=== PATIENT | male | born 1970 | race Caucasian/White ===

== ENCOUNTER 2018-04-25 15:22 | Emergency (ER) | payer MEDICARE, MEDICAID, SELFPAY ==
[2018-04-25 15:28] VITALS: BP 135/87; PULSE 86; RESP 20; TEMP 36.6; O2SAT 98; BMI 35.7
--- NOTE | 2018-04-25 16:50 | DI.RAD.S_ITS ---
PROCEDURE: XR HAND LT MIN 3V INDICATIONS: ? chronic infection/fb? TECHNIQUE: 3 views of the hand(s) acquired. COMPARISON: None. FINDINGS: Bones: No fractures or dislocations. Carpal bones are normally aligned. No suspicious bony lesions. Soft tissues: No suspicious soft tissue calcifications. IMPRESSION: No acute fracture. No osseous lesion. If symptoms and/or clinical suspicion for pathology persist, further assessment with repeat, or advanced imaging (e.g., CT, MRI, or bone scan) may be helpful for further assessment. Dictated by: Manuel Garcia M.D. on 04/25/2018 at 17:07 Approved by: Manuel Garcia M.D. on 04/25/2018 at 17:07
--- NOTE | 2018-04-25 17:14 | PC.NURSE ---
Patient has duct tape to top of right hand. States he had a wound on it a couple months ago which he treated at home by puncturing it with a needle. Has duct tape applied directly to the skin on the top of his hand, which I removed. Top of hand is red and swollen, no open wounds.
[2018-04-25 17:34] VITALS: BP 128/77; PULSE 80; RESP 15; O2SAT 99
--- NOTE | 2018-04-25 18:06 | PC.NURSE ---
Mother is standing in hallway asking to see the physician. I explained to her that the doctor would be there as soon as possible. He complains of pain to left hand, I gave him an ice pack for comfort. Mother reports Can they put some lidocaine in him? If someone doesn't see him soon he's going to cut it open himself. I asked her if he had anything in the room with which to cut it and if so I would take it away. She repllied no.
[2018-04-25] MEDS: fentaNYL 100 MCG/2 ML INJ IV (18:43)
[2018-04-25] MEDS: cephALEXin 250 MG PREPACK 1 BOTTLE MISC (18:45)
[2018-04-25] MEDS: SULFA/TRIMETH 800/160 PREPACK 1 BOTTLE MISC (18:48)
--- NOTE | 2018-04-25 19:14 | ED.UPPEXIN ---
HPI - Extremity Injury (Upper) General Chief Complaint: Extremity Injury, Upper Stated Complaint: STATES INFECTION LEFT HAND. Time Seen by Provider: 04/25/18 16:49 History of Present Illness HPI narrative: HPI 47-year-old male with TBI, ADD, personality disorder, HTN, and history of heroin abuse presents for evaluation of ~3 days of left mid dorsal and swelling approximately 5 cm in diameter with a 2 cm central area of fluctuance and increased tenderness, there is erythema and warmth. Patient reports that 2 months ago he cut the back of his hand on a piece of glass and has had problems with infection since. Denies fevers and chills. ROS with no recent constitutional symptoms. Exam Gen: Pleasant, nontoxic-appearing, resting comfortably. HEENT: NC, AT, PEERL, EOMI. Resp: Unlabored respirations with a normal work of breathing. Card: Extremities warm and well perfused. GI: Non-distended. : Deferred MSK: left-hand with a 5 cm in diameter area of erythema, warmth, and tenderness with a 2 cm central area of fluctuance and increased tenderness. No palpable crepitus. 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 Globally reduced ROM of flexion, extension, abduction, adduction, opposition secondary to dorsal discomfort. Wrist visually normal. All fingers warm and well perfused with sensation intact to touch. Neuro: AO x 3, no facial asymmetry, vision and hearing WNL. Heme/Lymph: Deferred Skin: Normal color with no visible lesions (other than noted above). Psych: Mood and affect appropriate. Focused Soft Tissue Ultrasound Procedure: Limited evaluation of the dorsum of the left hand. Indication: Evaluation for abscesses and foreign bodies. Views obtained: sagittal and transverse. Findings: central fluid collection of approximately 1.2 cm in diameter and 0.5 cm deep, surrounding soft tissue cobblestoning. No gas. No foreign bodies visualized. MDM Previous chart, nursing note, and vitals reviewed. A/P: 47-year-old male with TBI, ADD, personality disorder, HTN, and history of heroin abuse presents for evaluation of ~3 days of left mid dorsal and swelling approximately 5 cm in diameter with a 2 cm central area of fluctuance and increased tenderness, there is erythema and warmth. Soft tissue ultrasound demonstrating cellulitis with the central abscess immediately under the skin. This was drained as below. Patient given Bactrim and Keflex in the ED with outpatient prescriptions provided. Patient instructed to follow up with hand surgeon park recreation manager, Dr. Gilliland of [facility]. Return to care precautions provided. Incision and Drainage Verbal consent obtained. The abscess and surrounding area was cleaned with chlorhexidine for 30 seconds. A field block using 3 mL of 1% lidocaine with epinephrine was performed. An 11 blade was used to make two 0.6 cm long incisions on either end of the area of fluctuance, there was expression of purulent material, sterile hemostats were used to break loculations and a sterile section of Basom drain was placed as a loop between the 2 incisions to allow for further drainage. A sterile dressing was placed over the wound. The patient tolerated the procedure well without any apparent complications. Impression: abscess (please reference below for remainder of encounter information) Related Data Previous Rx's Medication Instructions Recorded alprazolam [Xanax] 1 mg PO QID #120 tab 11/17/17 lisinopril 10 mg PO QDAY #90 tab 11/17/17 sumatriptan succinate [Imitrex] 100 mg PO PRN PRN #9 tab 11/17/17 verapamil 80 mg PO QDAY #90 tab 11/17/17 zolpidem 10 mg PO HS #30 tab 11/17/17 prazosin [Minipress] 2 mg PO QHS #90 cap 01/10/18 dextroamphetamine-amphetamine 15 mg PO BID #60 tab 02/16/18 Allergies Allergy/AdvReac Type Severity Reaction Status Date / Time naproxen [NAPROXEN] Allergy Severe LE EDEMA Verified 04/25/18 15:27 [facility] Social History Smoking Status: Never smoker Exam Initial Vital Signs Initial Vital Signs: Vital Signs Temperature 98 F 04/25/18 15:28 Pulse Rate 86 04/25/18 15:28 Respiratory Rate 20 04/25/18 15:28 Blood Pressure 135/87 H 04/25/18 15:28 Pulse Oximetry 98 04/25/18 15:28 Course Orders Ordered: ED Orders 04/25/18 16:50 XR hand LT min 3V Stat Discontinued Medications Cefazolin Sodium (Keflex) 1 bottle MISC SEEINSTR ONE Stop: 04/25/18 18:28 Last Admin: 04/25/18 18:45 Dose: 250 mg Fentanyl (Sublimaze) 100 mcg IV NOW ONE Stop: 04/25/18 18:28 Last Admin: 04/25/18 18:43 Dose: 100 mcg Trimethoprim/Sulfamethoxazole (Bactrim Ds Prepack) 1 bottle MISC SEEINSTR ONE Stop: 04/25/18 18:28 Last Admin: 04/25/18 18:48 Dose: 1 bottle Vital Signs - 8 hr 04/25/18 15:28 04/25/18 17:34 Temperature 98 F Pulse Rate 86 80 Respiratory Rate 20 15 Blood Pressure 135/87 H Blood Pressure [Right Arm] 128/77 H Pulse Oximetry 98 99 Discharge Plan Departure Prescriptions: No Action alprazolam [Xanax] 1 MG tablet 1 mg PO QID Qty: 120 RF: 5 sumatriptan succinate [Imitrex] 100 MG tablet 100 mg PO PRN PRNQty: 9 RF: 3 lisinopril 10 MG tablet 10 mg PO QDAY Qty: 90 RF: 3 verapamil 80 MG tablet 80 mg PO QDAY Qty: 90 RF: 3 zolpidem 10 MG tablet 10 mg PO HS Qty: 30 RF: 5 prazosin [Minipress] 2 MG capsule 2 mg PO QHS Qty: 90 RF: 3 dextroamphetamine-amphetamine 15 MG tablet 15 mg PO BID Qty: 60 RF: 0
--- NOTE | 2018-04-25 19:32 | PC.NURSE ---
NON-STICK DRESSING PLACED ON LEFT HAND, PER PROVIDER.
[2018-04-25 19:34] VITALS: BP 135/87; PULSE 86; RESP 20; TEMP 36.6; O2SAT 98
== END 2018-04-25 19:37 | disposition home or self-care (01) ==
PROVIDERS: Emergency Provider Emergency Medicine; PCP Family Medicine
DX: L02.512 Cutaneous abscess of left hand (principal)
CPT/HCPCS: 10060; 73130; 96374; 99283; 99284; J3010

== ENCOUNTER 2018-08-09 11:13 | Emergency (ER) | payer MEDICARE, MEDICAID, SELFPAY ==
[2018-08-09 11:25] VITALS: BP 140/85; PULSE 82; RESP 20; TEMP 36.7; O2SAT 96; BMI 35.7
--- NOTE | 2018-08-09 13:34 | ED_ITS ---
HPI - Extremity Injury (Upper) <NALLELY PastranaBC - Last Filed: 08/09/18 15:06> General Chief Complaint: Extremity Injury, Upper Stated Complaint: LEFT ARM INFECTION Time Seen by Provider: 08/09/18 13:21 Source: patient Mode of arrival: ambulatory Limitations: no limitations History of Present Illness HPI narrative: Patient presents with chief complaint of abscess in his left AC. Patient states he believes he gets abscesses from using ?bad heroin.? He denies any fevers, nausea, vomiting, diarrhea. He complains of redness and pain in his left AC. He stuck a needle in it yesterday to try to drain it himself and states he ?got some pus out.? He states he is able to use his right arm and bend his left elbow, but not as far due to pain. Related Data Home Medications Medication Instructions Recorded Confirmed verapamil 80 mg PO QPM 08/09/18 08/09/18 Previous Rx's Medication Instructions Recorded lisinopril 10 mg PO QDAY #90 tab 11/17/17 zolpidem 10 mg tablet 10 mg PO HS #30 tab 05/11/18 clonazepam 2 mg tablet 2 mg PO BID #60 tab 08/09/18 dextroamphetamine-amphetamine 15 15 mg PO BID #60 tab 08/09/18 mg tablet sulfamethoxazole-trimethoprim 1 tab PO BID #20 tab 08/09/18 [Bactrim DS] Allergies Allergy/AdvReac Type Severity Reaction Status Date / Time naproxen [NAPROXEN] Allergy Severe LE EDEMA Verified 04/25/18 15:27 Review of Systems <NALLELY Pastrana - Last Filed: 08/09/18 15:06> Review of Systems GENERAL: Denies chills, fatigue, malaise, fever, sweats. HEENT: Denies sinus pain, ear pain, sore throat, difficulty swallowing, dizziness. RESPIRATORY: Denies dyspnea, cough, wheezing, hemoptysis, sputum. CARDIOVASCULAR: Denies chest pain, palpitations, orthopnea, edema, GASTROINTESTINAL: Denies nausea, vomiting, abdominal pain, diarrhea, constipation, melena. : Denies dysuria, frequency, incontinence, hematuria, urinary retention. MUSCULOSKELETAL: denies weakness, joint pain, or bony pain SKIN: See HPI NEUROLOGIC: Denies weakness, headache, numbness, change in speech, confusion, seizures, incoordination. PSYCHIATRIC: No concerning psychosocial issues. 12 point review of systems is negative except for those stated above Exam <BEBA Pastrana - Last Filed: 08/09/18 15:06> Narrative Exam Narrative: GENERAL: This is a well-nourished, well-developed patient, in mild distress. HEAD: Atraumatic. Normocephalic. No temporal or scalp tenderness. EYES: Pupils equal round and reactive. Extraocular motions intact. No scleral icterus. No injection or drainage. ENT: Nose without bleeding, purulent drainage or septal hematoma. Throat without erythema, tonsillar hypertrophy or exudate. Uvula midline. Airway patent. NECK: Trachea midline. No JVD or lymphadenopathy. Supple, nontender, no meningeal signs. CARDIOVASCULAR: Regular rate and rhythm without murmurs, gallops, or rubs. RESPIRATORY: Clear to auscultation. Breath sounds equal bilaterally. No wheezes , rales, or rhonchi. GASTROINTESTINAL: Abdomen soft, non-tender, nondistended. No hepato-splenomegaly , or palpable masses. No guarding. EXTREMITIES: No clubbing, cyanosis, or edema. No joint tenderness, effusion, or edema noted. BACK: Nontender without deformity or crepitance. No flank tenderness. NEURO: AOx3. SKIN: 10 but 11 cm area of erythema noted left AC. 1x2 cm area fluctuance noted left AC Initial Vital Signs Initial Vital Signs: Vital Signs Temperature 98.1 F 08/09/18 11:25 Pulse Rate 82 08/09/18 11:25 Respiratory Rate 20 08/09/18 11:25 Blood Pressure 140/85 08/09/18 11:25 Pulse Oximetry 96 08/09/18 11:25 <Joaquina Hilario MD - Last Filed: 08/09/18 18:59> Initial Vital Signs Initial Vital Signs: Vital Signs Temperature 98.1 F 08/09/18 11:25 Pulse Rate 82 08/09/18 11:25 Respiratory Rate 20 08/09/18 11:25 Blood Pressure 140/85 08/09/18 11:25 Pulse Oximetry 96 08/09/18 11:25 Procedures <BEBA Pastrana - Last Filed: 08/09/18 15:06> Abscess I/D Site: upper extremity Side (if applicable): left Local Anesthetic: lidocaine 2% Amount of anesthesia used (mL): 4 Technique: incised with #11 blade Amount of fluid expressed (mL): 0 Irrigation: No Packing used?: none Course <BEBA Pastrana - Last Filed: 08/09/18 15:06> Vital Signs - 8 hr 08/09/18 11:25 Temperature 98.1 F Pulse Rate 82 Respiratory Rate 20 Blood Pressure 140/85 Pulse Oximetry 96 <Joaquina Hilario MD - Last Filed: 08/09/18 18:59> Vital Signs - 8 hr 08/09/18 11:25 Temperature 98.1 F Pulse Rate 82 Respiratory Rate 20 Blood Pressure 140/85 Pulse Oximetry 96 MDM - Extremity Injury (Upper) <BEBA Pastrana - Last Filed: 08/09/18 15:06> MDM Narrative Medical decision making narrative: Patient presents with concern for an abscess in his left AC. He has been draining it by himself at home with a needle or a knife. I discussed that I did not think I would obtain much of anything from an incision and drainage, but the patient requested that I try any way. No pus or fluid was obtained from his AC as documented. Given the erythema, I initiated treatment with Bactrim. He does have a history of IV drug use, which places him higher risk for MRSA infection. He does not have any signs of systemic illness at this point time. I discussed monitoring for the signs including fever, vomiting and extending of erythema beyond the outline [place] after doses of antibiotics. Patient no questions or concerns upon discharge and stated understanding of this plan of care. Discharge Plan Departure Patient Disposition: Home Clinical Impression: Cellulitis Discharge Date/Time: 08/09/18 15:06 Interventions: ED Discharge Assessment Last Done: 08/09/18 15:04 Instructions: DI for Cellulitis -- Adult Activity Restrictions/Additional Instructions: I am starting on antibiotics for the infection in her arm. Please stop doing IV drugs. Please monitor for fever, vomiting, diarrhea and systemic symptoms. Please be direct evaluated if any of these occur. Please monitor for redness extending outside of the marker after a few doses of the antibiotics and please be evaluated if that occurs. Prescriptions: New sulfamethoxazole-trimethoprim [Bactrim DS] 800-160 mg tablet 1 tab PO BID Qty: 20 RF: 0 No Action lisinopril 10 MG tablet 10 mg PO QDAY Qty: 90 RF: 3 zolpidem 10 mg tablet 10 mg PO HS Qty: 30 RF: 5 clonazepam 2 mg tablet 2 mg PO BID Qty: 60 RF: 0 dextroamphetamine-amphetamine 15 mg tablet 15 mg PO BID Qty: 60 RF: 0 verapamil 80 MG tablet 80 mg PO QPM RF: 0 Referrals: Liz Livingston MD [Primary Care Provider] -
== END 2018-08-09 15:06 | disposition home or self-care (01) ==
PROVIDERS: Emergency Provider Nurse Practitioner Family; PCP Family Medicine
DX: L03.114 Cellulitis of left upper limb (principal)
CPT/HCPCS: 10060; 99282; 99283

== ENCOUNTER 2018-11-13 14:33 | Emergency (ER) | payer MEDICARE, MEDICAID, SELFPAY ==
[2018-11-13 14:55] VITALS: TEMP 36.4; BMI 35.7
== END 2018-11-13 15:56 | disposition left against medical advice (07) ==
LOC: ED 14:57
PROVIDERS: PCP Family Medicine
DX: L02.415 Cutaneous abscess of right lower limb (principal)
CPT/HCPCS: 99281; 99282

== ENCOUNTER 2018-11-14 08:59 | Emergency (ER) | payer MEDICARE, MEDICAID, SELFPAY ==
[2018-11-14 09:18] VITALS: BP 121/71; PULSE 82; RESP 16; TEMP 37.3; O2SAT 100; BMI 35.7
[2018-11-14 12:17] VITALS: BP 116/58; PULSE 79; RESP 17; TEMP 37.1; O2SAT 100
[2018-11-14 13:00] VITALS: BP 99/50; PULSE 73; O2SAT 100
--- NOTE | 2018-11-14 13:29 | ED_ITS ---
HPI - Extremity Problem General Chief complaint: Extremity Injury, Lower Stated complaint: ABCESS ON RIGHT LEG Time Seen by Provider: 11/14/18 13:11 Source: patient and old records reviewed Mode of arrival: ambulatory Limitations: no limitations History of Present Illness HPI Narrative: This a 47-year-old male comes to the emergency department with complaint of abscess on his right lower extremity. Patient states he has 3 areas. He states that he waited longer to come in because in the past we have not drain numb just started him on antibiotics. One of them has been draining purulent fluid the other 2 he states seem ready and are soft. Patient is unaware of any fevers at, he denies any chest pain or shortness of breath, no nausea or vomiting. No other GI or urinary symptoms. He states he has abscess is quite frequently secondary to IV drug abuse and does inject into his legs. He states he often responds well to oral antibiotics he states he has been quite uncomfortable in his lower extremity, he denies any numbness, he denies any weakness, no loss of sensation. No new other color changes other than redness surrounding the areas of infection. Related Data Home Medications Medication Instructions Recorded Confirmed verapamil 80 mg PO QPM 08/09/18 11/14/18 lisinopril 10 mg PO DAILY 11/13/18 11/14/18 zolpidem 10 mg PO BEDTIME 11/13/18 11/14/18 Previous Rx's Medication Instructions Recorded clonazepam 2 mg tablet 2 mg PO BID #60 tab 10/04/18 dextroamphetamine-amphetamine 15 15 mg PO BID #60 tab 10/04/18 mg tablet clindamycin HCl 300 mg PO QID #40 cap 11/14/18 Allergies Allergy/AdvReac Type Severity Reaction Status Date / Time naproxen [NAPROXEN] Allergy Severe LE EDEMA Verified 11/14/18 09:17 Review of Systems Review of Systems All systems reviewed & are unremarkable except as noted in HPI and below Constitutional Denies chills, Denies fever(s) and Denies weakness Cardiovascular Denies chest pain, Denies edema, Denies dyspnea and Denies dyspnea on exertion Respiratory Denies chest congestion, Denies cough, Denies dyspnea and Denies dyspnea on exertion Gastrointestinal Gastrointestinal: Denies abdominal pain, Denies change in bowel habits, Denies diarrhea, Denies nausea and Denies vomiting Musculoskeletal Reports as per HPI, Reports limited range of motion (Sec pain), Denies muscle weakness, Denies numbness and Reports other (Redness, abscess) Integumentary/Breasts Reports as per HPI, Reports new lesions, Reports wounds and Reports other ( abscess x 3) Neurologic Denies numbness, Denies sensory deficit and Denies weakness [facility]LY [facility] Social History Smoking Status: Never smoker substance use type: IV drugs Exam Narrative Exam Narrative: GENERAL: Alert and oriented x three, obese male in moderate distress HEENT: Head normocephalic, atraumatic, EOMI, pupils reactive, face symmetric, moist mucous membranes NECK: Supple, full range of motion CARDIOVASCULAR: Regular rate and rhythm without murmurs, rubs or gallops. RESPIRATORY: Breath sounds equal bilaterally, no wheezes rales or rhonchi. ABDOMEN: Soft, nontender. Normoactive bowel sounds all 4 quadrants. No guarding or rebound, rigidity, no mass EXTREMITIES: Normal range of motion, no clubbing or edema. Neurovascularly intact. Patient has 2+ dorsalis pedis on the right. He has cap refill less than 2 sec in all 5 toes. Patient has a large abscess on the right, there are 2 present 1 which appears to be draining with an open wound about 3 cm in circumference, there is purulent fluid expressed with palpation. The 2nd 1 is about 5 cm in circumference with erythema extending another 2 or 3 cm. It is soft and fluctuant and tender. Patient also has a small area of induration on the right inner thigh that is about 4 cm in size although it is not erythematous. I am unable to palpate any fluctuant area on the inner thigh. NEUROLOGICAL: Cranial nerves II through XII grossly intact. Moving all extremities SKIN: Warm, dry, no petechiae, no rashes or lesions. Initial Vital Signs Initial Vital Signs: Vital Signs Temperature 99.1 F 11/14/18 09:18 Pulse Rate 82 11/14/18 09:18 Respiratory Rate 16 11/14/18 09:18 Blood Pressure 121/71 11/14/18 09:18 Pulse Oximetry 100 11/14/18 09:18 Procedures Abscess I/D Site: lower extremity (Hip outer thigh) Side (if applicable): right Local Anesthetic: lidocaine 1% Amount of anesthesia used (mL): 4 Technique: incised with #11 blade Amount of fluid expressed (mL): 8 Irrigation: Yes Misc Procedure Name of Procedure: Right inner thigh Area was prepped with chlorhexidine. Two and half cc of lidocaine was injected into the site. No blood was aspirated prior to injection. Abscess was incised with a 11 blade. There was moderate purulent drainage. Area was probed to break up loculations, cultures were obtained. Hemostasis was achieved. Course Orders Ordered: ED Orders 11/14/18 13:26 Wound Culture and Gram Stain Stat 11/14/18 13:27 US extremity nonvasc lower rt Stat Discontinued Medications Clindamycin HCl (Cleocin) 300 mg PO NOW ONE Stop: 11/14/18 16:57 Sodium Chloride (Normal Saline 0.9%) 1,000 mls @ 1,000 mls/hr IV BOLUS ONE Stop: 11/14/18 14:24 Last Infusion: 11/14/18 16:05 Dose: 0 mls/hr Admin: 11/14/18 14:33 Dose: 1,000 mls/hr Clindamycin Phosphate (Cleocin) 600 mg in 50 mls @ 50 mls/hr IV NOW ONE Stop: 11/14/18 15:46 Last Infusion: 11/14/18 16:05 Dose: 0 mls/hr Admin: 11/14/18 14:55 Dose: 50 mls/hr Vital Signs - 8 hr 11/14/18 12:17 11/14/18 13:00 11/14/18 14:44 Temperature 98.8 F Pulse Rate 79 73 74 Respiratory Rate 17 16 Blood Pressure [Left Arm] 116/58 L 99/50 L 115/74 Pulse Oximetry 100 100 99 11/14/18 15:45 Temperature Pulse Rate 73 Respiratory Rate 19 Blood Pressure [Left Arm] 109/62 Pulse Oximetry 100 MDM - Extremity (Nontraumatic) Lab Data Result diagrams: 11/14/18 Unknown 11/14/18 Unknown Lab Results 11/14/18 11/14/18 Range/Units Unknown Unknown WBC 11.1 H (4.5-11.0) X10^3/uL RBC 4.80 (4.5-5.9) X10^6/uL Hgb 12.9 L (13.5-17.5) g/dL Hct 40.5 L (41-53) % MCV 84.4 (80-100) fL MCH 26.8 (26-34) PG MCHC 31.7 (30-36) % RDW 15.7 H (11.6-14.8) % Plt Count 309 (150-400) X10^3/uL Neut % (Auto) 79.5 H (50-75) % Lymph % (Auto) 10.8 L (25-40) % [place] % (Auto) 8.3 (3-14) % Eos % (Auto) 0.8 L (2-4) % Baso % (Auto) 0.6 (0-2) % Neut # (Auto) 8800 H (3768-4334) /uL Sodium 141 (137-145) mmol/L Potassium 4.5 (3.4-5.1) mmol/L Chloride 103 (98-107) mmol/L Carbon Dioxide 26 (22-32) mmol/L BUN 26 H (9-20) mg/dL Creatinine 1.30 H (0.66-1.25) mg/dL Estimated GFR 58.9 L (>60) mL/min BUN/Creatinine Ratio 20.0 (6-22) Glucose 102 H (70-100) mg/dL Calcium 8.7 (8.4-10.2) mg/dL Total Bilirubin 0.6 (0.2-1.3) mg/dL AST 125 H (17-59) IU/L ALT 167 H (21-72) IU/L Alkaline Phosphatase 100 (38-126) U/L Total Protein 7.6 (6.3-8.2) g/dL Albumin 3.7 (3.5-5.0) g/dL Globulin 3.9 (1.7-4.1) g/dL Albumin/Globulin Ratio 0.9 L (1.0-2.8) Imaging Data Lower extremity ultrasound: Radiologist's impression: [address] [address] Ultrasound Report Signed Patient: Ernesto Lr MR#: [id number] : 1970 Acct:[id number] Age/Sex: 47 / M Date of Service: 11/14/18 Loc: ED Accession Number: [id number] Procedure: US extremity nonvasc lower rt Ordering Provider: Alia Eng D.O. PROCEDURE: US EXTREMITY NONVASC LOWER RT INDICATIONS: MULTIPLE ABSCESSES; POSSIBLE FISTULA TECHNIQUE: Real-time scanning was performed of the right upper thigh, with image documentation. COMPARISON: None. FINDINGS: Targeted sonographic imaging of the upper aspect of the right thigh was performed. Along the lateral margin of the right upper thigh and near the level of the open wound, there is no obvious fluid collection or soft tissue mass. Mild subcutaneous edema within this region is identified. Along the posterolateral aspect of the upper right thigh, there is a 2.8 x 1.8 x 3.3 cm complex fluid collection identified within the subcutaneous tissues it does not demonstrate internal vascularity. Additional areas of subcutaneous edema are present. Along the medial aspect of the right upper thigh there is a complex fluid collection identified that is hypoechoic within the subcutaneous tissues that measures 1.6 x 0.9 x 1.4 cm. No internal vascularity is evident. No enlarged lymph nodes are appreciated. IMPRESSION: 1. There are at least 2 complex fluid collections, likely representing abscesses, along the medial and posterolateral margins of the thigh. 2. No drainable fluid collection is evident at the site of the patient's open wound along the lateral margin of the right thigh. Dictated by: Tarun Elizabeth M.D. on 11/14/2018 at 13:47 Approved by: Tarun Elizabeth M.D. on 11/14/2018 at 13:49 MDM Narrative Medical decision making narrative: Discussed with patient secondary to the large areas of abscess and the fact that they are adjacent would like to get a formal ultrasound to make sure there are no fistulas or areas connecting the patient would not need to go to the OR for drainage. The 2nd abscess that is not open on his hip is quite large. Patient's inner thigh is not indurated and no fluctuance. It is also not erythematous. Discussed would like to give a dose of IV antibiotics do basic lab work. Patient is reluctant but willing at this time. He states that he is allergic to medications such as Toradol they make his ankle swell up. Ultrasound shows 2 complex abscesses and another other does not have any fluid the 1 that is already draining. Spoke with Dr. Navas from general surgery is a complex he recommends IUD in the emergency department with wicking detail. He would not recommend OR for this at this time. Patient had incision and drainage of both areas. He had moderate purulent drainage but not large amount. Discussed with patient he would prefer to return home at this time, given a dose of IV clindamycin here, started on clindamycin orally and plan for him to return in 24 hr if continuing to worsen as he will likely need surgical intervention. Discharge Plan Departure Patient Disposition: Home Clinical Impression: Abscess of right thigh, Abscess of hip, right Discharge Date/Time: 11/14/18 17:02 Interventions: ED Discharge Assessment Last Done: 11/14/18 17:03 Instructions: DI for Skin Abscess Activity Restrictions/Additional Instructions: Follow-up in the next 24-48 hours for recheck Wound Care: Keep wound(s) clean and dry. Wash daily with soap and water only. Use warm compresses over the abscesses 4 times daily. Do not use over the counter products (alcohol or peroxide)on the wounds unless instructed by a physician. If wound condition worsens (increased/expanding redness, developing fluid blisters, or worsening pain), either contact your doctor for an urgent re- assessment , or return to the Emergency Department. Return to the Emergency Department for any new or worsening symptoms. Return if fever greater than 100.4 Fahrenheit, increased swelling, increasing pain or worsening symptoms such as increased discharge or spreading redness. Use warm compresses 3 times daily for 20 minutes to the affected area. If there is packing in place do not pull it out, if it falls out do not try to replace it. Prescriptions: New clindamycin HCl 300 mg capsule 300 mg PO QID Qty: 40 RF: 0 No Action clonazepam 2 mg tablet 2 mg PO BID Qty: 60 RF: 1 dextroamphetamine-amphetamine 15 mg tablet 15 mg PO BID Qty: 60 RF: 0 lisinopril 10 mg tablet 10 mg PO DAILY RF: 0 zolpidem 10 mg tablet 10 mg PO BEDTIME RF: 0 verapamil 80 MG tablet 80 mg PO QPM RF: 0 Referrals: Liz Livingston MD [Physician] -
--- NOTE | 2018-11-14 13:38 | PC.NURSE ---
several areas of redness/swelling to rt hip/thigh pt reports as site of injecting drugs into muscle, reports worsening over several weeks, history of same, he reports in the past infections have resolved with PO abx, denies fever/chills/nausea/vomiting/diarrhea/cp/soa or other sx, rt hip draining small amount serosanguineous
[2018-11-14 14:26] LABS: Add Manual Diff / Slide Review NO; Basophils Percent Auto 0.6 % (0-2); Eosinophils Percent Auto 0.8 % (2-4); Hematocrit 40.5 % (41-53); Hemoglobin 12.9 g/dL (13.5-17.5); Lymphocytes Percent Auto 10.8 % (25-40); Mean Corpuscular HGB Conc 31.7 % (30-36); Mean Corpuscular Hemoglobin 26.8 PG (26-34); Mean Corpuscular Volume 84.4 fL (80-100); Monocytes Percent Auto 8.3 % (3-14); Neutrophils Absolute Auto 8800 /uL (1500-7000); Neutrophils Percent Auto 79.5 % (50-75); Platelet Count 309 X10^3/uL (150-400); Red Cell Distribution Width 15.7 % (11.6-14.8); White Blood Cell Count 11.1 X10^3/uL (4.5-11.0)
[2018-11-14] MEDS: SODIUM CHLORIDE 0.9% 1,000 ML 1000 ML IV (14:33)
[2018-11-14 14:43] LABS: Alanine Aminotransferase 167 IU/L (21-72); Albumin 3.7 g/dL (3.5-5.0); Albumin Globulin Ratio 0.9 (1.0-2.8); Alkaline Phosphatase 100 U/L (38-126); Aspartate Aminotransferase 125 IU/L (17-59); Bilirubin Total 0.6 mg/dL (0.2-1.3); Blood Urea Nitrogen 26 mg/dL (9-20); Calcium 8.7 mg/dL (8.4-10.2); Carbon Dioxide 26 mmol/L (22-32); Chloride 103 mmol/L (98-107); Estimated Glomerular Filt Rate 58.9 mL/min (>60); Globulin 3.9 g/dL (1.7-4.1); Glucose 102 mg/dL (70-100); HEMOLYSIS 29 (0-50); Potassium 4.5 mmol/L (3.4-5.1); Sodium 141 mmol/L (137-145); Total Protein 7.6 g/dL (6.3-8.2)
[2018-11-14 14:44] VITALS: BP 115/74; PULSE 74; RESP 16; O2SAT 99
[2018-11-14] MEDS: CLINDAMYCIN 600 MG/50 ML PIGGYBACK 50 MG IV (14:55)
[2018-11-14 15:45] VITALS: BP 109/62; PULSE 73; RESP 19; O2SAT 100
== END 2018-11-14 17:02 | disposition home or self-care (01) ==
PROVIDERS: Emergency Provider Emergency Medicine
DX: L02.415 Cutaneous abscess of right lower limb (principal)
CPT/HCPCS: 10060; 36591; 76882; 80053; 85025; 96361; 96365; 99283; 99284

== ENCOUNTER → 2019-08-23 11:40 | Outpatient (CLI) | payer MEDICARE, MEDICAID, SELFPAY ==
--- NOTE | 2019-08-23 | DI.RAD.S_ITS ---
PROCEDURE: XR CHEST 2V INDICATIONS: SOB, COUGH, WHEEZES TECHNIQUE: 2 views of the chest were acquired. COMPARISON: [facility], , CHEST 2 VIEW, 12/12/2009, 9:54. FINDINGS: Surgical changes and devices: None. Lungs and pleura: Lungs are clear. No pleural effusions or pneumothorax. Mediastinum: Mediastinal contours are normal. Heart size is normal. Bones and chest wall: No suspicious bony abnormalities. Soft tissues appear unremarkable. IMPRESSION: No acute disease Dictated by: Bradford Jacobs M.D. on 08/23/2019 at 14:10 Approved by: Bradford Jacobs M.D. on 08/23/2019 at 14:11
== END ==
PROVIDERS: Family Provider Student in an Organized Health Care Education/Training Program; PCP Student in an Organized Health Care Education/Training Program; Visit Provider Nurse Practitioner Family
DX: R06.02 Shortness of breath (principal); R05 Cough; R06.2 Wheezing
CPT/HCPCS: 71046

== ENCOUNTER 2021-03-14 16:13 | Emergency (ER) | payer MEDICARE, MEDICAID, SELFPAY ==
[2021-03-14 16:21] VITALS: BP 170/98; PULSE 75; RESP 19; TEMP 37.3; O2SAT 98; BMI 30.1
[2021-03-14 17:48] LABS: Alanine Aminotransferase 11 IU/L (<50); Albumin 4.2 g/dL (3.5-5.0); Albumin Globulin Ratio 1.1 (1.0-2.8); Alkaline Phosphatase 120 U/L (38-126); Aspartate Aminotransferase 19 IU/L (17-59); BUN Creatinine Ratio 13.2 (6-22); Bilirubin Total 0.3 mg/dL (0.2-1.3); Blood Urea Nitrogen 18 mg/dL (9-20); Calcium 9.8 mg/dL (8.4-10.2); Carbon Dioxide 27 mmol/L (22-32); Chloride 102 mmol/L (98-107); Estimated Glomerular Filt Rate 55.2 mL/min (>60); Globulin 3.9 g/dL (1.7-4.1); Glucose 119 mg/dL (70-100); HEMOLYSIS 19 (0-50); Sodium 138 mmol/L (137-145); Total Protein 8.1 g/dL (6.3-8.2)
[2021-03-14 18:02] LABS: Add Manual Diff / Slide Review NO; Basophils Absolute Auto 100 /uL (0-100); Basophils Percent Auto 0.7 % (0-2); Eosinophils Absolute Auto 0 /uL (0-450); Eosinophils Percent Auto 0.4 % (2-4); Hematocrit 38.1 % (41-53); Hemoglobin 12.6 g/dL (13.5-17.5); Lymphocytes Absolute Auto 2000 /uL (1100-4500); Lymphocytes Percent Auto 17.7 % (25-40); Mean Corpuscular HGB Conc 33.2 % (30-36); Mean Corpuscular Hemoglobin 28.1 PG (26-34); Mean Corpuscular Volume 84.7 fL (80-100); Monocytes Absolute Auto 700 /uL (0-900); Monocytes Percent Auto 6.7 % (3-14); Neutrophils Absolute Auto 8300 /uL (1500-7000); Neutrophils Percent Auto 74.5 % (50-75); Platelet Count 344 X10^3/uL (150-400); Red Cell Distribution Width 13.9 % (11.6-14.8); White Blood Cell Count 11.1 X10^3/uL (4.5-11.0)
--- NOTE | 2021-03-14 18:08 | PC.NURSE ---
Pt has multiple abscesses to legs and arms. Most look to be in various stages and not acute. Pt has open abscess to right lateral thigh. A reddened abscess to right lateral abdomen and left lateral lower leg
[2021-03-14 18:10] LABS: Lactate (Lactic Acid) 1.4 mmol/L (0.7-2.1)
--- NOTE | 2021-03-14 18:20 | ED.WOUNDLAC ---
HPI - Wound/Laceration General Chief Complaint: Wound/Laceration Stated Complaint: Rt side/BI leg abcess Time Seen by Provider: 03/14/21 17:56 Source: patient Mode of arrival: Family Vehicle Limitations: no limitations History of Present Illness HPI narrative: The patient abuses heroin. He has multiple skin lesions from skin popping. His abscess formation his right flank, 2 on his right lower leg, and another to the left lateral leg just distal to the knee. Pain and swelling started evolving the right flank about 2 weeks ago. The 3 lesions on his lower extremities seem to flare up about 1 week ago. Particularly 1 left leg developed a lot of erythema. He was seen a Suboxone clinic 6 days ago, the provider put on Septra DS. He has significant pain at the sites. He has no fever chills. He has previously drained abscess itself. There are no drainage from either the sites. He says he has been clean for 1 week. Related Data Home Medications Medication Instructions Recorded Confirmed buprenorphine 8 mg-naloxone 2 mg 2 film BUCCAL Q24H each 07/02/20 01/02/21 sublingual film glecaprevir 100 mg-pibrentasvir 40 3 tab PO DAILY 07/02/20 07/02/20 mg tablet Previous Rx's Medication Instructions Recorded sumatriptan succinate 50 mg tablet 50 mg PO Q2H PRN #14 tab 07/02/20 clonazepam 2 mg tablet See Rx Instructions PO BID #90 tab 02/06/21 dextroamphetamine-amphetamine 15 See Rx Instructions .ROUTE 02/06/21 mg tablet .COMPLEX #60 tab lisinopril 10 mg tablet 10 mg PO DAILY #90 tab 02/06/21 verapamil 80 mg tablet 80 mg PO BEDTIME #90 tab 02/06/21 zolpidem 10 mg tablet 10 mg PO BEDTIME #30 tab 02/06/21 sulfamethoxazole-trimethoprim 1 tab PO BID 7 Days #14 tab 03/14/21 Allergies Allergy/AdvReac Type Severity Reaction Status Date / Time naproxen [NAPROXEN] Allergy Severe LE EDEMA Verified 03/14/21 16:28 Review of Systems Constitutional Constitutional: Denies anorexia, Reports body ache(s), Denies chills, Reports fatigue, Denies fever(s) and Denies malaise Cardiovascular Cardiovascular: Denies chest pain, Denies irregular heart rhythm, Denies lightheadedness, Denies palpitations and Denies dyspnea Respiratory Respiratory: Denies cough and Denies dyspnea Gastrointestinal Gastrointestinal: Denies abdominal pain Integumentary/Breasts Skin/Breast: Reports furuncle and Reports lesions Endocrine Endocrine: Reports fatigue and Denies palpitations Patient History Medical History History of heroin abuse Hypertension Migraines Traumatic brain injury (~2011) Social History Smoking Status: Never smoker substance use type: IV drugs Smoking Status: Never smoker alcohol intake frequency: 0-2 drinks per day Substance Use Type: marijuana, heroin and IV drugs Exam Initial Vital Signs Initial Vital Signs: Vital Signs Temperature 99.1 F 03/14/21 16:21 Pulse Rate 75 03/14/21 16:21 Respiratory Rate 19 03/14/21 16:21 Blood Pressure 170/98 H 03/14/21 16:21 Pulse Oximetry 98 03/14/21 16:21 HENMT Head: normocephalic and atraumatic Mouth: oral mucosae normal and moist mucous membranes Throat: tonsils normal and uvula midline Resp Auscultation: clear to auscultation bilaterally Cardio Rate: regular rate Rhythm: regular rhythm Heart Sounds: S1 normal and S2 normal Skin Other: The patient has multiple skin lesions from heroin popping. There is a 2 x 4 cm abscess in the right flank, a 1.5 cm abscess on the right, lateral proximal tibia. A 2 cm abscess on the right, lateral distal tibia area. There is a 3 cm abscess on the left, lateral, proximal tibia area. There is cellulitis around the abscess in the left leg Procedures Abscess I/D The patient has 4 abscesses requiring I and D. verbal consent was obtained.: Site: abdomen Side (if applicable): right Local Anesthetic: lidocaine 1% Amount of anesthesia used (mL): 2 Technique: incised with #11 blade Amount of fluid expressed (mL): 4 Irrigation: Yes Packing used?: iodoform I&D #2: Site: lower extremity Side (if applicable): right Local Anesthetic: lidocaine 1% Amount of anesthesia used (mL): 2 Technique: incised with #11 blade Amount of fluid expressed (mL): 2 Irrigation: Yes Packing used?: iodoform I&D #3: Site: lower extremity Side (if applicable): right Local Anesthetic: lidocaine 1% Amount of anesthesia used (mL): 2 Technique: incised with #11 blade Amount of fluid expressed (mL): 2 Irrigation: Yes Packing used?: iodoform I&D #4: Site: lower extremity Side (if applicable): left Local Anesthetic: lidocaine 1% Amount of anesthesia used (mL): 2 Technique: incised with #11 blade Amount of fluid expressed (mL): 1 Irrigation: Yes Packing used?: iodoform Course Course Course Narrative: Multiple abscesses were drained and packed. The patient was recently prescribed Septra DS, he is down to 4 doses. I prescribed another week's worth of Septra DS. He is advised to return in 2-3 days for wound check. Orders Ordered: Discontinued Medications Acetaminophen (Acetaminophen 325 Mg Tablet) 975 mg PO NOW ONE Stop: 03/14/21 19:33 Last Admin: 03/14/21 19:46 Dose: 975 mg Documented by: GARRET Lidocaine HCl (Lidocaine 2% Inj Mdv) 10 ml SUBCUT NOW ONE Stop: 03/14/21 18:20 Last Admin: 03/14/21 18:30 Dose: 10 ml Documented by: EDUARDO Vital Signs Vital signs: Vital Signs - 8 hr 03/14/21 16:21 Temperature 99.1 F Pulse Rate 75 Respiratory Rate 19 Blood Pressure 170/98 H Pulse Oximetry 98 MDM - Wound/Laceration Lab Data Result diagrams: 03/14/21 17:45 03/14/21 17:10 Labs: Lab Results 03/14/21 03/14/21 03/14/21 Range/Units 17:10 17:45 17:45 WBC 11.1 H (4.5-11.0) X10^3/uL RBC 4.50 (4.5-5.9) X10^6/uL Hgb 12.6 L (13.5-17.5) g/dL Hct 38.1 L (41-53) % MCV 84.7 (80-100) fL MCH 28.1 (26-34) PG MCHC 33.2 (30-36) % RDW 13.9 (11.6-14.8) % Plt Count 344 (150-400) X10^3/uL Neut % (Auto) 74.5 (50-75) % Lymph % (Auto) 17.7 L (25-40) % [place] % (Auto) 6.7 (3-14) % Eos % (Auto) 0.4 L (2-4) % Baso % (Auto) 0.7 (0-2) % Neut # (Auto) 8300 H (4412-2604) /uL Lymph # (Auto) 2000 (9486-6566) /uL [place] # (Auto) 700 (0-900) /uL Eos # (Auto) 0 (0-450) /uL Baso # (Auto) 100 (0-100) /uL Sodium 138 (137-145) mmol/L Potassium 5.0 (3.4-5.1) mmol/L Chloride 102 (98-107) mmol/L Carbon Dioxide 27 (22-32) mmol/L BUN 18 (9-20) mg/dL Creatinine 1.36 H (0.66-1.25) mg/dL Estimated GFR 55.2 L (>60) mL/min BUN/Creatinine Ratio 13.2 (6-22) Glucose 119 H (70-100) mg/dL Lactate 1.4 (0.7-2.1) mmol/L Calcium 9.8 (8.4-10.2) mg/dL Total Bilirubin 0.3 (0.2-1.3) mg/dL AST 19 (17-59) IU/L ALT 11 (<50) IU/L Alkaline Phosphatase 120 (38-126) U/L Total Protein 8.1 (6.3-8.2) g/dL Albumin 4.2 (3.5-5.0) g/dL Globulin 3.9 (1.7-4.1) g/dL Albumin/Globulin Ratio 1.1 (1.0-2.8) Procalcitonin (<0.5) ng/mL 03/14/21 Range/Units 17:45 WBC (4.5-11.0) X10^3/uL RBC (4.5-5.9) X10^6/uL Hgb (13.5-17.5) g/dL Hct (41-53) % MCV (80-100) fL MCH (26-34) PG MCHC (30-36) % RDW (11.6-14.8) % Plt Count (150-400) X10^3/uL Neut % (Auto) (50-75) % Lymph % (Auto) (25-40) % [place] % (Auto) (3-14) % Eos % (Auto) (2-4) % Baso % (Auto) (0-2) % Neut # (Auto) (1780-8324) /uL Lymph # (Auto) (6027-7024) /uL [place] # (Auto) (0-900) /uL Eos # (Auto) (0-450) /uL Baso # (Auto) (0-100) /uL Sodium (137-145) mmol/L Potassium (3.4-5.1) mmol/L Chloride (98-107) mmol/L Carbon Dioxide (22-32) mmol/L BUN (9-20) mg/dL Creatinine (0.66-1.25) mg/dL Estimated GFR (>60) mL/min BUN/Creatinine Ratio (6-22) Glucose (70-100) mg/dL Lactate (0.7-2.1) mmol/L Calcium (8.4-10.2) mg/dL Total Bilirubin (0.2-1.3) mg/dL AST (17-59) IU/L ALT (<50) IU/L Alkaline Phosphatase (38-126) U/L Total Protein (6.3-8.2) g/dL Albumin (3.5-5.0) g/dL Globulin (1.7-4.1) g/dL Albumin/Globulin Ratio (1.0-2.8) Procalcitonin 0.06 (<0.5) ng/mL Discharge Plan Departure Patient Disposition: Home Clinical Impression: Abscess of multiple sites, Heroin abuse Instructions: DI for Skin Abscess Activity Restrictions/Additional Instructions: You should bathe regularly, clean the sites. Change bandages as needed. Septra DS 2 times daily as prescribed. Acetaminophen 2 tabs every 4 hours as needed for pain. Follow-up at a local walk-in clinic or return here in 2 days to have the wounds rechecked. Prescriptions: New sulfamethoxazole-trimethoprim 800-160 mg tablet 1 tab PO BID 7 Days Qty: 14 RF: 0 No Action clonazepam 2 mg tablet See Rx Instructions PO BID Qty: 90 RF: 0 zolpidem 10 mg tablet 10 mg PO BEDTIME Qty: 30 RF: 0 verapamil 80 mg tablet 80 mg PO BEDTIME Qty: 90 RF: 0 lisinopril 10 mg tablet 10 mg PO DAILY Qty: 90 RF: 0 dextroamphetamine-amphetamine 15 mg tablet See Rx Instructions .ROUTE .COMPLEX Qty: 60 RF: 0 buprenorphine-naloxone [Suboxone] 8-2 mg film 2 film BUCCAL Q24H RF: 0 Mavyret 100-40 mg tablet 3 tab PO DAILY RF: 0 sumatriptan succinate 50 mg tablet 50 mg PO Q2H PRN (Reason: migraine headache) Qty: 14 RF: 5 Referrals: Niraj Moses MD [Primary Care Provider] -
[2021-03-14 18:27] LABS: Procalcitonin 0.06 ng/mL (<0.5)
[2021-03-14] MEDS: LIDOCAINE 2% INJ MDV 10 ML SUBCUT (18:30)
[2021-03-14] MEDS: ACETAMINOPHEN 325 MG TABLET 975 MG PO (19:46)
[2021-03-14 20:45] VITALS: BP 172/100; PULSE 70; RESP 18; O2SAT 98
== END 2021-03-14 20:46 | disposition home or self-care (01) ==
PROVIDERS: Emergency Medicine; Emergency Provider Emergency Medicine; Family Provider Student in an Organized Health Care Education/Training Program; PCP Student in an Organized Health Care Education/Training Program
DX: L02.415 Cutaneous abscess of right lower limb (principal); L02.211 Cutaneous abscess of abdominal wall; L02.416 Cutaneous abscess of left lower limb; F11.10 Opioid abuse, uncomplicated
CPT/HCPCS: 10061; 36415; 80053; 83605; 84145; 85025; 87040; 87070; 87075; 87077; 87147; 87186; 87205; 99283

== ENCOUNTER 2021-03-16 11:36 | Emergency (ER) | payer MEDICARE, MEDICAID, SELFPAY ==
--- NOTE | 2021-03-16 11:39 | ED.SKABFB ---
HPI - Skin/Abscess/Foreign Bdy General Chief complaint: Recheck/Abnormal Lab/Rx Stated complaint: Follow Up Visit Time Seen by Provider: 03/16/21 11:39 Related Data Home Medications Medication Instructions Recorded Confirmed buprenorphine 8 mg-naloxone 2 mg 2 film BUCCAL Q24H each 07/02/20 01/02/21 sublingual film glecaprevir 100 mg-pibrentasvir 40 3 tab PO DAILY 07/02/20 07/02/20 mg tablet Previous Rx's Medication Instructions Recorded sumatriptan succinate 50 mg tablet 50 mg PO Q2H PRN #14 tab 07/02/20 clonazepam 2 mg tablet See Rx Instructions PO BID #90 tab 02/06/21 dextroamphetamine-amphetamine 15 See Rx Instructions .ROUTE 02/06/21 mg tablet .COMPLEX #60 tab lisinopril 10 mg tablet 10 mg PO DAILY #90 tab 02/06/21 verapamil 80 mg tablet 80 mg PO BEDTIME #90 tab 02/06/21 zolpidem 10 mg tablet 10 mg PO BEDTIME #30 tab 02/06/21 sulfamethoxazole-trimethoprim 1 tab PO BID 7 Days #14 tab 03/14/21 Allergies Allergy/AdvReac Type Severity Reaction Status Date / Time naproxen [NAPROXEN] Allergy Severe LE EDEMA Verified 03/16/21 11:46 Patient History Medical History History of heroin abuse Hypertension Migraines Traumatic brain injury (~2011) Social History Smoking Status: Never smoker substance use type: IV drugs Smoking Status: Never smoker alcohol intake frequency: 0-2 drinks per day Substance Use Type: marijuana, heroin and IV drugs Discharge Plan Departure Prescriptions: No Action clonazepam 2 mg tablet See Rx Instructions PO BID Qty: 90 RF: 0 zolpidem 10 mg tablet 10 mg PO BEDTIME Qty: 30 RF: 0 verapamil 80 mg tablet 80 mg PO BEDTIME Qty: 90 RF: 0 lisinopril 10 mg tablet 10 mg PO DAILY Qty: 90 RF: 0 dextroamphetamine-amphetamine 15 mg tablet See Rx Instructions .ROUTE .COMPLEX Qty: 60 RF: 0 buprenorphine-naloxone [Suboxone] 8-2 mg film 2 film BUCCAL Q24H RF: 0 [place]avy[place] 100-40 mg tablet 3 tab PO DAILY RF: 0 sumatriptan succinate 50 mg tablet 50 mg PO Q2H PRN (Reason: migraine headache) Qty: 14 RF: 5 sulfamethoxazole-trimethoprim 800-160 mg tablet 1 tab PO BID 7 Days Qty: 14 RF: 0
[2021-03-16 11:43] VITALS: BP 139/94; PULSE 67; RESP 12; O2SAT 99; BMI 28.7
--- NOTE | 2021-03-16 12:59 | ED_ITS ---
HPI - Skin/Abscess/Foreign Bdy <SAMANTHA Sharma - Last Filed: 03/16/21 14:13> General Chief complaint: Recheck/Abnormal Lab/Rx Stated complaint: Follow Up Visit Time Seen by Provider: 03/16/21 11:39 Source: patient Mode of arrival: Ambulatory Limitations: no limitations History of Present Illness HPI narrative: This is a 50-year-old male, nonsmoker, who has past medical history significant for ADD, HTN, anxiety, insomnia, skin abscess and heroin use presents to ED for wound recheck. Patient reports he was in ED 2 days ago and had 4 abscesses in flank, right lateral proximal tibia, right lateral distal tibia, and left lateral proximal tibia drained. Right lateral proximal tibia incision site closed and patient reports packing material removed during dressing change. Patient had just completed 1st course of antibiotic medication Septra b.i.d. 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 Wound culture came back as Staph infection. Patient denies fever, chills, nausea or vomiting. Patient has been changing outside dressed had left packing material and decided to come into ED for wound recheck. Patient reports had started Suboxone 6 days ago to stop drug use. Last heroin use 10 days ago. Patient reports his not sure how the abscess started. PCP Dr. Moses and he has on appointment 1300 today for follow-up which is going to miss this. Related Data Home Medications Medication Instructions Recorded Confirmed buprenorphine 8 mg-naloxone 2 mg 2 film BUCCAL Q24H each 07/02/20 01/02/21 sublingual film glecaprevir 100 mg-pibrentasvir 40 3 tab PO DAILY 07/02/20 07/02/20 mg tablet Previous Rx's Medication Instructions Recorded sumatriptan succinate 50 mg tablet 50 mg PO Q2H PRN #14 tab 07/02/20 clonazepam 2 mg tablet See Rx Instructions PO BID #90 tab 02/06/21 dextroamphetamine-amphetamine 15 See Rx Instructions .ROUTE 02/06/21 mg tablet .COMPLEX #60 tab lisinopril 10 mg tablet 10 mg PO DAILY #90 tab 02/06/21 verapamil 80 mg tablet 80 mg PO BEDTIME #90 tab 02/06/21 zolpidem 10 mg tablet 10 mg PO BEDTIME #30 tab 02/06/21 sulfamethoxazole-trimethoprim 1 tab PO BID 7 Days #14 tab 03/14/21 Allergies Allergy/AdvReac Type Severity Reaction Status Date / Time naproxen [NAPROXEN] Allergy Severe LE EDEMA Verified 03/16/21 11:46 Review of Systems <SAMANTHA Sharma - Last Filed: 03/16/21 14:13> Review of Systems Narrative: General: Denies fever, chills, fatigue, malaise, sweats. Respiratory: Denies dyspnea, cough, wheezing, hemoptysis, sputum. Cardiovascular: Denies chest pain, palpitations, orthopnea, edema. Gastrointestinal: Denies nausea, vomiting, abdominal pain, diarrhea, constipation, melena. : Denies dysuria, frequency, incontinence, hematuria, urinary retention. Musculoskeletal: Denies weakness, joint pain or bony pain. Skin: See HPI Patient History <SAMANTHA Sharma - Last Filed: 03/16/21 14:13> Medical History History of heroin abuse Hypertension Migraines Traumatic brain injury (~2011) Social History Smoking Status: Never smoker substance use type: IV drugs Smoking Status: Never smoker alcohol intake frequency: 0-2 drinks per day Substance Use Type: marijuana, heroin and IV drugs Exam <SAMANTHA Sharma - Last Filed: 03/16/21 14:13> Narrative Exam Narrative: General appearance: well developed, well nourished, in no acute distress. Head: normocephalic, atraumatic, no scalp lesions, non-tender. ENT: Hearing grossly intact. Airway patent. Neck/Thyroid: neck supple, full range of motion, no visible masses or meningeal signs. No JVD, non-tender without lymphadenopathy. Skin: 3 packed wound in right flank, right lateral distal tibia and left lateral proximal tibia. All packing material draining purulent discharge. Right lateral distal I&D site with mild erythema, edematous tissue surrounding the incision site. Left lateral proximal tibia surrounding incision site also has mild erythema and edematous tissue. Heart: no clubbing, no cyanosis, no edema. Lungs: Breathing even and unlabored. No stridor. No accessory muscles used. Able to speak in full sentences. Chest: normal shape and expansion. Abdomen: non-obese, non-distended. Neurologic: alert and oriented. 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 Initial Vital Signs Initial Vital Signs: Vital Signs Pulse Rate 67 03/16/21 11:43 Respiratory Rate 12 03/16/21 11:43 Blood Pressure 139/94 H 03/16/21 11:43 Pulse Oximetry 99 03/16/21 11:43 <Thompson Byrne DO - Last Filed: 03/16/21 17:17> Initial Vital Signs Initial Vital Signs: Vital Signs Pulse Rate 67 03/16/21 11:43 Respiratory Rate 12 03/16/21 11:43 Blood Pressure 139/94 H 03/16/21 11:43 Pulse Oximetry 99 03/16/21 11:43 Scores <MARY BETH SharmaP - Last Filed: 03/16/21 14:13> GCS [place] coma scale eye opening: Spontaneous [place] coma scale verbal response: Orientated [place] coma scale motor response: Obey commands [place] coma scale total score: 15 Course <MARY BETH SharmaP - Last Filed: 03/16/21 14:13> Vital Signs Vital signs: Vital Signs - 8 hr 03/16/21 11:43 03/16/21 13:47 Pulse Rate 67 74 Respiratory Rate 12 16 Blood Pressure 139/94 H Pulse Oximetry 99 99 <Thompson Byrne DO - Last Filed: 03/16/21 17:17> Vital Signs Vital signs: Vital Signs - 8 hr 03/16/21 11:43 03/16/21 13:47 Pulse Rate 67 74 Respiratory Rate 12 16 Blood Pressure 139/94 H Pulse Oximetry 99 99 [facility] - Skin/Abscess/Foreign Bdy <MARY BETH SharmaP - Last Filed: 03/16/21 14:13> Differential Diagnosis Differential diagnosis: Likely abscess of skin or subcutaneous tissue and cellulitis Medical Records Attestation: I reviewed the patient's medical records. [facility] Narrative Medical decision making narrative: This is a 50-year-old male who has history of abscess and heroin and marijuana drug use presents to ED 2 days ago abscess drainage. At that time, for wounds were cleaned and packed packing materials and discharged to home with 2nd course of Septra prescription to continue after 1st course completion. And denies constitutional symptoms. One small packed wound in right proximal lateral tibia closed and no signs of cellulitis. Bilateral leg wounds slight cellulitis appearance with tenderness, swelling, and erythema. Three wounds were repacked after these are irrigated with plain packing materials. Patient advised to continue Septra b.i.d. course. Advised to follow up with Dr. Moses for wound recheck. Patient informed he is able to shower with outer dressing change. Return precautions discussed and he verbalized understanding in agreement with the treatment plan. Discharge Plan Departure Patient Disposition: Home Clinical Impression: Abscess of multiple sites Instructions: DI for Skin Abscess Activity Restrictions/Additional Instructions: You have been diagnosed with [pre-existing skin abscess and I and D procedure. You were seen today with packing wound dressing change and wound recheck. Wounds appear to be improving. Continue with antibiotic medication. Change outer dressing as needed. You could take shower.]. What to do: *Take your medications as directed. *Follow up with your primary care provider in 2-3 days, call for an appointment and wound recheck. Let them know you were seen in the ED and that we asked you to be seen in follow up. *Return to ED if you have any new, worsening, or concerning symptoms, such as [increasing redness, warmth, pain, fever, chills, purulent discharge, chest pain, breathing difficulty, unable to tolerate fluids or any acute concerns]. Prescriptions: No Action clonazepam 2 mg tablet See Rx Instructions PO BID Qty: 90 RF: 0 zolpidem 10 mg tablet 10 mg PO BEDTIME Qty: 30 RF: 0 verapamil 80 mg tablet 80 mg PO BEDTIME Qty: 90 RF: 0 lisinopril 10 mg tablet 10 mg PO DAILY Qty: 90 RF: 0 dextroamphetamine-amphetamine 15 mg tablet See Rx Instructions .ROUTE .COMPLEX Qty: 60 RF: 0 buprenorphine-naloxone [Suboxone] 8-2 mg film 2 film BUCCAL Q24H RF: 0 Mavyret 100-40 mg tablet 3 tab PO DAILY RF: 0 sumatriptan succinate 50 mg tablet 50 mg PO Q2H PRN (Reason: migraine headache) Qty: 14 RF: 5 sulfamethoxazole-trimethoprim 800-160 mg tablet 1 tab PO BID 7 Days Qty: 14 RF: 0 Referrals: Niraj Moses MD [Primary Care Provider] - <Thompson Byrne DO - Last Filed: 03/16/21 17:17> Cosign ED Attending Cosignature Attestation: I was immediately available in the department for consultation. This documentation has been reviewed and I agree with assessment and plan. Supervised by Thompson Byrne DO
[2021-03-16 13:47] VITALS: PULSE 74; RESP 16; O2SAT 99
== END 2021-03-16 13:49 | disposition home or self-care (01) ==
PROVIDERS: Emergency Provider Nurse Practitioner Family; Family Provider Student in an Organized Health Care Education/Training Program; PCP Student in an Organized Health Care Education/Training Program
DX: L02.415 Cutaneous abscess of right lower limb (principal)
CPT/HCPCS: 99281

== ENCOUNTER 2021-03-28 11:28 | Emergency (ER) | payer MEDICARE, MEDICAID, SELFPAY ==
[2021-03-28 11:31] VITALS: BP 142/81; PULSE 85; RESP 15; TEMP 36.9; O2SAT 100; BMI 28.7
== END 2021-03-28 12:39 | disposition left against medical advice (07) ==
PROVIDERS: Emergency Provider Emergency Medicine; Family Provider Student in an Organized Health Care Education/Training Program
CPT/HCPCS: 99281

== ENCOUNTER 2021-04-14 13:19 | Emergency (ER) | payer MEDICARE, MEDICAID, SELFPAY ==
[2021-04-14 13:28] VITALS: BP 158/99; PULSE 80; RESP 16; TEMP 37.1; O2SAT 100; BMI 28.7
--- NOTE | 2021-04-14 13:34 | ED.GENADULT ---
HPI - General Adult General Chief complaint: Dental/Oral Stated complaint: SWELLING OF JAW Time Seen by Provider: 04/14/21 13:27 Source: patient Mode of arrival: Ambulatory Limitations: no limitations History of Present Illness HPI narrative: Patient is a 50-year-old male who states he was sent over from the clinic for evaluation of right lower jaw swelling. He states that he was sent here because there was an infection that needed drained. He states that the dental department at the clinic did not think that they were ?going to get me numb ?and that is why he was sent here. He is currently on antibiotics and has been on antibiotics for the past several days. He states that he is scheduled tomorrow to have the tooth extracted. Related Data Home Medications Medication Instructions Recorded Confirmed buprenorphine 8 mg-naloxone 2 mg 2 film BUCCAL Q24H each 07/02/20 03/28/21 sublingual film glecaprevir 100 mg-pibrentasvir 40 3 tab PO DAILY 07/02/20 07/02/20 mg tablet Previous Rx's Medication Instructions Recorded sumatriptan succinate 50 mg tablet 50 mg PO Q2H PRN #14 tab 07/02/20 lisinopril 10 mg tablet 10 mg PO DAILY #90 tab 02/06/21 verapamil 80 mg tablet 80 mg PO BEDTIME #90 tab 02/06/21 clonazepam 2 mg tablet See Rx Instructions PO BID #60 tab 04/01/21 dextroamphetamine-amphetamine 15 See Rx Instructions .ROUTE 04/01/21 mg tablet .COMPLEX #40 tab zolpidem 10 mg tablet 10 mg PO BEDTIME #20 tab 04/01/21 Allergies Allergy/AdvReac Type Severity Reaction Status Date / Time naproxen [NAPROXEN] Allergy Severe LE EDEMA Verified 03/28/21 11:33 Review of Systems Constitutional Constitutional: Denies fever(s) ENT Comments: Swelling right-sided jaw Cardiovascular Cardiovascular: Denies dyspnea Respiratory Respiratory: Denies dyspnea Integumentary/Breasts Skin/Breast: Denies rash Neurologic Neurologic: Denies behavioral changes Psychiatric Psychiatric: Denies behavioral changes Hematologic/Lymphatic On Anticoagulants: No Allergic/Immunologic Allergic/Immunologic: Reports system reviewed and no additional complaints, except as documented Patient History Medical History History of heroin abuse Hypertension Migraines Traumatic brain injury (~2011) Social History Smoking Status: Never smoker substance use type: IV drugs Smoking Status: Never smoker alcohol intake frequency: holidays/special occasions only Substance Use Type: former substance user, marijuana and IV drugs Exam Initial Vital Signs Initial Vital Signs: Vital Signs Temperature 98.8 F 04/14/21 13:28 Pulse Rate 80 04/14/21 13:28 Respiratory Rate 16 04/14/21 13:28 Blood Pressure 158/99 H 04/14/21 13:28 Pulse Oximetry 100 04/14/21 13:28 Const General: cooperative and comfortable Limitations: mental status not altered HENMT Head: normal to inspection and normocephalic Nose: external nose normal Face and sinus: edema (Right mandibular region) Mouth: lip normal, tongue normal, salivary ducts normal and oropharynx normal Teeth and gingiva: poor dentition Throat: posterior oropharynx normal Neck Lymphatic: No lymphadenopathy Skin Lesions: no lesions Rashes: no rashes Extrem General: capillary refill normal Psych Appearance: grossly normal and well kempt Procedures Abscess I/D I&D #1: Site: other (Jaw/dental) Side (if applicable): right Local Anesthetic: lidocaine 1% Amount of anesthesia used (mL): 2 Technique: incised with #11 blade Irrigation: No Packing used?: none Course Orders Ordered: Discontinued Medications Lidocaine HCl (Lidocaine 1% (Pf)) 2 ml INJ NOW ONE Stop: 04/14/21 13:35 Last Admin: 04/14/21 13:40 Dose: 2 ml Documented by: NUVIA Vital Signs Vital signs: Vital Signs - 8 hr 04/14/21 13:28 Temperature 98.8 F Pulse Rate 80 Respiratory Rate 16 Blood Pressure 158/99 H Pulse Oximetry 100 Medical Decision Making MDM Narrative Medical decision making narrative: Patient does have a physical exam that is consistent with a dental abscess. He is currently on antibiotics. Attempted to drain it area of fluctuance on his right side mucosa however there was only blood returned. There is no airway compromise. Informed patient that unfortunately there is not more we can offer him out of the emergency department and that he does need to see a dentist for definitive treatment. Informed the he should continue all of his antibiotics. He has me to refill all his medications but I did inform him that he needed to make contact with his primary doctor for this as he is on controlled substances. Offered social work consultation but patient declined. He was given return precautions. Discharge Plan Departure Patient Disposition: Home Clinical Impression: Dental abscess Instructions: Tooth Abscess Activity Restrictions/Additional Instructions: I recommend that you walk over to your primary doctor's office after discharge from the emergency department to schedule a follow-up visit so that you can have all of your medications refilled. Keep your appointment with a dentist tomorrow. Continue your antibiotics. Prescriptions: No Action verapamil 80 mg tablet 80 mg PO BEDTIME Qty: 90 RF: 0 lisinopril 10 mg tablet 10 mg PO DAILY Qty: 90 RF: 0 zolpidem 10 mg tablet 10 mg PO BEDTIME Qty: 20 RF: 0 dextroamphetamine-amphetamine 15 mg tablet See Rx Instructions .ROUTE .COMPLEX Qty: 40 RF: 0 clonazepam 2 mg tablet See Rx Instructions PO BID Qty: 60 RF: 0 buprenorphine-naloxone [Suboxone] 8-2 mg film 2 film BUCCAL Q24H RF: 0 Mavyret 100-40 mg tablet 3 tab PO DAILY RF: 0 sumatriptan succinate 50 mg tablet 50 mg PO Q2H PRN (Reason: migraine headache) Qty: 14 RF: 5
[2021-04-14] MEDS: LIDOCAINE 1% (PF) 2 ML INJ (13:40)
== END 2021-04-14 14:17 | disposition home or self-care (01) ==
PROVIDERS: Emergency Provider Emergency Medicine; Family Provider Student in an Organized Health Care Education/Training Program
DX: K04.7 Periapical abscess without sinus (principal)
CPT/HCPCS: 10060; 99283

== ENCOUNTER 2021-07-31 17:26 | Emergency (ER) | payer MEDICARE, MEDICAID, SELFPAY ==
[2021-07-31] VITALS (72 sets, daily range): BP systolic 67–185; BP diastolic 49–102; PULSE 59–95; RESP 1–32; TEMP 36–37.2; O2SAT 84–100
--- NOTE | 2021-07-31 17:26 | DI.RAD.S_ITS ---
PROCEDURE: XR CHEST 1V INDICATIONS: ET TUBE AND NG TUBE PLACEMENT; SOB, aspiration TECHNIQUE: One view of the chest was acquired. COMPARISON: [facility], CR, XR CHEST 2V, 08/23/2019, 11:48. FINDINGS: Surgical changes and devices: There is an endotracheal tube with the tip approximately 0.8 cm from the [place]ia. A nasogastric tube extends into the stomach. Lungs and pleura: There are confluent bilateral airspace opacities with a perihilar and upper lobe predominance. No pleural effusions or definite pneumothorax. Mediastinum: Mediastinal contours appear unchanged. Heart size is normal. Bones and chest wall: No suspicious bony lesions. Overlying soft tissues appear unremarkable. IMPRESSION: 1. Endotracheal tube tip approximately 0.8 cm from the asia. Recommend withdrawal by approximately 3 cm. Findings discussed with Jhonny Savage on 07/31/2021 at 6:40 p.m.. 2. Confluent bilateral airspace opacities with a perihilar and upper lobe predominance. The findings are nonspecific and may represent pneumonia, pulmonary edema, aspiration, or hemorrhage among other etiologies. Dictated by: Keegan Squires M.D. on 07/31/2021 at 18:37 Approved by: Keegan Squires M.D. on 07/31/2021 at 18:40
[2021-07-31] MEDS: ONDANSETRON 4 MG/2 ML INJ IV (17:39)
[2021-07-31] MEDS: ETOMIDATE 2 MG/ML 10 ML VIAL 20 MG IV (17:40)
[2021-07-31] MEDS: SUCCINYLCHOLINE 100 MG/5 ML INJ 125 MG IV (17:41)
[2021-07-31] MEDS: propofoL 200 MG/20 ML VIAL 100 MG IV (17:50)
[2021-07-31 17:55] LABS: COVID19 -Nasal RAPID Negative (Negative)
[2021-07-31 17:59] LABS: Add Manual Diff / Slide Review NO; Basophils Absolute Auto 0 /uL (0-100); Basophils Percent Auto 0.4 % (0-2); Eosinophils Absolute Auto 200 /uL (0-450); Eosinophils Percent Auto 1.9 % (2-4); Hematocrit 45.3 % (41-53); Hemoglobin 14.9 g/dL (13.5-17.5); Lymphocytes Absolute Auto 2700 /uL (1100-4500); Lymphocytes Percent Auto 33.3 % (25-40); Mean Corpuscular Hemoglobin 29.1 PG (26-34); Mean Corpuscular Volume 88.2 fL (80-100); Monocytes Absolute Auto 400 /uL (0-900); Monocytes Percent Auto 5.3 % (3-14); Neutrophils Absolute Auto 4900 /uL (1500-7000); Neutrophils Percent Auto 59.1 % (50-75); Platelet Count 306 X10^3/uL (150-400); Red Blood Cell Count 5.13 X10^6/uL (4.5-5.9); Red Cell Distribution Width 13.9 % (11.6-14.8); White Blood Cell Count 8.2 X10^3/uL (4.5-11.0)
[2021-07-31 18:00] LABS: Alanine Aminotransferase 21 IU/L (<50); Albumin 4.6 g/dL (3.5-5.0); Albumin Globulin Ratio 1.2 (1.0-2.8); Alkaline Phosphatase 95 U/L (38-126); Ammonia (NH3) 37 umol/L (9-30); Aspartate Aminotransferase 41 IU/L (17-59); BUN Creatinine Ratio 17.1 (6-22); Bilirubin Total 0.3 mg/dL (0.2-1.3); Blood Urea Nitrogen 21 mg/dL (9-20); Calcium 9.1 mg/dL (8.4-10.2); Carbon Dioxide 27 mmol/L (22-32); Chloride 104 mmol/L (98-107); Creatine Kinase 324 U/L (55-170); Estimated Glomerular Filt Rate > 60.0 mL/min (>60); Globulin 3.7 g/dL (1.7-4.1); Glucose 149 mg/dL (70-100); HEMOLYSIS 39 (0-50); Lipase 151 U/L (23-300); Potassium 4.2 mmol/L (3.4-5.1); Sodium 141 mmol/L (137-145); Total Protein 8.3 g/dL (6.3-8.2)
--- NOTE | 2021-07-31 18:05 | ED.GENADULT ---
HPI - General Adult <Nicko Steward DO - Last Filed: 08/05/21 18:06> General Chief complaint: Toxicology Problem Stated complaint: Overdose Time Seen by Provider: 07/31/21 17:27 Source: family (Mother) and EMS Mode of arrival: EMS History of Present Illness HPI narrative: Patient is a 50-year-old male. History of a traumatic brain injury. Has also had history of IV drug abuse. Was brought in by EMS for what was initially stated as a overdose. Patient has received 6 mg of Narcan prior to arrival. Received for intranasal and 2 mg interosseous. A left IO was placed. Patient is been vomiting. Initially had very little information regarding the circumstances that led up to the patient's presentation here. His mother ventrally arrived to the emergency department. She states that at approximately 1545 hours she called her son. She was waiting in line for the area in order to arrive home. She states that she arrived home approximately 45 minutes later. She cannot find her son. She went into the bathroom because during her phone conversation with him he stated that he was going to take a shower. She found him lying on the ground. He had vomited. He was gurgling. Was not responsive. She contacted EMS. She stated that there was drug paraphernalia around him. She is unsure as to whether not he fell. Patient unable to provide any HPI. Related Data Home Medications Medication Instructions Recorded Confirmed buprenorphine 8 mg-naloxone 2 mg 2 film BUCCAL Q24H each 07/02/20 07/31/21 sublingual film (Suboxone) dextroamphetamine-amphetamine 15 15 mg PO BID 07/31/21 07/31/21 mg tablet Previous Rx's Medication Instructions Recorded lisinopril 10 mg tablet 10 mg PO DAILY #90 tab 02/06/21 verapamil 80 mg tablet 80 mg PO BEDTIME #90 tab 02/06/21 clonazepam 2 mg tablet See Rx Instructions PO BID #60 tab 04/01/21 zolpidem 10 mg tablet 10 mg PO BEDTIME #20 tab 04/01/21 Allergies Allergy/AdvReac Type Severity Reaction Status Date / Time naproxen [NAPROXEN] Allergy Severe LE EDEMA Verified 07/31/21 19:51 Review of Systems <DO Sandra Sen Last Filed: 08/05/21 18:06> Review of Systems ROS Unobtainable: Unobtainable due to medical condition Patient History <Nicko Steward DO - Last Filed: 08/05/21 18:06> Medical History (Updated 07/31/21 @ 22:26 by Breana Patrick RN) Hepatitis C History of heroin abuse Hypertension Migraines Traumatic brain injury (~2011) Social History Smoking Status: Never smoker substance use type: IV drugs Smoking Status: Never smoker alcohol intake frequency: holidays/special occasions only Substance Use Type: former substance user, marijuana and IV drugs Exam <Nicko Steward DO - Last Filed: 08/05/21 18:06> Initial Vital Signs Initial Vital Signs: Vital Signs Temperature 97.1 F L 07/31/21 17:30 Const General: acute distress and disheveled HENMT Head: normal to inspection and normocephalic Eyes Pupils: PERRL and pupil size bilaterally 6 Neck Neck: normal visual inspection Chest Chest: No crepitus Resp Effort & Inspection: labored, respiratory distress and tachypneic Auscultation: diminished lung sounds, rales and rhonchi Cardio Rate: regular rate Rhythm: regular rhythm Heart Sounds: no murmurs GI Inspection: normal to inspection and non-distended Palpation: soft and No guarding External: normal external exam Skin General: no rashes or lesions noted Neuro Other: Patient did open his eyes to commands. Was making sounds. Did wiggle his toes when asked. Patient did move all 4 extremities spontaneously. Extrem General: normal to inspection, capillary refill normal and No edema Psych Appearance: disheveled <Chelsey Chino MD - Last Filed: 08/01/21 02:48> Initial Vital Signs Initial Vital Signs: Vital Signs Temperature 97.1 F L 07/31/21 17:30 Procedures <Nicko Steward DO - Last Filed: 08/05/21 18:06> Intubation Time out performed: Yes sedative: Etomidate Mg Given: 20 paralytic: Succinylcholine Mg Given: 125 Laryngoscope: fiber optic video scope ET Tube Size: 8 ET Tube Uncuffed: No Tube Secured Depth (cm): 24 Tube Secured Location: teeth Tube Placement Confirmation: Visualized tube passing through cords, Equal breath sounds bilaterally, Confirmation by capnometry and Chest Xray Patient Tolerated Procedure: No complications Intubation Complications: none Scores <Nicko Steward DO - Last Filed: 08/05/21 18:06> GCS [place] coma scale eye opening: To sound [place] coma scale verbal response: Sounds [place] coma scale motor response: Obey commands Fel[place] coma scale total score: 11 <Chelsey Chino MD - Last Filed: 08/01/21 02:48> GCS [place] coma scale total score: 11 Course <Nicko Steward DO - Last Filed: 08/05/21 18:06> Orders Ordered: Discontinued Medications Etomidate (Etomidate 2 Mg/Ml 10 Ml Vial) 20 mg IV NOW ONE Stop: 07/31/21 17:38 Last Admin: 07/31/21 17:40 Dose: 20 mg Documented by: EDUARDO Dexmedetomidine HCl 400 mcg/ (Sodium Chloride) 96 mls @ 4.93 mls/hr IV TITRATE REJI; Protocol Last Titration: 07/31/21 21:00 Dose: 0 mcg/kg/hr, 0 mls/hr Documented by: Titration: 07/31/21 19:22 Dose: 0.7 mcg/kg/hr, 17.254 mls/hr Documented by: Titration: 07/31/21 19:07 Dose: 0.6 mcg/kg/hr, 14.789 mls/hr Documented by: Titration: 07/31/21 18:20 Dose: 0.43 mcg/kg/hr, 10.5 mls/hr Documented by: Admin: 07/31/21 18:09 Dose: 6.37 mcg/kg/hr, 157.008 mls/hr Documented by: EDUARDO Propofol (Propofol) 1,000 mg in 100 mls @ 6.162 mls/hr IV TITRATE REJI; Protocol Last Titration: 07/31/21 23:00 Dose: 10 mcg/kg/min, 6.162 mls/hr Documented by: Titration: 07/31/21 21:53 Dose: 10 mcg/kg/min, 6.162 mls/hr Documented by: Titration: 07/31/21 21:01 Dose: 10 mcg/kg/min, 6.162 mls/hr Documented by: Titration: 07/31/21 20:53 Dose: 0 mcg/kg/min, 0 mls/hr Documented by: Titration: 07/31/21 18:16 Dose: 0 mcg/kg/min, 0 mls/hr Documented by: Admin: 07/31/21 18:08 Dose: 10 mcg/kg/min, 6.162 mls/hr Documented by: EDUARDO Sodium Chloride (Normal Saline 0.9%) 1,000 mls @ 50 mls/hr IV BOLUS ONE Stop: 08/01/21 14:01 Last Infusion: 07/31/21 20:30 Dose: 0 mls/hr Documented by: Infusion: 07/31/21 19:07 Dose: 250 mls/hr Documented by: Infusion: 07/31/21 18:31 Dose: 999 mls/hr Documented by: Infusion: 07/31/21 18:24 Dose: 100 mls/hr Documented by: Admin: 07/31/21 18:07 Dose: 50 mls/hr Documented by: EDUARDO Norepinephrine Bitartrate 4 mg (/ Dextrose) 254 mls @ 30.48 mls/hr IV TITRATE REJI; Protocol Last Titration: 07/31/21 23:21 Dose: 8 mcg/min, 30.48 mls/hr Documented by: Titration: 07/31/21 21:01 Dose: 8 mcg/min, 30.48 mls/hr Documented by: Titration: 07/31/21 19:22 Dose: 4 mcg/min, 15.24 mls/hr Documented by: Titration: 07/31/21 19:00 Dose: 8 mcg/min, 30.48 mls/hr Documented by: Titration: 07/31/21 18:40 Dose: 0 mcg/min, 0 mls/hr Documented by: Admin: 07/31/21 18:39 Dose: 8 mcg/min, 30.48 mls/hr Documented by: EDUARDO Sodium Chloride (Normal Saline 0.9%) 1,000 mls @ 1,000 mls/hr IV BOLUS ONE Stop: 07/31/21 19:40 Last Infusion: 07/31/21 19:35 Dose: 0 mls/hr Documented by: Admin: 07/31/21 18:41 Dose: 1,000 mls/hr Documented by: EDUARDO Midazolam HCl 50 mg/ Dextrose 250 mls @ 10.27 mls/hr IV TITRATE REJI; Protocol Last Titration: 07/31/21 23:21 Dose: 0.03 mg/kg/hr, 12.838 mls/hr Documented by: Titration: 07/31/21 21:23 Dose: 0.025 mg/kg/hr, 12.838 mls/hr Documented by: Admin: 07/31/21 19:31 Dose: 0.02 mg/kg/hr, 10.27 mls/hr Documented by: EDUARDO Sodium Chloride (Normal Saline 0.9%) 1,000 mls @ 200 mls/hr IV BOLUS ONE Stop: 08/01/21 01:23 Last Infusion: 07/31/21 23:22 Dose: 200 mls/hr Documented by: Admin: 07/31/21 20:27 Dose: 200 mls/hr Documented by: EDUARDO Sodium Chloride (Normal Saline 0.9%) 1,000 mls @ 1,000 mls/hr IV BOLUS ONE Stop: 07/31/21 21:23 Last Infusion: 07/31/21 21:44 Dose: 0 mls/hr Documented by: Admin: 07/31/21 20:27 Dose: 1,000 mls/hr Documented by: EDUARDO Vancomycin HCl/Dextrose (Vancomycin) 1,500 mg in 300 mls @ 200 mls/hr IV NOW ONE Stop: 07/31/21 22:34 Last Infusion: 07/31/21 23:22 Dose: 0 mls/hr Documented by: Admin: 07/31/21 21:18 Dose: 200 mls/hr Documented by: EDUARDO Fentanyl 1,000 mcg/ Dextrose 250 mls @ 17.973 mls/hr IV TITRATE REJI; Protocol Last Titration: 07/31/21 23:22 Dose: 0.7 mcg/kg/hr, 17.973 mls/hr Documented by: Admin: 07/31/21 21:25 Dose: 0.7 mcg/kg/hr, 17.973 mls/hr Documented by: EDUARDO Piperacillin Sod/Tazobactam (Sod 4.5 gm/ Sodium Chloride) 100 mls @ 200 mls/hr IV NOW ONE Stop: 07/31/21 21:06 Last Infusion: 07/31/21 21:52 Dose: 0 mls/hr Documented by: Admin: 07/31/21 21:17 Dose: 200 mls/hr Documented by: EDUARDO Midazolam HCl (Midazolam 2 Mg/2 Ml Vial) 2 mg IV NOW ONE Stop: 07/31/21 19:13 Last Admin: 07/31/21 19:18 Dose: 2 mg Documented by: EDUARDO Ondansetron HCl (Ondansetron 4 Mg/2 Ml Inj) 4 mg IV NOW ONE Stop: 07/31/21 17:32 Last Admin: 07/31/21 17:39 Dose: 4 mg Documented by: EDUARDO Propofol (Propofol 200 Mg/20 Ml Vial) 100 mg IV NOW ONE Stop: 07/31/21 17:50 Last Admin: 07/31/21 17:50 Dose: 100 mg Documented by: EDUARDO Succinylcholine Chloride (Succinylcholine 100 Mg/5 Ml Inj) 125 mg IV NOW ONE Stop: 07/31/21 17:39 Last Admin: 07/31/21 17:41 Dose: 125 mg Documented by: EDUARDO Vital Signs Vital signs: Vital Signs - 8 hr 07/31/21 18:50 07/31/21 18:55 07/31/21 19:00 Temperature 97.9 F 97.9 F 97.7 F Pulse Rate 68 68 67 Respiratory Rate 27 H 25 H 21 Blood Pressure 87/57 L 84/54 L 84/55 L Pulse Oximetry 98 98 98 07/31/21 19:05 07/31/21 19:10 07/31/21 19:14 Temperature 97.3 F L 97.3 F L 97.2 F L Pulse Rate 68 59 L 72 Respiratory Rate 29 H 23 23 Blood Pressure 85/57 L 185/102 H Pulse Oximetry 92 87 L 88 L 07/31/21 19:15 07/31/21 19:19 07/31/21 19:20 Temperature 97.2 F L 97.2 F L 97.2 F L Pulse Rate 66 63 61 Respiratory Rate 27 H 30 H 31 H Blood Pressure 173/98 H 170/98 H Pulse Oximetry 89 L 94 94 07/31/21 19:25 07/31/21 19:30 07/31/21 19:35 Temperature 97.0 F L 97.0 F L 97.0 F L Pulse Rate 71 70 71 Respiratory Rate 32 H 28 H 30 H Blood Pressure 133/75 128/77 Pulse Oximetry 96 95 95 07/31/21 19:40 07/31/21 19:45 07/31/21 19:50 Temperature 97.0 F L 97.0 F L 97.0 F L Pulse Rate 72 73 74 Respiratory Rate 26 H 28 H 28 H Blood Pressure 123/78 123/80 116/78 Pulse Oximetry 95 96 95 07/31/21 19:55 07/31/21 19:56 07/31/21 20:00 Temperature 97.0 F L 97.0 F L 96.8 F L Pulse Rate 73 74 73 Respiratory Rate 25 H 26 H Blood Pressure 118/70 136/80 Pulse Oximetry 95 95 95 07/31/21 20:05 07/31/21 20:10 07/31/21 20:15 Temperature 97.0 F L 97.2 F L Pulse Rate 72 73 74 Respiratory Rate 27 H 29 H Blood Pressure 129/79 110/68 105/68 Pulse Oximetry 94 94 92 07/31/21 20:20 07/31/21 20:25 07/31/21 20:30 Temperature 97.2 F L 97.3 F L 97.3 F L Pulse Rate 75 76 77 Respiratory Rate 32 H 32 H 30 H Blood Pressure 107/72 104/69 102/66 Pulse Oximetry 91 91 90 L 07/31/21 20:35 07/31/21 20:40 07/31/21 20:41 Temperature 97.5 F L 97.5 F L 97.5 F L Pulse Rate 77 77 77 Respiratory Rate 31 H 32 H 32 H Blood Pressure 104/66 101/65 Pulse Oximetry 90 L 89 L 89 L 07/31/21 20:45 07/31/21 20:50 07/31/21 20:55 Temperature 97.5 F L 97.7 F 97.7 F Pulse Rate 77 77 76 Respiratory Rate 32 H 32 H 30 H Blood Pressure 99/62 98/59 L 98/57 L Pulse Oximetry 88 L 89 L 87 L 07/31/21 21:00 07/31/21 21:05 07/31/21 21:10 Temperature 97.7 F 97.9 F 97.9 F Pulse Rate 76 77 79 Respiratory Rate 29 H 28 H 28 H Blood Pressure 97/55 L 109/62 124/67 Pulse Oximetry 84 L 86 L 87 L 07/31/21 21:15 07/31/21 21:20 07/31/21 21:25 Temperature 97.9 F 97.9 F 97.9 F Pulse Rate 80 80 81 Respiratory Rate 28 H 27 H 27 H Blood Pressure 121/62 115/61 114/61 Pulse Oximetry 89 L 89 L 90 L 07/31/21 21:30 07/31/21 21:35 07/31/21 21:40 Temperature 97.9 F 98.1 F 98.1 F Pulse Rate 82 82 83 Respiratory Rate 26 H 25 H 25 H Blood Pressure 109/58 L 99/55 L 103/56 L Pulse Oximetry 88 L 87 L 87 L 07/31/21 21:45 07/31/21 21:50 07/31/21 21:55 Temperature 98.1 F 98.1 F 98.2 F Pulse Rate 83 82 81 Respiratory Rate 25 H 25 H 26 H Blood Pressure 104/56 L 104/57 L 100/55 L Pulse Oximetry 87 L 88 L 91 07/31/21 22:00 07/31/21 22:05 07/31/21 22:10 Temperature 98.2 F 98.2 F 98.4 F Pulse Rate 80 80 80 Respiratory Rate 26 H 25 H 26 H Blood Pressure 97/53 L 101/59 L 96/54 L Pulse Oximetry 91 90 L 86 L 07/31/21 22:15 07/31/21 22:20 07/31/21 22:25 Temperature 98.4 F 98.6 F 98.6 F Pulse Rate 79 79 79 Respiratory Rate 26 H 25 H 25 H Blood Pressure 94/53 L 95/54 L 96/54 L Pulse Oximetry 89 L 90 L 90 L 07/31/21 22:30 07/31/21 22:35 07/31/21 22:40 Temperature 98.6 F 98.8 F 98.8 F Pulse Rate 79 79 79 Respiratory Rate 25 H 25 H 25 H Blood Pressure 93/53 L 92/52 L Pulse Oximetry 90 L 91 90 L 07/31/21 22:45 Temperature 99.0 F Pulse Rate 79 Respiratory Rate 25 H Blood Pressure Pulse Oximetry 91 <Chelsey L Laursen, MD - Last Filed: 08/01/21 02:48> Orders Ordered: Discontinued Medications Etomidate (Etomidate 2 Mg/Ml 10 Ml Vial) 20 mg IV NOW ONE Stop: 07/31/21 17:38 Last Admin: 07/31/21 17:40 Dose: 20 mg Documented by: EDUARDO Dexmedetomidine HCl 400 mcg/ (Sodium Chloride) 96 mls @ 4.93 mls/hr IV TITRATE REJI; Protocol Last Titration: 07/31/21 21:00 Dose: 0 mcg/kg/hr, 0 mls/hr Documented by: Titration: 07/31/21 19:22 Dose: 0.7 mcg/kg/hr, 17.254 mls/hr Documented by: Titration: 07/31/21 19:07 Dose: 0.6 mcg/kg/hr, 14.789 mls/hr Documented by: Titration: 07/31/21 18:20 Dose: 0.43 mcg/kg/hr, 10.5 mls/hr Documented by: Admin: 07/31/21 18:09 Dose: 6.37 mcg/kg/hr, 157.008 mls/hr Documented by: EDUARDO Propofol (Propofol) 1,000 mg in 100 mls @ 6.162 mls/hr IV TITRATE REJI; Protocol Last Titration: 07/31/21 23:00 Dose: 10 mcg/kg/min, 6.162 mls/hr Documented by: Titration: 07/31/21 21:53 Dose: 10 mcg/kg/min, 6.162 mls/hr Documented by: Titration: 07/31/21 21:01 Dose: 10 mcg/kg/min, 6.162 mls/hr Documented by: Titration: 07/31/21 20:53 Dose: 0 mcg/kg/min, 0 mls/hr Documented by: Titration: 07/31/21 18:16 Dose: 0 mcg/kg/min, 0 mls/hr Documented by: Admin: 07/31/21 18:08 Dose: 10 mcg/kg/min, 6.162 mls/hr Documented by: EDUARDO Sodium Chloride (Normal Saline 0.9%) 1,000 mls @ 50 mls/hr IV BOLUS ONE Stop: 08/01/21 14:01 Last Infusion: 07/31/21 20:30 Dose: 0 mls/hr Documented by: Infusion: 07/31/21 19:07 Dose: 250 mls/hr Documented by: Infusion: 07/31/21 18:31 Dose: 999 mls/hr Documented by: Infusion: 07/31/21 18:24 Dose: 100 mls/hr Documented by: Admin: 07/31/21 18:07 Dose: 50 mls/hr Documented by: EDUARDO Norepinephrine Bitartrate 4 mg (/ Dextrose) 254 mls @ 30.48 mls/hr IV TITRATE REJI; Protocol Last Titration: 07/31/21 23:21 Dose: 8 mcg/min, 30.48 mls/hr Documented by: Titration: 07/31/21 21:01 Dose: 8 mcg/min, 30.48 mls/hr Documented by: Titration: 07/31/21 19:22 Dose: 4 mcg/min, 15.24 mls/hr Documented by: Titration: 07/31/21 19:00 Dose: 8 mcg/min, 30.48 mls/hr Documented by: Titration: 07/31/21 18:40 Dose: 0 mcg/min, 0 mls/hr Documented by: Admin: 07/31/21 18:39 Dose: 8 mcg/min, 30.48 mls/hr Documented by: EDUARDO Sodium Chloride (Normal Saline 0.9%) 1,000 mls @ 1,000 mls/hr IV BOLUS ONE Stop: 07/31/21 19:40 Last Infusion: 07/31/21 19:35 Dose: 0 mls/hr Documented by: Admin: 07/31/21 18:41 Dose: 1,000 mls/hr Documented by: EDUARDO Midazolam HCl 50 mg/ Dextrose 250 mls @ 10.27 mls/hr IV TITRATE REJI; Protocol Last Titration: 07/31/21 23:21 Dose: 0.03 mg/kg/hr, 12.838 mls/hr Documented by: Titration: 07/31/21 21:23 Dose: 0.025 mg/kg/hr, 12.838 mls/hr Documented by: Admin: 07/31/21 19:31 Dose: 0.02 mg/kg/hr, 10.27 mls/hr Documented by: EDUARDO Sodium Chloride (Normal Saline 0.9%) 1,000 mls @ 200 mls/hr IV BOLUS ONE Stop: 08/01/21 01:23 Last Infusion: 07/31/21 23:22 Dose: 200 mls/hr Documented by: Admin: 07/31/21 20:27 Dose: 200 mls/hr Documented by: EDUARDO Sodium Chloride (Normal Saline 0.9%) 1,000 mls @ 1,000 mls/hr IV BOLUS ONE Stop: 07/31/21 21:23 Last Infusion: 07/31/21 21:44 Dose: 0 mls/hr Documented by: Admin: 07/31/21 20:27 Dose: 1,000 mls/hr Documented by: EDUARDO Vancomycin HCl/Dextrose (Vancomycin) 1,500 mg in 300 mls @ 200 mls/hr IV NOW ONE Stop: 07/31/21 22:34 Last Infusion: 07/31/21 23:22 Dose: 0 mls/hr Documented by: Admin: 07/31/21 21:18 Dose: 200 mls/hr Documented by: EDUARDO Fentanyl 1,000 mcg/ Dextrose 250 mls @ 17.973 mls/hr IV TITRATE REJI; Protocol Last Titration: 07/31/21 23:22 Dose: 0.7 mcg/kg/hr, 17.973 mls/hr Documented by: Admin: 07/31/21 21:25 Dose: 0.7 mcg/kg/hr, 17.973 mls/hr Documented by: EDUARDO Piperacillin Sod/Tazobactam (Sod 4.5 gm/ Sodium Chloride) 100 mls @ 200 mls/hr IV NOW ONE Stop: 07/31/21 21:06 Last Infusion: 07/31/21 21:52 Dose: 0 mls/hr Documented by: Admin: 07/31/21 21:17 Dose: 200 mls/hr Documented by: EDUARDO Midazolam HCl (Midazolam 2 Mg/2 Ml Vial) 2 mg IV NOW ONE Stop: 07/31/21 19:13 Last Admin: 07/31/21 19:18 Dose: 2 mg Documented by: EDUARDO Ondansetron HCl (Ondansetron 4 Mg/2 Ml Inj) 4 mg IV NOW ONE Stop: 07/31/21 17:32 Last Admin: 07/31/21 17:39 Dose: 4 mg Documented by: EDUARDO Propofol (Propofol 200 Mg/20 Ml Vial) 100 mg IV NOW ONE Stop: 07/31/21 17:50 Last Admin: 07/31/21 17:50 Dose: 100 mg Documented by: EDUARDO Succinylcholine Chloride (Succinylcholine 100 Mg/5 Ml Inj) 125 mg IV NOW ONE Stop: 07/31/21 17:39 Last Admin: 07/31/21 17:41 Dose: 125 mg Documented by: EDUARDO Vital Signs Vital signs: Vital Signs - 8 hr 07/31/21 18:50 07/31/21 18:55 07/31/21 19:00 Temperature 97.9 F 97.9 F 97.7 F Pulse Rate 68 68 67 Respiratory Rate 27 H 25 H 21 Blood Pressure 87/57 L 84/54 L 84/55 L Pulse Oximetry 98 98 98 07/31/21 19:05 07/31/21 19:10 07/31/21 19:14 Temperature 97.3 F L 97.3 F L 97.2 F L Pulse Rate 68 59 L 72 Respiratory Rate 29 H 23 23 Blood Pressure 85/57 L 185/102 H Pulse Oximetry 92 87 L 88 L 07/31/21 19:15 07/31/21 19:19 07/31/21 19:20 Temperature 97.2 F L 97.2 F L 97.2 F L Pulse Rate 66 63 61 Respiratory Rate 27 H 30 H 31 H Blood Pressure 173/98 H 170/98 H Pulse Oximetry 89 L 94 94 07/31/21 19:25 07/31/21 19:30 07/31/21 19:35 Temperature 97.0 F L 97.0 F L 97.0 F L Pulse Rate 71 70 71 Respiratory Rate 32 H 28 H 30 H Blood Pressure 133/75 128/77 Pulse Oximetry 96 95 95 07/31/21 19:40 07/31/21 19:45 07/31/21 19:50 Temperature 97.0 F L 97.0 F L 97.0 F L Pulse Rate 72 73 74 Respiratory Rate 26 H 28 H 28 H Blood Pressure 123/78 123/80 116/78 Pulse Oximetry 95 96 95 07/31/21 19:55 07/31/21 19:56 07/31/21 20:00 Temperature 97.0 F L 97.0 F L 96.8 F L Pulse Rate 73 74 73 Respiratory Rate 25 H 26 H Blood Pressure 118/70 136/80 Pulse Oximetry 95 95 95 07/31/21 20:05 07/31/21 20:10 07/31/21 20:15 Temperature 97.0 F L 97.2 F L Pulse Rate 72 73 74 Respiratory Rate 27 H 29 H Blood Pressure 129/79 110/68 105/68 Pulse Oximetry 94 94 92 07/31/21 20:20 07/31/21 20:25 07/31/21 20:30 Temperature 97.2 F L 97.3 F L 97.3 F L Pulse Rate 75 76 77 Respiratory Rate 32 H 32 H 30 H Blood Pressure 107/72 104/69 102/66 Pulse Oximetry 91 91 90 L 07/31/21 20:35 07/31/21 20:40 07/31/21 20:41 Temperature 97.5 F L 97.5 F L 97.5 F L Pulse Rate 77 77 77 Respiratory Rate 31 H 32 H 32 H Blood Pressure 104/66 101/65 Pulse Oximetry 90 L 89 L 89 L 07/31/21 20:45 07/31/21 20:50 07/31/21 20:55 Temperature 97.5 F L 97.7 F 97.7 F Pulse Rate 77 77 76 Respiratory Rate 32 H 32 H 30 H Blood Pressure 99/62 98/59 L 98/57 L Pulse Oximetry 88 L 89 L 87 L 07/31/21 21:00 07/31/21 21:05 07/31/21 21:10 Temperature 97.7 F 97.9 F 97.9 F Pulse Rate 76 77 79 Respiratory Rate 29 H 28 H 28 H Blood Pressure 97/55 L 109/62 124/67 Pulse Oximetry 84 L 86 L 87 L 07/31/21 21:15 07/31/21 21:20 07/31/21 21:25 Temperature 97.9 F 97.9 F 97.9 F Pulse Rate 80 80 81 Respiratory Rate 28 H 27 H 27 H Blood Pressure 121/62 115/61 114/61 Pulse Oximetry 89 L 89 L 90 L 07/31/21 21:30 07/31/21 21:35 07/31/21 21:40 Temperature 97.9 F 98.1 F 98.1 F Pulse Rate 82 82 83 Respiratory Rate 26 H 25 H 25 H Blood Pressure 109/58 L 99/55 L 103/56 L Pulse Oximetry 88 L 87 L 87 L 07/31/21 21:45 07/31/21 21:50 07/31/21 21:55 Temperature 98.1 F 98.1 F 98.2 F Pulse Rate 83 82 81 Respiratory Rate 25 H 25 H 26 H Blood Pressure 104/56 L 104/57 L 100/55 L Pulse Oximetry 87 L 88 L 91 07/31/21 22:00 07/31/21 22:05 07/31/21 22:10 Temperature 98.2 F 98.2 F 98.4 F Pulse Rate 80 80 80 Respiratory Rate 26 H 25 H 26 H Blood Pressure 97/53 L 101/59 L 96/54 L Pulse Oximetry 91 90 L 86 L 07/31/21 22:15 07/31/21 22:20 07/31/21 22:25 Temperature 98.4 F 98.6 F 98.6 F Pulse Rate 79 79 79 Respiratory Rate 26 H 25 H 25 H Blood Pressure 94/53 L 95/54 L 96/54 L Pulse Oximetry 89 L 90 L 90 L 07/31/21 22:30 07/31/21 22:35 07/31/21 22:40 Temperature 98.6 F 98.8 F 98.8 F Pulse Rate 79 79 79 Respiratory Rate 25 H 25 H 25 H Blood Pressure 93/53 L 92/52 L Pulse Oximetry 90 L 91 90 L 07/31/21 22:45 Temperature 99.0 F Pulse Rate 79 Respiratory Rate 25 H Blood Pressure Pulse Oximetry 91 Medical Decision Making <Nicko Steward, DO - Last Filed: 08/05/21 18:06> Medical Records Medical records reviewed: Yes I reviewed the patient's medical records. Lab Data Lab results reviewed: Yes I reviewed the patient's lab results. Result diagrams: 07/31/21 17:35 07/31/21 17:35 Labs: Lab Results 07/31/21 07/31/21 07/31/21 Range/Units 17:27 17:35 17:35 WBC 8.2 (4.5-11.0) X10^3/uL RBC 5.13 (4.5-5.9) X10^6/uL Hgb 14.9 (13.5-17.5) g/dL Hct 45.3 (41-53) % MCV 88.2 (80-100) fL MCH 29.1 (26-34) PG MCHC 33.0 (30-36) % RDW 13.9 (11.6-14.8) % Plt Count 306 (150-400) X10^3/uL Neut % (Auto) 59.1 (50-75) % Lymph % (Auto) 33.3 (25-40) % [place] % (Auto) 5.3 (3-14) % Eos % (Auto) 1.9 L (2-4) % Baso % (Auto) 0.4 (0-2) % Neut # (Auto) 4900 (0949-3687) /uL Lymph # (Auto) 2700 (2855-6225) /uL [place] # (Auto) 400 (0-900) /uL Eos # (Auto) 200 (0-450) /uL Baso # (Auto) 0 (0-100) /uL PT (10.1-12.7) SECONDS INR (0.9-1.3) APTT (26.4-36.2) SECONDS ABG pH (7.35-7.45) ABG pCO2 (35-45) mmHg ABG pO2 (80-100) mmHg ABG HCO3 (22-26) mmol/L ABG Total CO2 (21-31) mmol/L ABG O2 Saturation (95-100) % ABG Base Excess (-2-2) mmol/L FiO2 Sodium 141 (137-145) mmol/L Potassium 4.2 (3.4-5.1) mmol/L Chloride 104 (98-107) mmol/L Carbon Dioxide 27 (22-32) mmol/L BUN 21 H (9-20) mg/dL Creatinine 1.23 (0.66-1.25) mg/dL Estimated GFR > 60.0 (>60) mL/min BUN/Creatinine Ratio 17.1 (6-22) Glucose 149 H (70-100) mg/dL Lactate (0.7-2.1) mmol/L Calcium 9.1 (8.4-10.2) mg/dL Total Bilirubin 0.3 (0.2-1.3) mg/dL AST 41 (17-59) IU/L ALT 21 (<50) IU/L Alkaline Phosphatase 95 (38-126) U/L Ammonia (9-30) umol/L Total Creatine Kinase 324 H (55-170) U/L CK-MB (CK-2) 3.13 H (<2.37) ng/mL CK-MB (CK-2) Rel Index 1.0 L (1.5-5.0) % Troponin I 0.021 (0.01-0.034) ng/mL NT-Pro-B Natriuret Pep (<125) pg/mL Total Protein 8.3 H (6.3-8.2) g/dL Albumin 4.6 (3.5-5.0) g/dL Globulin 3.7 (1.7-4.1) g/dL Albumin/Globulin Ratio 1.2 (1.0-2.8) Lipase 151 (23-300) U/L TSH (0.47-4.68) uIU/mL Urine Color Urine Appearance Urine pH (4.5-8.0) Ur Specific [place] (1.000-1.035) Urine Protein (Negative) Urine Glucose (UA) (Negative) g/dL Urine Ketones (NEGATIVE) Urine Occult Blood (Negative) Urine Nitrate (Negative) Urine Bilirubin (NEGATIVE) Urine Urobilinogen (0.2) E.U./dL Ur Leukocyte Esterase (NEGATIVE) Urine RBC (0-5/HPF) Urine WBC Urine Bacteria Hyaline Casts (None) Granular Casts (None) Ur Culture Indicated? U Opiates 300ng/mL cut (Negative) Ur Oxycodone Screen (Negative) Urine Methadone Screen (Negative) Acetaminophen (10-30) ug/mL Ur Barbiturates Screen (Negative) U Tricyclic Antidepress (Negative) Ur Phencyclidine Scrn (Negative) Ur Amphetamines Screen (Negative) U Methamphetamines Scrn (Negative) Ur MDMA Scrn (Ecstasy) (Negative) U Benzodiazepines Scrn (Negative) Urine Cocaine Screen (Negative) U Marijuana (THC) Screen (Negative) A. baumannii (PCR) (Not Detect) Samra albicans (PCR) (Not Detect) C. glabrata (PCR) (Not Detect) C. krusei (PCR) (Not Detect) C. parapsilosis (PCR) (Not Detect) C. tropicalis (PCR) (Not Detect) SARS-CoV-2 (PCR) Negative (Negative) Enterobacteriac sp PCR (Not Detect) E. cloacae complex PCR (Not Detect) Enterococcus sp PCR (Not Detect) E. coli (PCR) (Not Detect) H. influenzae (PCR) (Not Detect) Klebsiella oxytoca PCR (Not Detect) Klebsiella pneumoniae (Not Detect) List. monocytogenes PCR (Not Detect) N. meningitidis (PCR) (Not Detect) Proteus species (PCR) (Not Detect) Serratia marcescens PCR (Not Detect) Staphylococcus sp PCR (Not Detect) Staph aureus (PCR) (Not Detect) mecA-Methicil Res Gene (Not Detect) Streptococcus sp PCR (Not Detect) Group A Strep (PCR) (Not Detect) Strep agalactiae (PCR) (Not Detect) Strep pneumoniae (PCR) (Not Detect) P. aeruginosa (PCR) (Not Detect) Wandy/B-Vanco Res Genes (Not Detect) KPC-Carbap Res Gene PCR (Not Detect) 07/31/21 07/31/21 07/31/21 Range/Units 17:35 17:35 17:35 WBC (4.5-11.0) X10^3/uL RBC (4.5-5.9) X10^6/uL Hgb (13.5-17.5) g/dL Hct (41-53) % MCV (80-100) fL MCH (26-34) PG MCHC (30-36) % RDW (11.6-14.8) % Plt Count (150-400) X10^3/uL Neut % (Auto) (50-75) % Lymph % (Auto) (25-40) % [place] % (Auto) (3-14) % Eos % (Auto) (2-4) % Baso % (Auto) (0-2) % Neut # (Auto) (5064-5691) /uL Lymph # (Auto) (6674-3346) /uL [place] # (Auto) (0-900) /uL Eos # (Auto) (0-450) /uL Baso # (Auto) (0-100) /uL PT (10.1-12.7) SECONDS INR (0.9-1.3) APTT (26.4-36.2) SECONDS ABG pH (7.35-7.45) ABG pCO2 (35-45) mmHg ABG pO2 (80-100) mmHg ABG HCO3 (22-26) mmol/L ABG Total CO2 (21-31) mmol/L ABG O2 Saturation (95-100) % ABG Base Excess (-2-2) mmol/L FiO2 Sodium (137-145) mmol/L Potassium (3.4-5.1) mmol/L Chloride (98-107) mmol/L Carbon Dioxide (22-32) mmol/L BUN (9-20) mg/dL Creatinine (0.66-1.25) mg/dL Estimated GFR (>60) mL/min BUN/Creatinine Ratio (6-22) Glucose (70-100) mg/dL Lactate (0.7-2.1) mmol/L Calcium (8.4-10.2) mg/dL Total Bilirubin (0.2-1.3) mg/dL AST (17-59) IU/L ALT (<50) IU/L Alkaline Phosphatase (38-126) U/L Ammonia 37 H (9-30) umol/L Total Creatine Kinase (55-170) U/L CK-MB (CK-2) (<2.37) ng/mL CK-MB (CK-2) Rel Index (1.5-5.0) % Troponin I (0.01-0.034) ng/mL NT-Pro-B Natriuret Pep (<125) pg/mL Total Protein (6.3-8.2) g/dL Albumin (3.5-5.0) g/dL Globulin (1.7-4.1) g/dL Albumin/Globulin Ratio (1.0-2.8) Lipase (23-300) U/L TSH 3.74 (0.47-4.68) uIU/mL Urine Color Urine Appearance Urine pH (4.5-8.0) Ur Specific [place] (1.000-1.035) Urine Protein (Negative) Urine Glucose (UA) (Negative) g/dL Urine Ketones (NEGATIVE) Urine Occult Blood (Negative) Urine Nitrate (Negative) Urine Bilirubin (NEGATIVE) Urine Urobilinogen (0.2) E.U./dL Ur Leukocyte Esterase (NEGATIVE) Urine RBC (0-5/HPF) Urine WBC Urine Bacteria Hyaline Casts (None) Granular Casts (None) Ur Culture Indicated? U Opiates 300ng/mL cut (Negative) Ur Oxycodone Screen (Negative) Urine Methadone Screen (Negative) Acetaminophen < 10 L (10-30) ug/mL Ur Barbiturates Screen (Negative) U Tricyclic Antidepress (Negative) Ur Phencyclidine Scrn (Negative) Ur Amphetamines Screen (Negative) U Methamphetamines Scrn (Negative) Ur MDMA Scrn (Ecstasy) (Negative) U Benzodiazepines Scrn (Negative) Urine Cocaine Screen (Negative) U Marijuana (THC) Screen (Negative) A. baumannii (PCR) (Not Detect) Samra albicans (PCR) (Not Detect) C. glabrata (PCR) (Not Detect) C. krusei (PCR) (Not Detect) C. parapsilosis (PCR) (Not Detect) C. tropicalis (PCR) (Not Detect) SARS-CoV-2 (PCR) (Negative) Enterobacteriac sp PCR (Not Detect) E. cloacae complex PCR (Not Detect) Enterococcus sp PCR (Not Detect) E. coli (PCR) (Not Detect) H. influenzae (PCR) (Not Detect) Klebsiella oxytoca PCR (Not Detect) Klebsiella pneumoniae (Not Detect) List. monocytogenes PCR (Not Detect) N. meningitidis (PCR) (Not Detect) Proteus species (PCR) (Not Detect) Serratia marcescens PCR (Not Detect) Staphylococcus sp PCR (Not Detect) Staph aureus (PCR) (Not Detect) mecA-Methicil Res Gene (Not Detect) Streptococcus sp PCR (Not Detect) Group A Strep (PCR) (Not Detect) Strep agalactiae (PCR) (Not Detect) Strep pneumoniae (PCR) (Not Detect) P. aeruginosa (PCR) (Not Detect) Wandy/B-Vanco Res Genes (Not Detect) KPC-Carbap Res Gene PCR (Not Detect) 07/31/21 07/31/21 07/31/21 Range/Units 17:35 17:35 17:35 WBC (4.5-11.0) X10^3/uL RBC (4.5-5.9) X10^6/uL Hgb (13.5-17.5) g/dL Hct (41-53) % MCV (80-100) fL MCH (26-34) PG MCHC (30-36) % RDW (11.6-14.8) % Plt Count (150-400) X10^3/uL Neut % (Auto) (50-75) % Lymph % (Auto) (25-40) % [place] % (Auto) (3-14) % Eos % (Auto) (2-4) % Baso % (Auto) (0-2) % Neut # (Auto) (1933-8656) /uL Lymph # (Auto) (5268-9437) /uL [place] # (Auto) (0-900) /uL Eos # (Auto) (0-450) /uL Baso # (Auto) (0-100) /uL PT 11.3 (10.1-12.7) SECONDS INR 1.0 (0.9-1.3) APTT 35 (26.4-36.2) SECONDS ABG pH (7.35-7.45) ABG pCO2 (35-45) mmHg ABG pO2 (80-100) mmHg ABG HCO3 (22-26) mmol/L ABG Total CO2 (21-31) mmol/L ABG O2 Saturation (95-100) % ABG Base Excess (-2-2) mmol/L FiO2 Sodium (137-145) mmol/L Potassium (3.4-5.1) mmol/L Chloride (98-107) mmol/L Carbon Dioxide (22-32) mmol/L BUN (9-20) mg/dL Creatinine (0.66-1.25) mg/dL Estimated GFR (>60) mL/min BUN/Creatinine Ratio (6-22) Glucose (70-100) mg/dL Lactate 3.6 H (0.7-2.1) mmol/L Calcium (8.4-10.2) mg/dL Total Bilirubin (0.2-1.3) mg/dL AST (17-59) IU/L ALT (<50) IU/L Alkaline Phosphatase (38-126) U/L Ammonia (9-30) umol/L Total Creatine Kinase (55-170) U/L CK-MB (CK-2) (<2.37) ng/mL CK-MB (CK-2) Rel Index (1.5-5.0) % Troponin I (0.01-0.034) ng/mL NT-Pro-B Natriuret Pep 34 (<125) pg/mL Total Protein (6.3-8.2) g/dL Albumin (3.5-5.0) g/dL Globulin (1.7-4.1) g/dL Albumin/Globulin Ratio (1.0-2.8) Lipase (23-300) U/L TSH (0.47-4.68) uIU/mL Urine Color Urine Appearance Urine pH (4.5-8.0) Ur Specific [place] (1.000-1.035) Urine Protein (Negative) Urine Glucose (UA) (Negative) g/dL Urine Ketones (NEGATIVE) Urine Occult Blood (Negative) Urine Nitrate (Negative) Urine Bilirubin (NEGATIVE) Urine Urobilinogen (0.2) E.U./dL Ur Leukocyte Esterase (NEGATIVE) Urine RBC (0-5/HPF) Urine WBC Urine Bacteria Hyaline Casts (None) Granular Casts (None) Ur Culture Indicated? U Opiates 300ng/mL cut (Negative) Ur Oxycodone Screen (Negative) Urine Methadone Screen (Negative) Acetaminophen (10-30) ug/mL Ur Barbiturates Screen (Negative) U Tricyclic Antidepress (Negative) Ur Phencyclidine Scrn (Negative) Ur Amphetamines Screen (Negative) U Methamphetamines Scrn (Negative) Ur MDMA Scrn (Ecstasy) (Negative) U Benzodiazepines Scrn (Negative) Urine Cocaine Screen (Negative) U Marijuana (THC) Screen (Negative) A. baumannii (PCR) (Not Detect) Samra albicans (PCR) (Not Detect) C. glabrata (PCR) (Not Detect) C. krusei (PCR) (Not Detect) C. parapsilosis (PCR) (Not Detect) C. tropicalis (PCR) (Not Detect) SARS-CoV-2 (PCR) (Negative) Enterobacteriac sp PCR (Not Detect) E. cloacae complex PCR (Not Detect) Enterococcus sp PCR (Not Detect) E. coli (PCR) (Not Detect) H. influenzae (PCR) (Not Detect) Klebsiella oxytoca PCR (Not Detect) Klebsiella pneumoniae (Not Detect) List. monocytogenes PCR (Not Detect) N. meningitidis (PCR) (Not Detect) Proteus species (PCR) (Not Detect) Serratia marcescens PCR (Not Detect) Staphylococcus sp PCR (Not Detect) Staph aureus (PCR) (Not Detect) mecA-Methicil Res Gene (Not Detect) Streptococcus sp PCR (Not Detect) Group A Strep (PCR) (Not Detect) Strep agalactiae (PCR) (Not Detect) Strep pneumoniae (PCR) (Not Detect) P. aeruginosa (PCR) (Not Detect) Wandy/B-Vanco Res Genes (Not Detect) KPC-Carbap Res Gene PCR (Not Detect) 07/31/21 07/31/21 07/31/21 Range/Units 18:17 18:22 18:22 WBC (4.5-11.0) X10^3/uL RBC (4.5-5.9) X10^6/uL Hgb (13.5-17.5) g/dL Hct (41-53) % MCV (80-100) fL MCH (26-34) PG MCHC (30-36) % RDW (11.6-14.8) % Plt Count (150-400) X10^3/uL Neut % (Auto) (50-75) % Lymph % (Auto) (25-40) % [place] % (Auto) (3-14) % Eos % (Auto) (2-4) % Baso % (Auto) (0-2) % Neut # (Auto) (0660-2417) /uL Lymph # (Auto) (8879-2002) /uL [place] # (Auto) (0-900) /uL Eos # (Auto) (0-450) /uL Baso # (Auto) (0-100) /uL PT (10.1-12.7) SECONDS INR (0.9-1.3) APTT (26.4-36.2) SECONDS ABG pH (7.35-7.45) ABG pCO2 (35-45) mmHg ABG pO2 (80-100) mmHg ABG HCO3 (22-26) mmol/L ABG Total CO2 (21-31) mmol/L ABG O2 Saturation (95-100) % ABG Base Excess (-2-2) mmol/L FiO2 Sodium (137-145) mmol/L Potassium (3.4-5.1) mmol/L Chloride (98-107) mmol/L Carbon Dioxide (22-32) mmol/L BUN (9-20) mg/dL Creatinine (0.66-1.25) mg/dL Estimated GFR (>60) mL/min BUN/Creatinine Ratio (6-22) Glucose (70-100) mg/dL Lactate (0.7-2.1) mmol/L Calcium (8.4-10.2) mg/dL Total Bilirubin (0.2-1.3) mg/dL AST (17-59) IU/L ALT (<50) IU/L Alkaline Phosphatase (38-126) U/L Ammonia (9-30) umol/L Total Creatine Kinase (55-170) U/L CK-MB (CK-2) (<2.37) ng/mL CK-MB (CK-2) Rel Index (1.5-5.0) % Troponin I (0.01-0.034) ng/mL NT-Pro-B Natriuret Pep (<125) pg/mL Total Protein (6.3-8.2) g/dL Albumin (3.5-5.0) g/dL Globulin (1.7-4.1) g/dL Albumin/Globulin Ratio (1.0-2.8) Lipase (23-300) U/L TSH (0.47-4.68) uIU/mL Urine Color Yellow Urine Appearance Clear Urine pH 5.5 (4.5-8.0) Ur Specific [place] >=1.030 H (1.000-1.035) Urine Protein 2+ H (Negative) Urine Glucose (UA) Trace H (Negative) g/dL Urine Ketones Negative (NEGATIVE) Urine Occult Blood Trace-lysed (Negative) Urine Nitrate Negative (Negative) Urine Bilirubin Negative (NEGATIVE) Urine Urobilinogen 0.2 (0.2) E.U./dL Ur Leukocyte Esterase Negative (NEGATIVE) Urine RBC 0-1/hpf (0-5/HPF) Urine WBC Not Reportable Urine Bacteria Not Reportable Hyaline Casts 0-1/lpf (None) Granular Casts 1-5/lpf (None) Ur Culture Indicated? Cult not indicated U Opiates 300ng/mL cut Positive H (Negative) Ur Oxycodone Screen Negative (Negative) Urine Methadone Screen Negative (Negative) Acetaminophen (10-30) ug/mL Ur Barbiturates Screen Negative (Negative) U Tricyclic Antidepress Negative (Negative) Ur Phencyclidine Scrn Negative (Negative) Ur Amphetamines Screen Positive H (Negative) U Methamphetamines Scrn Positive H (Negative) Ur MDMA Scrn (Ecstasy) Negative (Negative) U Benzodiazepines Scrn Negative (Negative) Urine Cocaine Screen Negative (Negative) U Marijuana (THC) Screen Positive H (Negative) A. baumannii (PCR) (Not Detect) Samra albicans (PCR) (Not Detect) C. glabrata (PCR) (Not Detect) C. krusei (PCR) (Not Detect) C. parapsilosis (PCR) (Not Detect) C. tropicalis (PCR) (Not Detect) SARS-CoV-2 (PCR) Negative (Negative) Enterobacteriac sp PCR (Not Detect) E. cloacae complex PCR (Not Detect) Enterococcus sp PCR (Not Detect) E. coli (PCR) (Not Detect) H. influenzae (PCR) (Not Detect) Klebsiella oxytoca PCR (Not Detect) Klebsiella pneumoniae (Not Detect) List. monocytogenes PCR (Not Detect) N. meningitidis (PCR) (Not Detect) Proteus species (PCR) (Not Detect) Serratia marcescens PCR (Not Detect) Staphylococcus sp PCR (Not Detect) Staph aureus (PCR) (Not Detect) mecA-Methicil Res Gene (Not Detect) Streptococcus sp PCR (Not Detect) Group A Strep (PCR) (Not Detect) Strep agalactiae (PCR) (Not Detect) Strep pneumoniae (PCR) (Not Detect) P. aeruginosa (PCR) (Not Detect) Wandy/B-Vanco Res Genes (Not Detect) KPC-Carbap Res Gene PCR (Not Detect) 07/31/21 07/31/21 07/31/21 Range/Units 18:50 19:29 19:29 WBC (4.5-11.0) X10^3/uL RBC (4.5-5.9) X10^6/uL Hgb (13.5-17.5) g/dL Hct (41-53) % MCV (80-100) fL MCH (26-34) PG MCHC (30-36) % RDW (11.6-14.8) % Plt Count (150-400) X10^3/uL Neut % (Auto) (50-75) % Lymph % (Auto) (25-40) % [place] % (Auto) (3-14) % Eos % (Auto) (2-4) % Baso % (Auto) (0-2) % Neut # (Auto) (3912-7837) /uL Lymph # (Auto) (8118-7335) /uL [place] # (Auto) (0-900) /uL Eos # (Auto) (0-450) /uL Baso # (Auto) (0-100) /uL PT (10.1-12.7) SECONDS INR (0.9-1.3) APTT (26.4-36.2) SECONDS ABG pH (7.35-7.45) ABG pCO2 (35-45) mmHg ABG pO2 (80-100) mmHg ABG HCO3 (22-26) mmol/L ABG Total CO2 (21-31) mmol/L ABG O2 Saturation (95-100) % ABG Base Excess (-2-2) mmol/L FiO2 Sodium (137-145) mmol/L Potassium (3.4-5.1) mmol/L Chloride (98-107) mmol/L Carbon Dioxide (22-32) mmol/L BUN (9-20) mg/dL Creatinine (0.66-1.25) mg/dL Estimated GFR (>60) mL/min BUN/Creatinine Ratio (6-22) Glucose (70-100) mg/dL Lactate 0.9 (0.7-2.1) mmol/L Calcium (8.4-10.2) mg/dL Total Bilirubin (0.2-1.3) mg/dL AST (17-59) IU/L ALT (<50) IU/L Alkaline Phosphatase (38-126) U/L Ammonia (9-30) umol/L Total Creatine Kinase (55-170) U/L CK-MB (CK-2) (<2.37) ng/mL CK-MB (CK-2) Rel Index (1.5-5.0) % Troponin I 0.186 H* (0.01-0.034) ng/mL NT-Pro-B Natriuret Pep (<125) pg/mL Total Protein (6.3-8.2) g/dL Albumin (3.5-5.0) g/dL Globulin (1.7-4.1) g/dL Albumin/Globulin Ratio (1.0-2.8) Lipase (23-300) U/L TSH (0.47-4.68) uIU/mL Urine Color Urine Appearance Urine pH (4.5-8.0) Ur Specific [place] (1.000-1.035) Urine Protein (Negative) Urine Glucose (UA) (Negative) g/dL Urine Ketones (NEGATIVE) Urine Occult Blood (Negative) Urine Nitrate (Negative) Urine Bilirubin (NEGATIVE) Urine Urobilinogen (0.2) E.U./dL Ur Leukocyte Esterase (NEGATIVE) Urine RBC (0-5/HPF) Urine WBC Urine Bacteria Hyaline Casts (None) Granular Casts (None) Ur Culture Indicated? U Opiates 300ng/mL cut (Negative) Ur Oxycodone Screen (Negative) Urine Methadone Screen (Negative) Acetaminophen (10-30) ug/mL Ur Barbiturates Screen (Negative) U Tricyclic Antidepress (Negative) Ur Phencyclidine Scrn (Negative) Ur Amphetamines Screen (Negative) U Methamphetamines Scrn (Negative) Ur MDMA Scrn (Ecstasy) (Negative) U Benzodiazepines Scrn (Negative) Urine Cocaine Screen (Negative) U Marijuana (THC) Screen (Negative) A. baumannii (PCR) Not detected (Not Detect) Samra albicans (PCR) Not detected (Not Detect) C. glabrata (PCR) Not detected (Not Detect) C. krusei (PCR) Not detected (Not Detect) C. parapsilosis (PCR) Not detected (Not Detect) C. tropicalis (PCR) Not detected (Not Detect) SARS-CoV-2 (PCR) (Negative) Enterobacteriac sp PCR Not detected (Not Detect) E. cloacae complex PCR Not detected (Not Detect) Enterococcus sp PCR Not detected (Not Detect) E. coli (PCR) Not detected (Not Detect) H. influenzae (PCR) Not detected (Not Detect) Klebsiella oxytoca PCR Not detected (Not Detect) Klebsiella pneumoniae Not detected (Not Detect) List. monocytogenes PCR Not detected (Not Detect) N. meningitidis (PCR) Not detected (Not Detect) Proteus species (PCR) Not detected (Not Detect) Serratia marcescens PCR Not detected (Not Detect) Staphylococcus sp PCR Detected H (Not Detect) Staph aureus (PCR) Not detected (Not Detect) mecA-Methicil Res Gene Detected H (Not Detect) Streptococcus sp PCR Not detected (Not Detect) Group A Strep (PCR) Not detected (Not Detect) Strep agalactiae (PCR) Not detected (Not Detect) Strep pneumoniae (PCR) Not detected (Not Detect) P. aeruginosa (PCR) Not detected (Not Detect) Wandy/B-Vanco Res Genes Not detected (Not Detect) KPC-Carbap Res Gene PCR Not detected (Not Detect) 07/31/21 Range/Units 19:30 WBC (4.5-11.0) X10^3/uL RBC (4.5-5.9) X10^6/uL Hgb (13.5-17.5) g/dL Hct (41-53) % MCV (80-100) fL MCH (26-34) PG MCHC (30-36) % RDW (11.6-14.8) % Plt Count (150-400) X10^3/uL Neut % (Auto) (50-75) % Lymph % (Auto) (25-40) % [place] % (Auto) (3-14) % Eos % (Auto) (2-4) % Baso % (Auto) (0-2) % Neut # (Auto) (2185-8833) /uL Lymph # (Auto) (3268-9120) /uL [place] # (Auto) (0-900) /uL Eos # (Auto) (0-450) /uL Baso # (Auto) (0-100) /uL PT (10.1-12.7) SECONDS INR (0.9-1.3) APTT (26.4-36.2) SECONDS ABG pH 7.22 L* (7.35-7.45) ABG pCO2 67.8 H* (35-45) mmHg ABG pO2 80 (80-100) mmHg ABG HCO3 28 H (22-26) mmol/L ABG Total CO2 30 (21-31) mmol/L ABG O2 Saturation 92 L (95-100) % ABG Base Excess 0.0 (-2-2) mmol/L FiO2 100 Sodium (137-145) mmol/L Potassium (3.4-5.1) mmol/L Chloride (98-107) mmol/L Carbon Dioxide (22-32) mmol/L BUN (9-20) mg/dL Creatinine (0.66-1.25) mg/dL Estimated GFR (>60) mL/min BUN/Creatinine Ratio (6-22) Glucose (70-100) mg/dL Lactate (0.7-2.1) mmol/L Calcium (8.4-10.2) mg/dL Total Bilirubin (0.2-1.3) mg/dL AST (17-59) IU/L ALT (<50) IU/L Alkaline Phosphatase (38-126) U/L Ammonia (9-30) umol/L Total Creatine Kinase (55-170) U/L CK-MB (CK-2) (<2.37) ng/mL CK-MB (CK-2) Rel Index (1.5-5.0) % Troponin I (0.01-0.034) ng/mL NT-Pro-B Natriuret Pep (<125) pg/mL Total Protein (6.3-8.2) g/dL Albumin (3.5-5.0) g/dL Globulin (1.7-4.1) g/dL Albumin/Globulin Ratio (1.0-2.8) Lipase (23-300) U/L TSH (0.47-4.68) uIU/mL Urine Color Urine Appearance Urine pH (4.5-8.0) Ur Specific [place] (1.000-1.035) Urine Protein (Negative) Urine Glucose (UA) (Negative) g/dL Urine Ketones (NEGATIVE) Urine Occult Blood (Negative) Urine Nitrate (Negative) Urine Bilirubin (NEGATIVE) Urine Urobilinogen (0.2) E.U./dL Ur Leukocyte Esterase (NEGATIVE) Urine RBC (0-5/HPF) Urine WBC Urine Bacteria Hyaline Casts (None) Granular Casts (None) Ur Culture Indicated? U Opiates 300ng/mL cut (Negative) Ur Oxycodone Screen (Negative) Urine Methadone Screen (Negative) Acetaminophen (10-30) ug/mL Ur Barbiturates Screen (Negative) U Tricyclic Antidepress (Negative) Ur Phencyclidine Scrn (Negative) Ur Amphetamines Screen (Negative) U Methamphetamines Scrn (Negative) Ur MDMA Scrn (Ecstasy) (Negative) U Benzodiazepines Scrn (Negative) Urine Cocaine Screen (Negative) U Marijuana (THC) Screen (Negative) A. baumannii (PCR) (Not Detect) Samra albicans (PCR) (Not Detect) C. glabrata (PCR) (Not Detect) C. krusei (PCR) (Not Detect) C. parapsilosis (PCR) (Not Detect) C. tropicalis (PCR) (Not Detect) SARS-CoV-2 (PCR) (Negative) Enterobacteriac sp PCR (Not Detect) E. cloacae complex PCR (Not Detect) Enterococcus sp PCR (Not Detect) E. coli (PCR) (Not Detect) H. influenzae (PCR) (Not Detect) Klebsiella oxytoca PCR (Not Detect) Klebsiella pneumoniae (Not Detect) List. monocytogenes PCR (Not Detect) N. meningitidis (PCR) (Not Detect) Proteus species (PCR) (Not Detect) Serratia marcescens PCR (Not Detect) Staphylococcus sp PCR (Not Detect) Staph aureus (PCR) (Not Detect) mecA-Methicil Res Gene (Not Detect) Streptococcus sp PCR (Not Detect) Group A Strep (PCR) (Not Detect) Strep agalactiae (PCR) (Not Detect) Strep pneumoniae (PCR) (Not Detect) P. aeruginosa (PCR) (Not Detect) Wandy/B-Vanco Res Genes (Not Detect) KPC-Carbap Res Gene PCR (Not Detect) MDM Narrative Medical decision making narrative: Patient arrived having received a total of 6 mg of Narcan in the field. Had pink frothy sputum. Oxygen saturations in the mid to low 80s on 10 L of non-rebreather. Had coarse breath sounds bilaterally. Had a left IO in place. IV was placed. He was sedated and intubated without difficulty secondary to his respiratory distress/respiratory failure This did improve his oxygen saturations to above 90 however requiring quite a bit of PEEP. Chest x-ray shows pulmonary edema. Is variable could be aspiration given the nature of how he was found. Initially sedated on propofol fall. This was switched to Precedex. There is no signs of trauma. Given the nature that he was found on the ground head CT was ordered. Care turned over to Dr. Chino to follow up and disposition. <Chelsey Chino MD - Last Filed: 08/01/21 02:48> Lab Data Labs: Lab Results 07/31/21 07/31/21 07/31/21 Range/Units 17:27 17:35 17:35 WBC 8.2 (4.5-11.0) X10^3/uL RBC 5.13 (4.5-5.9) X10^6/uL Hgb 14.9 (13.5-17.5) g/dL Hct 45.3 (41-53) % MCV 88.2 (80-100) fL MCH 29.1 (26-34) PG MCHC 33.0 (30-36) % RDW 13.9 (11.6-14.8) % Plt Count 306 (150-400) X10^3/uL Neut % (Auto) 59.1 (50-75) % Lymph % (Auto) 33.3 (25-40) % [place] % (Auto) 5.3 (3-14) % Eos % (Auto) 1.9 L (2-4) % Baso % (Auto) 0.4 (0-2) % Neut # (Auto) 4900 (0418-6199) /uL Lymph # (Auto) 2700 (5732-2795) /uL [place] # (Auto) 400 (0-900) /uL Eos # (Auto) 200 (0-450) /uL Baso # (Auto) 0 (0-100) /uL PT (10.1-12.7) SECONDS INR (0.9-1.3) APTT (26.4-36.2) SECONDS ABG pH (7.35-7.45) ABG pCO2 (35-45) mmHg ABG pO2 (80-100) mmHg ABG HCO3 (22-26) mmol/L ABG Total CO2 (21-31) mmol/L ABG O2 Saturation (95-100) % ABG Base Excess (-2-2) mmol/L FiO2 Sodium 141 (137-145) mmol/L Potassium 4.2 (3.4-5.1) mmol/L Chloride 104 (98-107) mmol/L Carbon Dioxide 27 (22-32) mmol/L BUN 21 H (9-20) mg/dL Creatinine 1.23 (0.66-1.25) mg/dL Estimated GFR > 60.0 (>60) mL/min BUN/Creatinine Ratio 17.1 (6-22) Glucose 149 H (70-100) mg/dL Lactate (0.7-2.1) mmol/L Calcium 9.1 (8.4-10.2) mg/dL Total Bilirubin 0.3 (0.2-1.3) mg/dL AST 41 (17-59) IU/L ALT 21 (<50) IU/L Alkaline Phosphatase 95 (38-126) U/L Ammonia (9-30) umol/L Total Creatine Kinase 324 H (55-170) U/L CK-MB (CK-2) 3.13 H (<2.37) ng/mL CK-MB (CK-2) Rel Index 1.0 L (1.5-5.0) % Troponin I 0.021 (0.01-0.034) ng/mL NT-Pro-B Natriuret Pep (<125) pg/mL Total Protein 8.3 H (6.3-8.2) g/dL Albumin 4.6 (3.5-5.0) g/dL Globulin 3.7 (1.7-4.1) g/dL Albumin/Globulin Ratio 1.2 (1.0-2.8) Lipase 151 (23-300) U/L TSH (0.47-4.68) uIU/mL Urine Color Urine Appearance Urine pH (4.5-8.0) Ur Specific [place] (1.000-1.035) Urine Protein (Negative) Urine Glucose (UA) (Negative) g/dL Urine Ketones (NEGATIVE) Urine Occult Blood (Negative) Urine Nitrate (Negative) Urine Bilirubin (NEGATIVE) Urine Urobilinogen (0.2) E.U./dL Ur Leukocyte Esterase (NEGATIVE) Urine RBC (0-5/HPF) Urine WBC Urine Bacteria Hyaline Casts (None) Granular Casts (None) Ur Culture Indicated? U Opiates 300ng/mL cut (Negative) Ur Oxycodone Screen (Negative) Urine Methadone Screen (Negative) Acetaminophen (10-30) ug/mL Ur Barbiturates Screen (Negative) U Tricyclic Antidepress (Negative) Ur Phencyclidine Scrn (Negative) Ur Amphetamines Screen (Negative) U Methamphetamines Scrn (Negative) Ur MDMA Scrn (Ecstasy) (Negative) U Benzodiazepines Scrn (Negative) Urine Cocaine Screen (Negative) U Marijuana (THC) Screen (Negative) A. baumannii (PCR) (Not Detect) Samra albicans (PCR) (Not Detect) C. glabrata (PCR) (Not Detect) C. krusei (PCR) (Not Detect) C. parapsilosis (PCR) (Not Detect) C. tropicalis (PCR) (Not Detect) SARS-CoV-2 (PCR) Negative (Negative) Enterobacteriac sp PCR (Not Detect) E. cloacae complex PCR (Not Detect) Enterococcus sp PCR (Not Detect) E. coli (PCR) (Not Detect) H. influenzae (PCR) (Not Detect) Klebsiella oxytoca PCR (Not Detect) Klebsiella pneumoniae (Not Detect) List. monocytogenes PCR (Not Detect) N. meningitidis (PCR) (Not Detect) Proteus species (PCR) (Not Detect) Serratia marcescens PCR (Not Detect) Staphylococcus sp PCR (Not Detect) Staph aureus (PCR) (Not Detect) mecA-Methicil Res Gene (Not Detect) Streptococcus sp PCR (Not Detect) Group A Strep (PCR) (Not Detect) Strep agalactiae (PCR) (Not Detect) Strep pneumoniae (PCR) (Not Detect) P. aeruginosa (PCR) (Not Detect) Wandy/B-Vanco Res Genes (Not Detect) KPC-Carbap Res Gene PCR (Not Detect) 07/31/21 07/31/21 07/31/21 Range/Units 17:35 17:35 17:35 WBC (4.5-11.0) X10^3/uL RBC (4.5-5.9) X10^6/uL Hgb (13.5-17.5) g/dL Hct (41-53) % MCV (80-100) fL MCH (26-34) PG MCHC (30-36) % RDW (11.6-14.8) % Plt Count (150-400) X10^3/uL Neut % (Auto) (50-75) % Lymph % (Auto) (25-40) % [place] % (Auto) (3-14) % Eos % (Auto) (2-4) % Baso % (Auto) (0-2) % Neut # (Auto) (3563-7671) /uL Lymph # (Auto) (0140-0769) /uL [place] # (Auto) (0-900) /uL Eos # (Auto) (0-450) /uL Baso # (Auto) (0-100) /uL PT (10.1-12.7) SECONDS INR (0.9-1.3) APTT (26.4-36.2) SECONDS ABG pH (7.35-7.45) ABG pCO2 (35-45) mmHg ABG pO2 (80-100) mmHg ABG HCO3 (22-26) mmol/L ABG Total CO2 (21-31) mmol/L ABG O2 Saturation (95-100) % ABG Base Excess (-2-2) mmol/L FiO2 Sodium (137-145) mmol/L Potassium (3.4-5.1) mmol/L Chloride (98-107) mmol/L Carbon Dioxide (22-32) mmol/L BUN (9-20) mg/dL Creatinine (0.66-1.25) mg/dL Estimated GFR (>60) mL/min BUN/Creatinine Ratio (6-22) Glucose (70-100) mg/dL Lactate (0.7-2.1) mmol/L Calcium (8.4-10.2) mg/dL Total Bilirubin (0.2-1.3) mg/dL AST (17-59) IU/L ALT (<50) IU/L Alkaline Phosphatase (38-126) U/L Ammonia 37 H (9-30) umol/L Total Creatine Kinase (55-170) U/L CK-MB (CK-2) (<2.37) ng/mL CK-MB (CK-2) Rel Index (1.5-5.0) % Troponin I (0.01-0.034) ng/mL NT-Pro-B Natriuret Pep (<125) pg/mL Total Protein (6.3-8.2) g/dL Albumin (3.5-5.0) g/dL Globulin (1.7-4.1) g/dL Albumin/Globulin Ratio (1.0-2.8) Lipase (23-300) U/L TSH 3.74 (0.47-4.68) uIU/mL Urine Color Urine Appearance Urine pH (4.5-8.0) Ur Specific [place] (1.000-1.035) Urine Protein (Negative) Urine Glucose (UA) (Negative) g/dL Urine Ketones (NEGATIVE) Urine Occult Blood (Negative) Urine Nitrate (Negative) Urine Bilirubin (NEGATIVE) Urine Urobilinogen (0.2) E.U./dL Ur Leukocyte Esterase (NEGATIVE) Urine RBC (0-5/HPF) Urine WBC Urine Bacteria Hyaline Casts (None) Granular Casts (None) Ur Culture Indicated? U Opiates 300ng/mL cut (Negative) Ur Oxycodone Screen (Negative) Urine Methadone Screen (Negative) Acetaminophen < 10 L (10-30) ug/mL Ur Barbiturates Screen (Negative) U Tricyclic Antidepress (Negative) Ur Phencyclidine Scrn (Negative) Ur Amphetamines Screen (Negative) U Methamphetamines Scrn (Negative) Ur MDMA Scrn (Ecstasy) (Negative) U Benzodiazepines Scrn (Negative) Urine Cocaine Screen (Negative) U Marijuana (THC) Screen (Negative) A. baumannii (PCR) (Not Detect) Samra albicans (PCR) (Not Detect) C. glabrata (PCR) (Not Detect) C. krusei (PCR) (Not Detect) C. parapsilosis (PCR) (Not Detect) C. tropicalis (PCR) (Not Detect) SARS-CoV-2 (PCR) (Negative) Enterobacteriac sp PCR (Not Detect) E. cloacae complex PCR (Not Detect) Enterococcus sp PCR (Not Detect) E. coli (PCR) (Not Detect) H. influenzae (PCR) (Not Detect) Klebsiella oxytoca PCR (Not Detect) Klebsiella pneumoniae (Not Detect) List. monocytogenes PCR (Not Detect) N. meningitidis (PCR) (Not Detect) Proteus species (PCR) (Not Detect) Serratia marcescens PCR (Not Detect) Staphylococcus sp PCR (Not Detect) Staph aureus (PCR) (Not Detect) mecA-Methicil Res Gene (Not Detect) Streptococcus sp PCR (Not Detect) Group A Strep (PCR) (Not Detect) Strep agalactiae (PCR) (Not Detect) Strep pneumoniae (PCR) (Not Detect) P. aeruginosa (PCR) (Not Detect) Wandy/B-Vanco Res Genes (Not Detect) KPC-Carbap Res Gene PCR (Not Detect) 07/31/21 07/31/21 07/31/21 Range/Units 17:35 17:35 17:35 WBC (4.5-11.0) X10^3/uL RBC (4.5-5.9) X10^6/uL Hgb (13.5-17.5) g/dL Hct (41-53) % MCV (80-100) fL MCH (26-34) PG MCHC (30-36) % RDW (11.6-14.8) % Plt Count (150-400) X10^3/uL Neut % (Auto) (50-75) % Lymph % (Auto) (25-40) % [place] % (Auto) (3-14) % Eos % (Auto) (2-4) % Baso % (Auto) (0-2) % Neut # (Auto) (4803-5668) /uL Lymph # (Auto) (8260-6356) /uL [place] # (Auto) (0-900) /uL Eos # (Auto) (0-450) /uL Baso # (Auto) (0-100) /uL PT 11.3 (10.1-12.7) SECONDS INR 1.0 (0.9-1.3) APTT 35 (26.4-36.2) SECONDS ABG pH (7.35-7.45) ABG pCO2 (35-45) mmHg ABG pO2 (80-100) mmHg ABG HCO3 (22-26) mmol/L ABG Total CO2 (21-31) mmol/L ABG O2 Saturation (95-100) % ABG Base Excess (-2-2) mmol/L FiO2 Sodium (137-145) mmol/L Potassium (3.4-5.1) mmol/L Chloride (98-107) mmol/L Carbon Dioxide (22-32) mmol/L BUN (9-20) mg/dL Creatinine (0.66-1.25) mg/dL Estimated GFR (>60) mL/min BUN/Creatinine Ratio (6-22) Glucose (70-100) mg/dL Lactate 3.6 H (0.7-2.1) mmol/L Calcium (8.4-10.2) mg/dL Total Bilirubin (0.2-1.3) mg/dL AST (17-59) IU/L ALT (<50) IU/L Alkaline Phosphatase (38-126) U/L Ammonia (9-30) umol/L Total Creatine Kinase (55-170) U/L CK-MB (CK-2) (<2.37) ng/mL CK-MB (CK-2) Rel Index (1.5-5.0) % Troponin I (0.01-0.034) ng/mL NT-Pro-B Natriuret Pep 34 (<125) pg/mL Total Protein (6.3-8.2) g/dL Albumin (3.5-5.0) g/dL Globulin (1.7-4.1) g/dL Albumin/Globulin Ratio (1.0-2.8) Lipase (23-300) U/L TSH (0.47-4.68) uIU/mL Urine Color Urine Appearance Urine pH (4.5-8.0) Ur Specific [place] (1.000-1.035) Urine Protein (Negative) Urine Glucose (UA) (Negative) g/dL Urine Ketones (NEGATIVE) Urine Occult Blood (Negative) Urine Nitrate (Negative) Urine Bilirubin (NEGATIVE) Urine Urobilinogen (0.2) E.U./dL Ur Leukocyte Esterase (NEGATIVE) Urine RBC (0-5/HPF) Urine WBC Urine Bacteria Hyaline Casts (None) Granular Casts (None) Ur Culture Indicated? U Opiates 300ng/mL cut (Negative) Ur Oxycodone Screen (Negative) Urine Methadone Screen (Negative) Acetaminophen (10-30) ug/mL Ur Barbiturates Screen (Negative) U Tricyclic Antidepress (Negative) Ur Phencyclidine Scrn (Negative) Ur Amphetamines Screen (Negative) U Methamphetamines Scrn (Negative) Ur MDMA Scrn (Ecstasy) (Negative) U Benzodiazepines Scrn (Negative) Urine Cocaine Screen (Negative) U Marijuana (THC) Screen (Negative) A. baumannii (PCR) (Not Detect) Samra albicans (PCR) (Not Detect) C. glabrata (PCR) (Not Detect) C. krusei (PCR) (Not Detect) C. parapsilosis (PCR) (Not Detect) C. tropicalis (PCR) (Not Detect) SARS-CoV-2 (PCR) (Negative) Enterobacteriac sp PCR (Not Detect) E. cloacae complex PCR (Not Detect) Enterococcus sp PCR (Not Detect) E. coli (PCR) (Not Detect) H. influenzae (PCR) (Not Detect) Klebsiella oxytoca PCR (Not Detect) Klebsiella pneumoniae (Not Detect) List. monocytogenes PCR (Not Detect) N. meningitidis (PCR) (Not Detect) Proteus species (PCR) (Not Detect) Serratia marcescens PCR (Not Detect) Staphylococcus sp PCR (Not Detect) Staph aureus (PCR) (Not Detect) mecA-Methicil Res Gene (Not Detect) Streptococcus sp PCR (Not Detect) Group A Strep (PCR) (Not Detect) Strep agalactiae (PCR) (Not Detect) Strep pneumoniae (PCR) (Not Detect) P. aeruginosa (PCR) (Not Detect) Wandy/B-Vanco Res Genes (Not Detect) KPC-Carbap Res Gene PCR (Not Detect) 07/31/21 07/31/21 07/31/21 Range/Units 18:17 18:22 18:22 WBC (4.5-11.0) X10^3/uL RBC (4.5-5.9) X10^6/uL Hgb (13.5-17.5) g/dL Hct (41-53) % MCV (80-100) fL MCH (26-34) PG MCHC (30-36) % RDW (11.6-14.8) % Plt Count (150-400) X10^3/uL Neut % (Auto) (50-75) % Lymph % (Auto) (25-40) % [place] % (Auto) (3-14) % Eos % (Auto) (2-4) % Baso % (Auto) (0-2) % Neut # (Auto) (9792-9456) /uL Lymph # (Auto) (6444-9606) /uL [place] # (Auto) (0-900) /uL Eos # (Auto) (0-450) /uL Baso # (Auto) (0-100) /uL PT (10.1-12.7) SECONDS INR (0.9-1.3) APTT (26.4-36.2) SECONDS ABG pH (7.35-7.45) ABG pCO2 (35-45) mmHg ABG pO2 (80-100) mmHg ABG HCO3 (22-26) mmol/L ABG Total CO2 (21-31) mmol/L ABG O2 Saturation (95-100) % ABG Base Excess (-2-2) mmol/L FiO2 Sodium (137-145) mmol/L Potassium (3.4-5.1) mmol/L Chloride (98-107) mmol/L Carbon Dioxide (22-32) mmol/L BUN (9-20) mg/dL Creatinine (0.66-1.25) mg/dL Estimated GFR (>60) mL/min BUN/Creatinine Ratio (6-22) Glucose (70-100) mg/dL Lactate (0.7-2.1) mmol/L Calcium (8.4-10.2) mg/dL Total Bilirubin (0.2-1.3) mg/dL AST (17-59) IU/L ALT (<50) IU/L Alkaline Phosphatase (38-126) U/L Ammonia (9-30) umol/L Total Creatine Kinase (55-170) U/L CK-MB (CK-2) (<2.37) ng/mL CK-MB (CK-2) Rel Index (1.5-5.0) % Troponin I (0.01-0.034) ng/mL NT-Pro-B Natriuret Pep (<125) pg/mL Total Protein (6.3-8.2) g/dL Albumin (3.5-5.0) g/dL Globulin (1.7-4.1) g/dL Albumin/Globulin Ratio (1.0-2.8) Lipase (23-300) U/L TSH (0.47-4.68) uIU/mL Urine Color Yellow Urine Appearance Clear Urine pH 5.5 (4.5-8.0) Ur Specific [place] >=1.030 H (1.000-1.035) Urine Protein 2+ H (Negative) Urine Glucose (UA) Trace H (Negative) g/dL Urine Ketones Negative (NEGATIVE) Urine Occult Blood Trace-lysed (Negative) Urine Nitrate Negative (Negative) Urine Bilirubin Negative (NEGATIVE) Urine Urobilinogen 0.2 (0.2) E.U./dL Ur Leukocyte Esterase Negative (NEGATIVE) Urine RBC 0-1/hpf (0-5/HPF) Urine WBC Not Reportable Urine Bacteria Not Reportable Hyaline Casts 0-1/lpf (None) Granular Casts 1-5/lpf (None) Ur Culture Indicated? Cult not indicated U Opiates 300ng/mL cut Positive H (Negative) Ur Oxycodone Screen Negative (Negative) Urine Methadone Screen Negative (Negative) Acetaminophen (10-30) ug/mL Ur Barbiturates Screen Negative (Negative) U Tricyclic Antidepress Negative (Negative) Ur Phencyclidine Scrn Negative (Negative) Ur Amphetamines Screen Positive H (Negative) U Methamphetamines Scrn Positive H (Negative) Ur MDMA Scrn (Ecstasy) Negative (Negative) U Benzodiazepines Scrn Negative (Negative) Urine Cocaine Screen Negative (Negative) U Marijuana (THC) Screen Positive H (Negative) A. baumannii (PCR) (Not Detect) Samra albicans (PCR) (Not Detect) C. glabrata (PCR) (Not Detect) C. krusei (PCR) (Not Detect) C. parapsilosis (PCR) (Not Detect) C. tropicalis (PCR) (Not Detect) SARS-CoV-2 (PCR) Negative (Negative) Enterobacteriac sp PCR (Not Detect) E. cloacae complex PCR (Not Detect) Enterococcus sp PCR (Not Detect) E. coli (PCR) (Not Detect) H. influenzae (PCR) (Not Detect) Klebsiella oxytoca PCR (Not Detect) Klebsiella pneumoniae (Not Detect) List. monocytogenes PCR (Not Detect) N. meningitidis (PCR) (Not Detect) Proteus species (PCR) (Not Detect) Serratia marcescens PCR (Not Detect) Staphylococcus sp PCR (Not Detect) Staph aureus (PCR) (Not Detect) mecA-Methicil Res Gene (Not Detect) Streptococcus sp PCR (Not Detect) Group A Strep (PCR) (Not Detect) Strep agalactiae (PCR) (Not Detect) Strep pneumoniae (PCR) (Not Detect) P. aeruginosa (PCR) (Not Detect) Wandy/B-Vanco Res Genes (Not Detect) KPC-Carbap Res Gene PCR (Not Detect) 07/31/21 07/31/21 07/31/21 Range/Units 18:50 19:29 19:29 WBC (4.5-11.0) X10^3/uL RBC (4.5-5.9) X10^6/uL Hgb (13.5-17.5) g/dL Hct (41-53) % MCV (80-100) fL MCH (26-34) PG MCHC (30-36) % RDW (11.6-14.8) % Plt Count (150-400) X10^3/uL Neut % (Auto) (50-75) % Lymph % (Auto) (25-40) % [place] % (Auto) (3-14) % Eos % (Auto) (2-4) % Baso % (Auto) (0-2) % Neut # (Auto) (9983-3196) /uL Lymph # (Auto) (8308-0191) /uL [place] # (Auto) (0-900) /uL Eos # (Auto) (0-450) /uL Baso # (Auto) (0-100) /uL PT (10.1-12.7) SECONDS INR (0.9-1.3) APTT (26.4-36.2) SECONDS ABG pH (7.35-7.45) ABG pCO2 (35-45) mmHg ABG pO2 (80-100) mmHg ABG HCO3 (22-26) mmol/L ABG Total CO2 (21-31) mmol/L ABG O2 Saturation (95-100) % ABG Base Excess (-2-2) mmol/L FiO2 Sodium (137-145) mmol/L Potassium (3.4-5.1) mmol/L Chloride (98-107) mmol/L Carbon Dioxide (22-32) mmol/L BUN (9-20) mg/dL Creatinine (0.66-1.25) mg/dL Estimated GFR (>60) mL/min BUN/Creatinine Ratio (6-22) Glucose (70-100) mg/dL Lactate 0.9 (0.7-2.1) mmol/L Calcium (8.4-10.2) mg/dL Total Bilirubin (0.2-1.3) mg/dL AST (17-59) IU/L ALT (<50) IU/L Alkaline Phosphatase (38-126) U/L Ammonia (9-30) umol/L Total Creatine Kinase (55-170) U/L CK-MB (CK-2) (<2.37) ng/mL CK-MB (CK-2) Rel Index (1.5-5.0) % Troponin I 0.186 H* (0.01-0.034) ng/mL NT-Pro-B Natriuret Pep (<125) pg/mL Total Protein (6.3-8.2) g/dL Albumin (3.5-5.0) g/dL Globulin (1.7-4.1) g/dL Albumin/Globulin Ratio (1.0-2.8) Lipase (23-300) U/L TSH (0.47-4.68) uIU/mL Urine Color Urine Appearance Urine pH (4.5-8.0) Ur Specific [place] (1.000-1.035) Urine Protein (Negative) Urine Glucose (UA) (Negative) g/dL Urine Ketones (NEGATIVE) Urine Occult Blood (Negative) Urine Nitrate (Negative) Urine Bilirubin (NEGATIVE) Urine Urobilinogen (0.2) E.U./dL Ur Leukocyte Esterase (NEGATIVE) Urine RBC (0-5/HPF) Urine WBC Urine Bacteria Hyaline Casts (None) Granular Casts (None) Ur Culture Indicated? U Opiates 300ng/mL cut (Negative) Ur Oxycodone Screen (Negative) Urine Methadone Screen (Negative) Acetaminophen (10-30) ug/mL Ur Barbiturates Screen (Negative) U Tricyclic Antidepress (Negative) Ur Phencyclidine Scrn (Negative) Ur Amphetamines Screen (Negative) U Methamphetamines Scrn (Negative) Ur MDMA Scrn (Ecstasy) (Negative) U Benzodiazepines Scrn (Negative) Urine Cocaine Screen (Negative) U Marijuana (THC) Screen (Negative) A. baumannii (PCR) Not detected (Not Detect) Samra albicans (PCR) Not detected (Not Detect) C. glabrata (PCR) Not detected (Not Detect) C. krusei (PCR) Not detected (Not Detect) C. parapsilosis (PCR) Not detected (Not Detect) C. tropicalis (PCR) Not detected (Not Detect) SARS-CoV-2 (PCR) (Negative) Enterobacteriac sp PCR Not detected (Not Detect) E. cloacae complex PCR Not detected (Not Detect) Enterococcus sp PCR Not detected (Not Detect) E. coli (PCR) Not detected (Not Detect) H. influenzae (PCR) Not detected (Not Detect) Klebsiella oxytoca PCR Not detected (Not Detect) Klebsiella pneumoniae Not detected (Not Detect) List. monocytogenes PCR Not detected (Not Detect) N. meningitidis (PCR) Not detected (Not Detect) Proteus species (PCR) Not detected (Not Detect) Serratia marcescens PCR Not detected (Not Detect) Staphylococcus sp PCR Detected H (Not Detect) Staph aureus (PCR) Not detected (Not Detect) mecA-Methicil Res Gene Detected H (Not Detect) Streptococcus sp PCR Not detected (Not Detect) Group A Strep (PCR) Not detected (Not Detect) Strep agalactiae (PCR) Not detected (Not Detect) Strep pneumoniae (PCR) Not detected (Not Detect) P. aeruginosa (PCR) Not detected (Not Detect) Wandy/B-Vanco Res Genes Not detected (Not Detect) KPC-Carbap Res Gene PCR Not detected (Not Detect) 07/31/21 Range/Units 19:30 WBC (4.5-11.0) X10^3/uL RBC (4.5-5.9) X10^6/uL Hgb (13.5-17.5) g/dL Hct (41-53) % MCV (80-100) fL MCH (26-34) PG MCHC (30-36) % RDW (11.6-14.8) % Plt Count (150-400) X10^3/uL Neut % (Auto) (50-75) % Lymph % (Auto) (25-40) % [place] % (Auto) (3-14) % Eos % (Auto) (2-4) % Baso % (Auto) (0-2) % Neut # (Auto) (4328-9437) /uL Lymph # (Auto) (0136-7090) /uL [place] # (Auto) (0-900) /uL Eos # (Auto) (0-450) /uL Baso # (Auto) (0-100) /uL PT (10.1-12.7) SECONDS INR (0.9-1.3) APTT (26.4-36.2) SECONDS ABG pH 7.22 L* (7.35-7.45) ABG pCO2 67.8 H* (35-45) mmHg ABG pO2 80 (80-100) mmHg ABG HCO3 28 H (22-26) mmol/L ABG Total CO2 30 (21-31) mmol/L ABG O2 Saturation 92 L (95-100) % ABG Base Excess 0.0 (-2-2) mmol/L FiO2 100 Sodium (137-145) mmol/L Potassium (3.4-5.1) mmol/L Chloride (98-107) mmol/L Carbon Dioxide (22-32) mmol/L BUN (9-20) mg/dL Creatinine (0.66-1.25) mg/dL Estimated GFR (>60) mL/min BUN/Creatinine Ratio (6-22) Glucose (70-100) mg/dL Lactate (0.7-2.1) mmol/L Calcium (8.4-10.2) mg/dL Total Bilirubin (0.2-1.3) mg/dL AST (17-59) IU/L ALT (<50) IU/L Alkaline Phosphatase (38-126) U/L Ammonia (9-30) umol/L Total Creatine Kinase (55-170) U/L CK-MB (CK-2) (<2.37) ng/mL CK-MB (CK-2) Rel Index (1.5-5.0) % Troponin I (0.01-0.034) ng/mL NT-Pro-B Natriuret Pep (<125) pg/mL Total Protein (6.3-8.2) g/dL Albumin (3.5-5.0) g/dL Globulin (1.7-4.1) g/dL Albumin/Globulin Ratio (1.0-2.8) Lipase (23-300) U/L TSH (0.47-4.68) uIU/mL Urine Color Urine Appearance Urine pH (4.5-8.0) Ur Specific [place] (1.000-1.035) Urine Protein (Negative) Urine Glucose (UA) (Negative) g/dL Urine Ketones (NEGATIVE) Urine Occult Blood (Negative) Urine Nitrate (Negative) Urine Bilirubin (NEGATIVE) Urine Urobilinogen (0.2) E.U./dL Ur Leukocyte Esterase (NEGATIVE) Urine RBC (0-5/HPF) Urine WBC Urine Bacteria Hyaline Casts (None) Granular Casts (None) Ur Culture Indicated? U Opiates 300ng/mL cut (Negative) Ur Oxycodone Screen (Negative) Urine Methadone Screen (Negative) Acetaminophen (10-30) ug/mL Ur Barbiturates Screen (Negative) U Tricyclic Antidepress (Negative) Ur Phencyclidine Scrn (Negative) Ur Amphetamines Screen (Negative) U Methamphetamines Scrn (Negative) Ur MDMA Scrn (Ecstasy) (Negative) U Benzodiazepines Scrn (Negative) Urine Cocaine Screen (Negative) U Marijuana (THC) Screen (Negative) A. baumannii (PCR) (Not Detect) Samra albicans (PCR) (Not Detect) C. glabrata (PCR) (Not Detect) C. krusei (PCR) (Not Detect) C. parapsilosis (PCR) (Not Detect) C. tropicalis (PCR) (Not Detect) SARS-CoV-2 (PCR) (Negative) Enterobacteriac sp PCR (Not Detect) E. cloacae complex PCR (Not Detect) Enterococcus sp PCR (Not Detect) E. coli (PCR) (Not Detect) H. influenzae (PCR) (Not Detect) Klebsiella oxytoca PCR (Not Detect) Klebsiella pneumoniae (Not Detect) List. monocytogenes PCR (Not Detect) N. meningitidis (PCR) (Not Detect) Proteus species (PCR) (Not Detect) Serratia marcescens PCR (Not Detect) Staphylococcus sp PCR (Not Detect) Staph aureus (PCR) (Not Detect) mecA-Methicil Res Gene (Not Detect) Streptococcus sp PCR (Not Detect) Group A Strep (PCR) (Not Detect) Strep agalactiae (PCR) (Not Detect) Strep pneumoniae (PCR) (Not Detect) P. aeruginosa (PCR) (Not Detect) Wandy/B-Vanco Res Genes (Not Detect) KPC-Carbap Res Gene PCR (Not Detect) Imaging Data Chest x-ray: Radiologist's Impression: FINDINGS: Surgical changes and devices: There is an endotracheal tube with the tip approximately 0.8 cm from the asia. A nasogastric tube extends into the stomach. Lungs and pleura: There are confluent bilateral airspace opacities with a perihilar and upper lobe predominance. No pleural effusions or definite pneumothorax. Mediastinum: Mediastinal contours appear unchanged. Heart size is normal. Bones and chest wall: No suspicious bony lesions. Overlying soft tissues appear unremarkable. IMPRESSION: 1. Endotracheal tube tip approximately 0.8 cm from the asia. Recommend withdrawal by approximately 3 cm. Findings discussed with Jhonny Savage on 07/31/2021 at 6:40 p.m.. 2. Confluent bilateral airspace opacities with a perihilar and upper lobe predominance. The findings are nonspecific and may represent pneumonia, pulmonary edema, aspiration, or hemorrhage among other etiologies. Dictated by: Keegan Squires M.D. on 07/31/2021 at 18:37 CT scan - head: Radiologist's Impression: FINDINGS: Image quality: Excellent. CSF spaces: Basal cisterns are patent. No extra-axial fluid collections. Ventricles are normal in size and shape. There is mild cerebral volume loss with prominence of the extra-axial spaces and sulci predominantly along the parietal lobes. Brain: No intracranial hemorrhage, mass, or mass effect. Vick-white matter interface appears preserved. Skull and face: Calvarium and visualized facial bones are intact, without suspicious lesions. An endotracheal tube and nasogastric tube are partially visualized. There is a small amount of fluid within the nasopharynx. Sinuses: Small air-fluid levels are demonstrated within the bilateral maxillary sinuses. Mild mucosal thickening demonstrated within the ethmoid sinuses. IMPRESSION: 1. No acute intracranial abnormality. 2. Mild parietal lobe predominant cerebral volume loss. 3. Air-fluid levels within the maxillary sinuses likely related to intubation versus acute sinusitis. Dictated by: Keegan Squires M.D. on 07/31/2021 at 20:22 ECG Data Interpretation: Sinus rhythm at a rate of 75 No acute ischemic changes Prolonged QT with QTC corrected at 484 MDM Narrative Medical decision making narrative: Patient arrived having received a total of 6 mg of Narcan in the field. Had pink frothy sputum. Oxygen saturations in the mid to low 80s on 10 L of non-rebreather. Had coarse breath sounds bilaterally. Had a left IO in place. IV was placed. He was sedated and intubated without difficulty secondary to his respiratory distress/respiratory failure This did improve his oxygen saturations to above 90 however requiring quite a bit of PEEP. Chest x-ray shows pulmonary edema. Is variable could be aspiration given the nature of how he was found. Initially sedated on propofol fall. This was switched to Precedex. There is no signs of trauma. Given the nature that he was found on the ground head CT was ordered. Care turned over to Dr. Chino to follow up and disposition. Care is assumed from Dr. Steward Right IJ central line placed without difficulty. Confirmatory chest x-ray shows increasing pulmonary edema. Care is reviewed with our hospitalist who will review with our ICU telemedicine doctor to see if we can continue to anticipate admission for heroin overdose with aspiration and concern for pulmonary edema secondary to large doses of Narcan and possibly development of ARDS at our facility. At this time there does not appear to be any infectious or cardiac etiology complicating factors. 830 Vent Rate 25, Peep 12, overbreathing 32, 450 tidal volume, 100%, high pressures. Pulse ox 90% and RR increasing to 32. CO2 was 68 with a pH of 7.2 after 2 hours of ventilation Pressure 107/72 2L fluid and 4mcg norepi, 3 L going In and then will continue rate at 200 an hour Precedex and versed for sedation CT no acute intracranial abnormality Troponin is trending up from .021 to .186 Lactic is improving 8:45 care is reviewed with tele cap blocker, Dr. Parks Recommends transfer to higher level care hospital, so far called been made to [facility], [facility] and [facility] none of which have ICU beds. [facility] has been contacted we are waiting to hear from them. Interval treatment in the emergency room he recommends -increasing PEEP to 16 -goal is sats above 90 -changing Precedex to propofol, fentanyl Versed with goal of deep sedation -if a 2nd at pressor is needed adding vasopressin, if that is needed starting hydrocortisone 50 mg IV q.6 -adding vancomycin and Zosyn -if still having difficulty with pulmonary pressures, ventilation, oxygenation will need to paralyze him and he recommends using rocuronium push q.1 hour. 900pm care plan reviewed with nursing and respiratory staff. No evidence of spontaneous pneumothorax at this time. Concerns are reviewed with his mother and his brother. Given the dropping saturations in light of 100% oxygenation and difficulty with increasing both oxygenation and ventilation the possibility of not surviving this overdose is very real. We discussed the very aggressive measures were currently taking to do all the we can and very clearly discussed not treating ventricular arrhythmias should they arise or starting CPR if clinical situation deteriorates (DNR with continued aggressive care to point of required CPR) Continuing to look for alternate ICU beds 9:58 [facility] has an ICU bed and accepts the patient. Spoke with Dr Noble to review all clinical findings and care today. [facility] is contacted for transport. Mother and brother are updated on events. Contact information: Mother Mariam [phone] Brother [address]ant [phone] Critical Care Time <Nicko Steward DO - Last Filed: 08/05/21 18:06> Critical Care Time Critical Care Time: Yes Total Critical Care Time: 35 Attestation: The high probability of a clinically significant, sudden or life threatening deterioration of the respiratory, cardiovascular system(s) required my full and direct attention, intervention and personal management. The aggregate critical care time was [35] minutes. This time is in addition to time spent performing reported procedures but includes the following: [x] Data Review and interpretation [x] Patient assessment and monitoring of vital signs [x] Documentation [x] Medication orders and management <Chelsey Chino MD - Last Filed: 08/01/21 02:48> Critical Care Time Total Critical Care Time: 240 Attestation: The high probability of a clinically significant, sudden or life threatening deterioration of the respiratory, cardiovascular system(s) required my full and direct attention, intervention and personal management. The aggregate critical care time was [35] minutes. This time is in addition to time spent performing reported procedures but includes the following: [x] Data Review and interpretation [x] Patient assessment and monitoring of vital signs [x] Documentation [x] Medication orders and management Continued ICU care management including advanced ventilation, blood pressure support medications, sedation and continued evaluation and consultation with multiple physicians as well as family in setting of state wide high census and lack of ICU beds. Discharge Plan Departure Patient Disposition: [facility] Clinical Impression: Acute hypotension Respiratory failure, acute Qualifiers: Respiratory failure complication: hypoxia and hypercapnia Qualified Code(s): J96.01 - Acute respiratory failure with hypoxia Pulmonary edema Qualifiers: Chronicity: acute Qualified Code(s): J81.0 - Acute pulmonary edema Accidental heroin overdose Qualifiers: Encounter type: initial encounter Qualified Code(s): T40.1X1A - Poisoning by heroin, accidental (unintentional), initial encounter Prescriptions: No Action verapamil 80 mg tablet 80 mg PO BEDTIME Qty: 90 RF: 0 lisinopril 10 mg tablet 10 mg PO DAILY Qty: 90 RF: 0 zolpidem 10 mg tablet 10 mg PO BEDTIME Qty: 20 RF: 0 clonazepam 2 mg tablet See Rx Instructions PO BID Qty: 60 RF: 0 buprenorphine-naloxone [Suboxone] 8-2 mg film 2 film BUCCAL Q24H RF: 0 dextroamphetamine-amphetamine 15 mg tablet 15 mg PO BID RF: 0
[2021-07-31 18:07] LABS: Acetaminophen < 10 ug/mL (10-30)
[2021-07-31] MEDS: SODIUM CHLORIDE 0.9% 1,000 ML 50 ML IV (18:07)
[2021-07-31] MEDS: propofoL 1,000 MG/100 ML VIAL 6.162 MG IV (18:08)
[2021-07-31] MEDS: DEXMEDETOMIDINE HCL 400 MCG in SODIUM CHLORIDE 0.9% 96 ML 157.008 ML IV (18:09)
[2021-07-31 18:11] LABS: Troponin I 0.021 ng/mL (0.01-0.034)
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
[2021-07-31 18:15] LABS: Creatine Kinase MB 3.13 ng/mL (<2.37)
[2021-07-31 18:38] LABS: UR Morphine/Opiate cutoff 300 Positive (Negative); Ur Creatinine Normal (Normal); Ur Specific Gravity Normal (Normal); Urine Amphetamines Positive (Negative); Urine Barbiturates Negative (Negative); Urine Benzodiazepines Negative (Negative); Urine Cocaine Negative (Negative); Urine MDMA Negative (Negative); Urine Methadone Negative (Negative); Urine Methamphetamines Positive (Negative); Urine Oxycodone Negative (Negative); Urine Phencyclidine Negative (Negative); Urine Tetrahydrocannabinol Positive (Negative); Urine Tricyclic Antidepressant Negative (Negative); Urine pH Normal (Normal)
[2021-07-31 18:38] LABS: Thyroid Stimulating Hormone 3.74 uIU/mL (0.47-4.68)
[2021-07-31] MEDS: NOREPINEPHRINE 4 MG in DEXTROSE 5% IN WATER 250 ML 30.48 ML IV (18:39)
[2021-07-31] MEDS: SODIUM CHLORIDE 0.9% 1,000 ML 1000 ML IV ×2 (18:41→20:27)
--- NOTE | 2021-07-31 18:54 | DI.RAD.S_ITS ---
PROCEDURE: XR CHEST 1V INDICATIONS: central line placement; NG tube placement TECHNIQUE: One view of the chest was acquired. COMPARISON: [facility], CR, XR CHEST 1V, 07/31/2021, 17:42. FINDINGS: Surgical changes and devices: Endotracheal tube 4.2 cm above the asia. Nasogastric tube in the stomach. Right IJ central venous line in the upper SVC. Lungs and pleura: Patchy bilateral pulmonary infiltrates present. Old healed right-sided rib fracture. Right costophrenic angle not included on the exam. Mediastinum: Mediastinal contours appear normal. Heart size is normal. Bones and chest wall: No suspicious bony lesions. Overlying soft tissues appear unremarkable. IMPRESSION: Endotracheal tube tip 4.2 cm above the asia. Nasogastric tube in the stomach. Right IJ central venous line in the SVC without pneumothorax. Patchy bilateral pulmonary infiltrates consistent with pneumonia Approved by: Michael Crowder M.D. on 07/31/2021 at 18:22
[2021-07-31 19:04] LABS: Lactate (Lactic Acid) 3.6 mmol/L (0.7-2.1)
[2021-07-31 19:06] LABS: Prothrombin Time 11.3 SECONDS (10.1-12.7)
[2021-07-31 19:09] LABS: PTT Partial Thromboplastin Tim 35 SECONDS (26.4-36.2)
[2021-07-31 19:14] LABS: NT-proBNP (BNP-Adult 18+) 34 pg/mL (<125)
[2021-07-31] MEDS: MIDAZOLAM 2 MG/2 ML VIAL IV (19:18)
--- NOTE | 2021-07-31 19:25 | CM.SWNOTE ---
BOARD MIXER TENDER Note BOARD MIXER TENDER receives consult and meets with patient's mother Alecia in the lobby. Patient is 50 y/o male who presents to ED via EMS for concern of an overdose. Patient has history of TBI, IV substance abuse, ADD, personality disorder and Anxiety. Patient received narcan upon arrival to ED, at ED patient is aspirating with difficulty breathing. Patient was intubated. Mother endorses to BOARD MIXER TENDER that she spoke with patient on the phone prior to [place] [address] Mother states that patient endorsed he was going to take a shower. Mother endorses that she found son with his face on the ground, surrounded by vomit and aspirating. Mother endorses she called 911 and EMS arrived. Mother endorses that patient states he has been going to [facility] for MAT, counseling and has an rx for Suboxone and has hx of going to [facility]. Mother states that patient can drive himself to appts and she does not have consent with his providers so she does not have confirmation about his engagement in outpatient treatment. Mother endorses that patient has rx for Adderall, blood pressure medication, and Clonazapam. Patient's brother from [facility] arrives to ED waiting area to be with patient's mother. MIGUEL Toussaint will bring patient's family back to be in room with patient when patient is more stable. Patient is in critical condition at this time. Plan: ED provider to continue to medically assess patient and treat him in ED and to determine appropriate POC. SKIP Godinez
[2021-07-31 19:26] LABS: COVID19 - ADMIT (NP swab/PCR) Negative (Negative)
[2021-07-31] MEDS: MIDAZOLAM 50 MG in DEXTROSE 5% IN WATER 240 ML 10.27 ML IV (19:31)
[2021-07-31 19:46] LABS: pH ABG 7.22 (7.35-7.45)
[2021-07-31 19:47] LABS: PCO2 ABG 67.8 mmHg (35-45)
[2021-07-31 19:48] LABS: Lactate (Lactic Acid) 0.9 mmol/L (0.7-2.1)
[2021-07-31 19:48] LABS: HCO3 ABG 28 mmol/L (22-26); Oxygen Saturation ABG 92 % (95-100); PO2 ABG 80 mmHg (80-100); TCO2 ABG 30 mmol/L (21-31)
[2021-07-31 19:49] LABS: Fractionated Inspired Oxygen 100
[2021-07-31 20:24] LABS: Troponin I 0.186 ng/mL (0.01-0.034)
[2021-07-31] MEDS: SODIUM CHLORIDE 0.9% 1,000 ML 200 ML IV (20:27)
[2021-07-31 20:53] LABS: Reflexed Lactate in 2 Hours Y
[2021-07-31] MEDS: PIPERACILLIN/TAZO 4.5 GM in SODIUM CHLORIDE 0.9% 100 ML 200 ML IV (21:17)
[2021-07-31] MEDS: VANCOMYCIN 1,500 MG/300 ML PIGGYBACK 200 MG IV (21:18)
[2021-07-31] MEDS: fentaNYL 1,000 MCG in DEXTROSE 5% IN WATER 230 ML 17.973 ML IV (21:25)
[2021-07-31 23:10] LABS: Appearance Urine UA CLEAR; Bilirubin Urine UA NEGATIVE (NEGATIVE); Color Urine UA YELLOW; Glucose Urine UA TRACE g/dL (Negative); Ketones Urine UA NEGATIVE (NEGATIVE); Leukocyte Esterase Urine UA NEGATIVE (NEGATIVE); Nitrite Urine UA NEGATIVE (Negative); Occult Blood Urine UA TRACE-LYSED (Negative); Protein Urine UA 2+ (Negative); Specific Gravity Urine UA >=1.030 (1.000-1.035); Urobilinogen Urine UA 0.2 E.U./dL (0.2); pH Urine UA 5.5 (4.5-8.0)
[2021-07-31 23:18] LABS: RBC Urine 0-1/HPF (0-5/HPF)
[2021-07-31 23:19] LABS: Culture Indicated Urine Cult Not Indicated; Granular Casts Urine 1-5/LPF; Hyaline Casts Urine 0-1/LPF
--- NOTE | 2021-07-31 23:22 | PC.NURSE ---
Report rec'd from MIGUEL Toussaint. DEBBIE in dept for transfer to OSH. Assisted with transfer of pt to [facility] stretcher. Infusion stop times in [facility]AN upon transfer of care to DEBBIE RN. All gtt's transferred to [facility] pumps and infusing on transfer out of department
[2021-08-01 14:28] LABS: Acinetobacter baumannii Not Detected (Not Detect); Candida albicans Not Detected (Not Detect); Candida glabrata Not Detected (Not Detect); Candida krusei Not Detected (Not Detect); Candida parapsilosis Not Detected (Not Detect); Candida tropicalis Not Detected (Not Detect); E. coli Not Detected (Not Detect); Enterobacter cloacae complex Not Detected (Not Detect); Enterobacteriaceae species Not Detected (Not Detect); Enterococcus species Not Detected (Not Detect); Haemophilus influenzae Not Detected (Not Detect); KPC (carbapenem-resist gene) Not Detected (Not Detect); Listeria monocytogenes Not Detected (Not Detect); Methicillin-resistant gene Detected (Not Detect); Neisseria meningitidis Not Detected (Not Detect); Proteus species Not Detected (Not Detect); Pseudomonas aeruginosa Not Detected (Not Detect); Serratia marcescens Not Detected (Not Detect); Staphylococcus species Detected (Not Detect); Streptococcus agalactiae (Gr B Not Detected (Not Detect); Streptococcus pneumonia Not Detected (Not Detect); Streptococcus pyogenes (Gr A) Not Detected (Not Detect); Streptococcus species Not Detected (Not Detect); Vancomycin-rest genes A/B Not Detected (Not Detect)
== END 2021-07-31 23:25 | disposition short-term general hospital (02) ==
PROVIDERS: Emergency Medicine; Physician Assistant; Emergency Provider Emergency Medicine; Family Provider Student in an Organized Health Care Education/Training Program
DX: T40.1X1A Poisoning by heroin, accidental (unintentional), initial encounter (principal); J81.0 Acute pulmonary edema; J96.01 Acute respiratory failure with hypoxia; I95.9 Hypotension, unspecified; Z20.822 Contact with and (suspected) exposure to COVID-19
CPT/HCPCS: 31500; 36415; 36600; 70450; 71045; 80053; 80305; 80329; 81001; 82140; 82550; 82553; 82805; 83605; 83690; 83880; 84443; 84484; 85025; 85610; 85730; 87040; 87077; 87150; 87186; 87205; 87635; 93005; 93010; 94002; 94003; 94799; 96365; 96366; 96367; 96368; 96375; 99285; 99291; 99292; C9803; G0480; J0330; J2250; J2405; J2543; J2704; J3010; J3490

== ENCOUNTER 2022-11-26 18:13 | Emergency (ER) | payer MEDICARE, MEDICAID, SELFPAY ==
[2021-07-31 21:50] VITALS: PULSE 81; RESP 1; RESP 26; O2SAT 92
[2022-11-26] VITALS (12 sets, daily range): BP systolic 136–178; BP diastolic 77–116; PULSE 104–115; RESP 12–32; TEMP 36.3; O2SAT 97–99; BMI 33.7
[2022-11-26] MEDS: LIDOCAINE 2% W/EPI INJ 40 ML INJ (18:22)
[2022-11-26] MEDS: MORPHINE 4 MG/ML INJ IM (18:30)
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
[2022-11-26 18:56] LABS: Add Manual Diff / Slide Review NO; Basophils Absolute Auto 100 /uL (0-100); Basophils Percent Auto 0.7 % (0-2); Eosinophils Absolute Auto 100 /uL (0-450); Eosinophils Percent Auto 0.6 % (2-4); Hematocrit 45.1 % (41-53); Hemoglobin 15.3 g/dL (13.5-17.5); Lymphocytes Absolute Auto 2300 /uL (1100-4500); Lymphocytes Percent Auto 24.8 % (25-40); Mean Corpuscular Hemoglobin 29.9 PG (26-34); Mean Corpuscular Volume 87.9 fL (80-100); Monocytes Absolute Auto 600 /uL (0-900); Monocytes Percent Auto 6.6 % (3-14); Neutrophils Absolute Auto 6400 /uL (1500-7000); Neutrophils Percent Auto 67.3 % (50-75); Platelet Count 345 X10^3/uL (150-400); Red Blood Cell Count 5.13 X10^6/uL (4.5-5.9); Red Cell Distribution Width 13.7 % (11.6-14.8); White Blood Cell Count 9.5 X10^3/uL (4.5-11.0)
[2022-11-26 19:04] LABS: BUN Creatinine Ratio 21.8 (6-22); Blood Urea Nitrogen 26 mg/dL (9-20); Calcium 9.1 mg/dL (8.4-10.2); Carbon Dioxide 29 mmol/L (22-32); Chloride 101 mmol/L (98-107); Estimated Glomerular Filt Rate > 60 mL/min (>60); Glucose 101 mg/dL (70-100); Sodium 141 mmol/L (137-145)
[2022-11-26 19:09] LABS: HEMOLYSIS 117 (0-50)
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
--- NOTE | 2022-11-26 19:28 | DI.RAD.S_ITS ---
PROCEDURE: XR HAND LT MIN 3V INDICATIONS: swelling, trauma TECHNIQUE: 3 views of the hand(s) acquired. COMPARISON: [facility], CR, XR HAND LT MIN 3V, 04/25/2018, 16:35. FINDINGS: Bones: No fractures or dislocations. Carpal bones are normally aligned. No suspicious bony lesions. Soft tissues: No suspicious soft tissue calcifications. IMPRESSION: No acute finding. Dictated by: Lexx Hutchins M.D. on 11/26/2022 at 19:46 Approved by: Lexx Hutchins M.D. on 11/26/2022 at 19:52
--- NOTE | 2022-11-26 19:36 | PC.NURSE ---
report given to MIGUEL Amador and care transferred.
--- NOTE | 2022-11-26 19:58 | PC.NURSE ---
Patient sitting up in stretcher stating he needs to leave, updated pt on pending results and current plan of care. Pt states he would know if worse was wrong with him, re-educated pt on risks and pending results. Pt remains sitting up and declines laying back, phone in hand, pt removed blood pressure cuff and declines reapplying it.
--- NOTE | 2022-11-26 20:45 | PC.NURSE ---
Assisted to clean blood off of patient face and head, no further lacerations noted, no active bleeding noted. Wound covered with 4x4 gauze and gauze wrap. Dr. Steward at bedside.
--- NOTE | 2022-11-26 20:48 | PC.NURSE ---
Blood pressure cuff reapplied, attempted to run blood pressure and patient removed blood pressure cuff. Education provided, pt declined, states I am fine and I want to leave. Dr. Steward aware.
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
== END 2022-11-26 20:50 | disposition left against medical advice (07) ==
PROVIDERS: Emergency Provider Emergency Medicine; Family Provider Student in an Organized Health Care Education/Training Program; PCP Internal Medicine
DX: S01.01XA Laceration without foreign body of scalp, initial encounter (principal); M79.89 Other specified soft tissue disorders; R00.0 Tachycardia, unspecified; V89.2XXA Person injured in unspecified motor-vehicle accident, traffic, initial encounter
CPT/HCPCS: 12002; 36415; 70450; 71045; 72125; 73130; 80048; 85025; 96372; 99285; 99291; 99292; G0390; J2270

== ENCOUNTER 2022-12-06 08:46 | Emergency (ER) | payer MEDICARE, MEDICAID, SELFPAY ==
[2021-07-31 21:50] VITALS: PULSE 81; RESP 1; RESP 26; O2SAT 92
[2022-12-06 08:50] VITALS: BP 136/67; PULSE 70; O2SAT 98
[2022-12-06 08:56] VITALS: BP 136/67; PULSE 71; RESP 20; TEMP 36.8; O2SAT 99; BMI 30.8
[2022-12-06 09:00] VITALS: PULSE 63; O2SAT 98
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
--- NOTE | 2022-12-06 09:19 | DI.CT.S_ITS ---
PROCEDURE: CT HEAD/BRAIN WO CON INDICATIONS: infection at stapled lac right scalp TECHNIQUE: Noncontrast 4.5 mm thick angled axial sections acquired from the foramen magnum to the vertex, with coronal and sagittal reformats. For radiation dose reduction, the following was used: automated exposure control, adjustment of mA and/or kV according to patient size. COMPARISON: [facility], CT, CT HEAD/BRAIN WO CON, 11/26/2022, 19:18. [facility], CT, CT HEAD/BRAIN WO CON, 07/31/2021, 19:13. FINDINGS: Image quality: Excellent. CSF spaces: Basal cisterns are patent. No extra-axial fluid collections. Ventricles are normal in size and shape. Brain: No midline shift. No intracranial masses or hemorrhage. Vick-white matter interface is normal. Skull and face: Redemonstration of right scalp skin jorden. There is increased soft tissue prominence of the right scalp soft tissues surrounding the region of skin jorden without definite fluid collection identified on this noncontrast CT. No evidence for soft tissue gas. Calvarium and visualized facial bones are intact, without suspicious lesions. Sinuses: Visualized sinuses and mastoids are clear. IMPRESSION: 1. CT head without acute intracranial abnormalities. 2. Interval increase in soft tissue swelling underlying multiple skin jorden within the right scalp without definite fluid collection identified. Evaluation limited due to absence of intravenous contrast. No evidence for soft tissue gas. If clinically indicated, further evaluation with ultrasound can be considered to evaluate for possible underlying drainable fluid collection. 3. No acute calvarial fractures. Dictated by: Cooper Shane M.D. on 12/06/2022 at 9:38 Approved by: Cooper Shane M.D. on 12/06/2022 at 9:40
[2022-12-06 09:33] VITALS: PULSE 68; O2SAT 94
[2022-12-06 09:34] VITALS: BP 112/61; PULSE 63; O2SAT 97
[2022-12-06 10:06] LABS: Add Manual Diff / Slide Review NO; Basophils Absolute Auto 100 /uL (0-100); Basophils Percent Auto 0.9 % (0-2); Eosinophils Absolute Auto 200 /uL (0-450); Eosinophils Percent Auto 3.3 % (2-4); Hematocrit 29.4 % (41-53); Hemoglobin 9.9 g/dL (13.5-17.5); Lymphocytes Absolute Auto 1800 /uL (1100-4500); Lymphocytes Percent Auto 26.7 % (25-40); Mean Corpuscular HGB Conc 33.9 % (30-36); Mean Corpuscular Hemoglobin 29.8 PG (26-34); Monocytes Absolute Auto 600 /uL (0-900); Monocytes Percent Auto 8.6 % (3-14); Neutrophils Absolute Auto 4100 /uL (1500-7000); Neutrophils Percent Auto 60.5 % (50-75); Platelet Count 315 X10^3/uL (150-400); Red Blood Cell Count 3.34 X10^6/uL (4.5-5.9); Red Cell Distribution Width 13.3 % (11.6-14.8); White Blood Cell Count 6.8 X10^3/uL (4.5-11.0)
[2022-12-06 10:16] LABS: Alanine Aminotransferase 17 IU/L (<50); Albumin 3.4 g/dL (3.5-5.0); Albumin Globulin Ratio 1.2 (1.0-2.8); Alkaline Phosphatase 86 U/L (38-126); Aspartate Aminotransferase 29 IU/L (17-59); BUN Creatinine Ratio 22.3 (6-22); Bilirubin Total 0.2 mg/dL (0.2-1.3); Blood Urea Nitrogen 21 mg/dL (9-20); Calcium 8.3 mg/dL (8.4-10.2); Carbon Dioxide 29 mmol/L (22-32); Chloride 103 mmol/L (98-107); Estimated Glomerular Filt Rate > 60 mL/min (>60); Globulin 2.9 g/dL (1.7-4.1); Glucose 95 mg/dL (70-100); HEMOLYSIS 29 (0-50); Lipase 103 U/L (23-300); Potassium 5.1 mmol/L (3.4-5.1); Sodium 137 mmol/L (137-145); Total Protein 6.3 g/dL (6.3-8.2)
[2022-12-06 10:48] VITALS: PULSE 57; O2SAT 97
== END 2022-12-06 10:50 | disposition home or self-care (01) ==
PROVIDERS: Emergency Provider Emergency Medicine; PCP Internal Medicine
DX: L03.811 Cellulitis of head [any part, except face] (principal); S01.01XD Laceration without foreign body of scalp, subsequent encounter
CPT/HCPCS: 36415; 70450; 80053; 83690; 85025; 87070; 87077; 87147; 87186; 87205; 99283; 99284

== ENCOUNTER 2023-08-18 11:39 | Emergency (ER) | payer MEDICARE, MEDICAID, SELFPAY ==
[2021-07-31 21:50] VITALS: PULSE 81; RESP 1; RESP 26; O2SAT 92
--- NOTE | 2023-08-18 11:49 | DI.RAD.S_ITS ---
PROCEDURE: XR CHEST 1V INDICATIONS: cough TECHNIQUE: One view of the chest was acquired. COMPARISON: [facility], CR, XR CHEST 1V, 11/26/2022, 19:15. FINDINGS: Surgical changes and devices: None. Lungs and pleura: Lung volumes are slightly diminished bilaterally. Minimal streaky bibasilar opacities likely representing atelectasis. No focal consolidation. No pleural effusions or pneumothorax. Mediastinum: Mediastinal contours appear normal. Heart size is normal. Bones and chest wall: No suspicious bony lesions. Overlying soft tissues appear unremarkable. IMPRESSION: Slightly diminished lung volumes with streaky bibasilar opacities which are favored to represent atelectasis. No focal consolidation. Dictated by: Cooper Shane M.D. on 08/18/2023 at 12:35 Approved by: Cooper Shane M.D. on 08/18/2023 at 12:36
[2023-08-18 11:51] VITALS: BP 214/136; PULSE 106; RESP 24; O2SAT 97; BMI 38.7
--- NOTE | 2023-08-18 12:09 | ED_ITS ---
HPI - SOB/Dyspnea General Chief Complaint: Shortness of Breath/Dyspnea Stated Complaint: SOB, Diaphoretic Time Seen by Provider: 08/18/23 11:42 Source: patient and EMS Mode of arrival: EMS Limitations: no limitations History of Present Illness HPI Narrative: 52-year-old male with history of hypertension, polysubstance use including IV heroin, amphetamines [facility]ness of breath and hypertension. Patient states he was treated for a cough 2 months ago with a Z-Blaine. He states that he felt like he temporarily got better, but now he has a cough again and feel short of breath on exertion. He initially told his dentist, who referred him to his healthcare clinic, in his health care clinic, who then called 911 due to elevated blood pressure. Related Data Home Medications Medication Instructions Recorded Confirmed buprenorphine 8 mg-naloxone 2 mg 2 film buccal Q24H 07/02/20 07/31/21 sublingual film (Suboxone) dextroamphetamine-amphetamine 15 15 mg PO BID 07/31/21 07/31/21 mg tablet Previous Rx's Medication Instructions Recorded lisinopril 10 mg tablet 10 mg PO DAILY #90 tabs 02/06/21 verapamil 80 mg tablet 80 mg PO BEDTIME #90 tabs 02/06/21 clonazepam 2 mg tablet See Rx Instructions PO BID #60 tabs 04/01/21 zolpidem 10 mg tablet 10 mg PO BEDTIME #20 tabs 04/01/21 clindamycin HCl 300 mg capsule 300 mg PO QID #40 caps 12/06/22 (Cleocin HCl) furosemide 20 mg tablet 20 mg PO DAILY #7 tabs 08/18/23 Allergies Allergy/AdvReac Type Severity Reaction Status Date / Time naproxen [NAPROXEN] Allergy Severe LE EDEMA Verified 08/18/23 11:51 Review of Systems Review of Systems Narrative: CONSTITUTIONAL- Denies: fever, chills, fatigue HEENT- Denies: sore throat, nosebleed, vision changes RESPIRATORY-reports: Nonproductive cough, shortness of breath on exertion Denies: wheezing CARDIAC- Denies: chest pain, edema, orthopnea GI- Denies: abdominal pain, nausea, vomiting, constipation, diarrhea - Denies: frequency, dysuria, hematuria, flank pain MSK- Denies: extremity pain, extremity swelling, joint pain, joint swelling SKIN- Denies: rash, itching, burn, swelling NEUROLOGICAL- Denies: headache, numbness, weakness, dizziness PSYCHIATRIC- Denies: anxiety, depression, suicidal ideation, homicidal ideation Patient History Medical History Hepatitis C History of heroin abuse Hypertension Migraines Traumatic brain injury (~2011) Social History Smoking Status: Never smoker substance use type: IV drugs Smoking Status: Never smoker alcohol intake frequency: holidays/special occasions only Substance Use Type: marijuana, heroin, IV drugs and methamphetamine Exam Initial Vital Signs Initial Vital Signs: Vital Signs Pulse Rate 106 H 08/18/23 11:51 Respiratory Rate 24 08/18/23 11:51 Blood Pressure 214/136 H 08/18/23 11:51 Pulse Oximetry 97 08/18/23 11:51 Oxygen Delivery Method Room Air 08/18/23 11:51 Const: Awake, alert, no acute distress, nontoxic appearing Eyes: PERRL, EOMI, conjunctiva normal ENT: Atraumatic, dentition normal, mucous membranes moist Cardiac: regular rate, regular rhythm RESP: unlabored, clear bilaterally, no wheezing GI: Atraumatic, soft, nontender, nondistended, no rebound, no guarding MSK: Atraumatic, full range of motion, pulses equal Skin: Warm, Dry, intact, no rashes Neuro: AO x3, CN II-XII grossly intact, moves all extremities Psych: flat affect, mood normal, not suicidal, not homicidal Course Course Course Narrative: Chronically well-appearing but no acutely toxic patient with longstanding cough and dyspnea on exertion. Patient is notably hypertensive on arrival, however he states that he is always hypertensive and he is working with primary care to decrease his blood pressure. He has been compliant with his medications and states it has been ?at least a week? since his last use of amphetamines. Vital signs unremarkable on room air Orders Ordered: ED Orders 08/18/23 11:49 Chest [XR chest 1V] Stat 08/18/23 12:14 BNP [NT-proBNP (BNP-Adult 18+)] Stat CBC Auto Diff [Complete Blood Count AUTO DIFF] Stat CMP [Comprehensive Metabolic Panel] Stat Procalcitonin Stat Troponin & CK Cardiac Panel Stat Discontinued Medications Furosemide (Furosemide 20 Mg Tablet) 20 mg PO NOW ONE Stop: 08/18/23 13:03 Last Admin: 08/18/23 13:08 Dose: 20 mg Documented By: SAMIA Reevaluation(s) Reevaluation #1: Laboratory work is reviewed, mild increase in kidney function, troponin is within normal limits, elevation in BNP. Chest x-ray was reviewed, no acute findings identified. Blood pressure has decreased while the patient has been in the emergency department without any additional interventions. Patient counseled of all lab and imaging findings. Patient's longstanding HTN and substance use are likely contributing patient's symptoms. At this time a small amount of lasix to be prescribed to patient. No indication for antibiotics. Strict PCP follow up advised. Recommended continued cessation of all illicit substances. Vital Signs Vital signs: Vital Signs - 8 hr 08/18/23 11:51 08/18/23 12:13 08/18/23 12:14 Pulse Rate 106 H 91 H Respiratory Rate 24 Blood Pressure 214/136 H 185/134 H Pulse Oximetry 97 96 Oxygen Delivery Method Room Air 08/18/23 12:14 08/18/23 12:30 08/18/23 12:30 Pulse Rate 90 86 Respiratory Rate Blood Pressure 180/121 H Pulse Oximetry 96 96 Oxygen Delivery Method 08/18/23 13:00 08/18/23 13:00 Pulse Rate 82 Respiratory Rate Blood Pressure 177/120 H Pulse Oximetry 96 Oxygen Delivery Method MDM - SOB/Dyspnea Differential Diagnosis Differential diagnosis: Likely acute exacerbation of chronic obstructive airways disease, congestive heart failure and community acquired pneumonia Lab Data 08/18/23 12:14 08/18/23 12:14 Labs: Lab Results 08/18/23 Range/Units 12:14 WBC 8.6 (4.5-11.0) X10^3/uL RBC 5.83 (4.5-5.9) X10^6/uL Hgb 17.6 H (13.5-17.5) g/dL Hct 51.0 (41-53) % MCV 87.5 (80-100) fL MCH 30.1 (26-34) PG MCHC 34.4 (30-36) % RDW 13.6 (11.6-14.8) % Plt Count 398 (150-400) X10^3/uL Neut % (Auto) 69.5 (50-75) % Lymph % (Auto) 22.0 L (25-40) % Borden % (Auto) 6.6 (3-14) % Eos % (Auto) 0.9 L (2-4) % Baso % (Auto) 1.0 (0-2) % Neut # (Auto) 6000 (0268-5209) /uL Lymph # (Auto) 1900 (6770-5336) /uL Borden # (Auto) 600 (0-900) /uL Eos # (Auto) 100 (0-450) /uL Baso # (Auto) 100 (0-100) /uL Sodium 141 (137-145) mmol/L Potassium 4.3 (3.4-5.1) mmol/L Chloride 101 (98-107) mmol/L Carbon Dioxide 28 (22-32) mmol/L BUN 23 H (9-20) mg/dL Creatinine 1.36 H (0.66-1.25) mg/dL Estimated GFR > 60 (>60) mL/min BUN/Creatinine Ratio 16.9 (6-22) Glucose 104 H (70-100) mg/dL Calcium 10.5 H (8.4-10.2) mg/dL Total Bilirubin 0.3 (0.2-1.3) mg/dL AST 41 (17-59) IU/L ALT 28 (<50) IU/L Alkaline Phosphatase 93 (38-126) U/L Total Creatine Kinase 120 (55-170) U/L Troponin I 0.014 (0.01-0.034) ng/mL NT-Pro-B Natriuret Pep 1410 H (<125) pg/mL Total Protein 8.9 H (6.3-8.2) g/dL Albumin 5.0 (3.5-5.0) g/dL Globulin 3.9 (1.7-4.1) g/dL Albumin/Globulin Ratio 1.3 (1.0-2.8) Procalcitonin 0.07 (<0.5) ng/mL Discharge Plan Departure Patient Disposition: Home Clinical Impression: Breathlessness on exertion Instructions: DI for Shortness of Breath Activity Restrictions/Additional Instructions: YOU WERE SEEN TODAY FOR SHORTNESS OF BREATH. NO OBVIOUS CAUSE WAS FOUND ON YOUR CHEST X-RAY, HOWEVER YOUR LABORATORY WORK INDICATES THAT YOU MAY BE RETAINING A SMALL AMOUNT OF FLUID. PLEASE MAKE SURE THAT YOU TAKE ALL OF YOUR BLOOD PRESSURE MEDICATIONS PRESCRIBED AND CONTINUE TO AVOID ALL ILLEGAL DRUGS INCLUDING AMPHETAMINES, THESE CAN INCREASE HER BLOOD PRESSURE AND LEAD TO CONGESTIVE HEART FAILURE. YOU ARE BEING PRESCRIBED A SHORT COURSE OF FUROSEMIDE TODAY, THIS IS A DIURETIC THAT CAN GET RID OF EXCESS WATER AND MAY HELP HER SHORTNESS OF BREATH. FOLLOW UP WITH YOUR PRIMARY CARE PHYSICIAN. Prescriptions: New furosemide 20 mg tablet 20 mg PO DAILY Qty: 7 0RF No Action verapamil 80 mg tablet 80 mg PO BEDTIME Qty: 90 0RF lisinopril 10 mg tablet 10 mg PO DAILY Qty: 90 0RF zolpidem 10 mg tablet 10 mg PO BEDTIME Qty: 20 0RF clonazepam 2 mg tablet See Rx Instructions PO BID Qty: 60 0RF Rx Instructions: 4mg qAM, 2mg qHS buprenorphine-naloxone [Suboxone] 8-2 mg film 2 film BUCCAL Q24H dextroamphetamine-amphetamine 15 mg tablet 15 mg PO BID clindamycin HCl [Cleocin HCl] 300 mg capsule 300 mg PO QID Qty: 40 0RF Referrals: Osorio Brown MD [Primary Care Provider] - Stand Alone Forms: Patient Portal/API
[2023-08-18 12:13] VITALS: PULSE 91; O2SAT 96
[2023-08-18 12:14] VITALS: BP 185/134; PULSE 90; O2SAT 96
[2023-08-18 12:23] LABS: Add Manual Diff / Slide Review NO; Basophils Absolute Auto 100 /uL (0-100); Eosinophils Absolute Auto 100 /uL (0-450); Eosinophils Percent Auto 0.9 % (2-4); Hemoglobin 17.6 g/dL (13.5-17.5); Lymphocytes Absolute Auto 1900 /uL (1100-4500); Mean Corpuscular HGB Conc 34.4 % (30-36); Mean Corpuscular Hemoglobin 30.1 PG (26-34); Mean Corpuscular Volume 87.5 fL (80-100); Monocytes Absolute Auto 600 /uL (0-900); Monocytes Percent Auto 6.6 % (3-14); Neutrophils Absolute Auto 6000 /uL (1500-7000); Neutrophils Percent Auto 69.5 % (50-75); Platelet Count 398 X10^3/uL (150-400); Red Blood Cell Count 5.83 X10^6/uL (4.5-5.9); Red Cell Distribution Width 13.6 % (11.6-14.8); White Blood Cell Count 8.6 X10^3/uL (4.5-11.0)
[2023-08-18 12:30] VITALS: BP 180/121; PULSE 86; O2SAT 96
[2023-08-18 12:42] LABS: Alanine Aminotransferase 28 IU/L (<50); Albumin Globulin Ratio 1.3 (1.0-2.8); Alkaline Phosphatase 93 U/L (38-126); Aspartate Aminotransferase 41 IU/L (17-59); BUN Creatinine Ratio 16.9 (6-22); Bilirubin Total 0.3 mg/dL (0.2-1.3); Blood Urea Nitrogen 23 mg/dL (9-20); Calcium 10.5 mg/dL (8.4-10.2); Carbon Dioxide 28 mmol/L (22-32); Chloride 101 mmol/L (98-107); Creatine Kinase 120 U/L (55-170); Estimated Glomerular Filt Rate > 60 mL/min (>60); Globulin 3.9 g/dL (1.7-4.1); Glucose 104 mg/dL (70-100); HEMOLYSIS < 15 (0-50); Potassium 4.3 mmol/L (3.4-5.1); Sodium 141 mmol/L (137-145); Total Protein 8.9 g/dL (6.3-8.2)
[2023-08-18 12:53] LABS: NT-proBNP (BNP-Adult 18+) 1410 pg/mL (<125); Troponin I 0.014 ng/mL (0.01-0.034)
[2023-08-18 12:58] LABS: Procalcitonin 0.07 ng/mL (<0.5)
[2023-08-18 13:00] VITALS: BP 177/120; PULSE 82; O2SAT 96
[2023-08-18] MEDS: FUROSEMIDE 20 MG TABLET PO (13:08)
== END 2023-08-18 13:27 | disposition home or self-care (01) ==
PROVIDERS: Emergency Provider Emergency Medicine; PCP Internal Medicine
DX: R06.02 Shortness of breath (principal); I10 Essential (primary) hypertension; R05.9 Cough, unspecified
CPT/HCPCS: 36415; 71045; 80053; 82550; 83880; 84145; 84484; 85025; 99284